=== PATIENT | male | born 1965 | race Caucasian/White ===

== ENCOUNTER 2024-05-29 19:00 | Outpatient (CLI) | payer OTHER, SELFPAY ==
--- OUTSIDE RECORDS SUMMARY | 2024-06-03 08:13 | XMS_ITS | Encounter Summary ---
Author Organization [facility] Address [address] [place] [address] Phone Care Team Providers Care Thickener Operator Name Role Phone Johnnie Red MD Primary Care Provider [phone] Reason for Referral * Diagnostic Imaging (Routine) - Closed Specialty Diagnoses / Procedures Referred By Rowdy carrillo Referred To Contact Diagnoses Orthopedic aftercare Procedures XR Hip Left 2 or 3 Views W Pelvis Claude Colbert MD [address] [place] [address] Phone: tel: fax: [address] [address] Referral ID Status Reason Start Date Expiration Date Visits Re quested Visits Authorized [id number] Closed 05/27/2022 06/26/2023 1 1 RUMENT FITTER Reason for Visit * Reason Comments Post-op Encounter Details Date Type Department Care Team (Latest Contact Info) Description 06/10/2022 8:50 AM INSTRUMENT FITTER Office Visit [facility] Building [address] [place] [id number] Claude Colbert MD [address] [place] [address] Orthopedic aftercare (Primary Dx); History of bilateral total hip arthroplasty Social History Tobacco Use Types Packs/Day Years Used Date Smoking Tobacco: Never Smokeless Tobacco: Never Alcohol Use Standard Drinks/Week Comments Yes 6 (1 standard drink = 0.6 oz pur e alcohol) AUDIT-C Answer Date Recorded Q1: How often do you have a drink containing alc ohol? 2-3 times a week 05/12/2022 Q2: How many drinks containi ng alcohol do you have on a typical day when you are drinking? 3 or 4 05/12/2022 Q3: How often do you have si x or more drinks on one occasion? Less than monthly 05/12/2022 Sex and Gender Information Value Date Recorded Sex Assigned at Not on file Legal Sex Male 10:40 AM CDT Gender Identity Not on file Sexual Orientation Not on file documented as of this encounter Progress Notes * Claude Colbert MD - 06/10/2022 8:50 AM CST Images from the original note were not included. POST- OPERATIVE PATIENT VISIT Arthroplasty Left Total Hip - Depuy - Left 05/12/2022 Arthroplasty Left Total Hip - Depuy - Right 05/23/2020 INTERIM HISTORY: Norman Lane is status post left total hip replacement. Patient seen today for routine follow up and is doing well. He overdid it in the garden one day andhad a increase in his pain but has been improving. PHYSICAL EXAM: Left Hip Pain: minimal with activity Incision: healing with no signs of infection, induration, or drainage, scab present Range of Motion: minimal pain with gentle range of motion assessment Pulses Intact: Yes Dependent Edema: No Neurological Status Intact: Yes Right Hip Pain: minimal with activity Incision: healed Range of Motion: minimal pain with gentle range of motion assessment Pulses Intact: Yes Dependent Edema: No Neurological Status Intact: Yes REVIEW OF XRAYS/STUDIES: Radiographs ordered and reviewed. Shows components are well positioned without any signs of loosening or failure. There is a small fragment of bone near the left lesser trochanter that was present onthe immediate postoperative radiographs. DX: Norman Lane is a 57 y.o. male status post left total hip replacement and is making appropriate progress. TREATMENT PLAN: 1. The patient has been full weight bearing. 2. Encourage exercises to strengthen core and hip muscles. FOLLOW UP: 1 year postop with XR This note written with assistance of Roosevelt Guevara MD Orthopaedic Surgery PGY-5 ATTENDING ATTESTATION I was present for the critical portion of the history, physical examination and participated in theradiographic review and medical decision making on this patient. I agree with the findings in the report of the above resident/fellow dictating using Dial a Dealer Direct software. Claude Colbert MD RUMENT FITTER documented in this encounter Plan of Treatment Not on file documented as of this encounter Results * XR Hip Left 2 or 3 Views W Pelvis (06/10/2022 8:57 AM INSTRUMENT FITTER) Anatomical Region Laterality Modality Lower Extremities, Hip, Pelvis Left C omputed Radiography 06/10/2022 9:00 AM INSTRUMENT FITTER Impressions 06/10/2022 9:00 AM INSTRUMENT FITTER 1. ??Unchanged left total hip arthroplasty in near-anatomic position. Electronically signed by: Rosey Gutierrez MD Narrative 06/10/2022 9:00 AM INSTRUMENT FITTER EXAMINATION: XR HIP LEFT 2 OR 3 VIEWS W PELVIS HISTORY: ??Left hip arthroplasty FINDINGS: 2 views of the left hip are compared to 05/12/2022. There is an unchanged left total hip arthroplasty in near-anatomic alignment. ??No acute periprosthetic fracture or osteolysis is identified. ??Procedure related soft tissue gas has resolved. Procedure Note Sandi Gutierrez MD - 06/10/2022 EXAMINATION: XR HIP LEFT 2 OR 3 VIEWS W PELVIS HISTORY: Left hip arthroplasty FINDINGS: 2 views of the left hip are compared to 05/12/2022. There is an unchanged left total hip arthroplasty in near-anatomic alignment. No acute periprosthetic fracture or osteolysis is identified. Procedure related soft tissue gas has resolved. IMPRESSION: 1. Unchanged left total hip arthroplasty in near-anatomic position. Electronically signed by: Rosey Gutierrez MD us Claude Colbert MD IMG XR PROCEDURES Final R esult documented in this encounter Visit Diagnoses Diagnosis Orthopedic aftercare- Primary Unspecified orthopedic aftercare History of bilateral total hip arthroplasty Orthopedic aftercare Unspecified orthopedic aftercare documented in this encounter Care Teams Thickener Operator Relationship Specialty Start Date End Date Johnnie Red MD [address] [place] [address] PCP - General Family Medicine 02/14/20 documented as of this encounter
--- OUTSIDE RECORDS SUMMARY | 2024-06-03 08:13 | XMS_ITS | Encounter Summary ---
Author Organization [facility] Address [address] [place] [address] Phone Care Team Providers Care Pharmacy Affairs Assistant Name Role Phone Johnnie Red MD Primary Care Provider Encounter Details Date Type Department Care Team (Late st Contact Info) Description 09/07/2022 7:00 AM CDT Telemedicine [facility] Orthopaedic Surgery [facility] Medical Office Building [address] [place] [id number] Claude Colbert MD [address] [facility] [address] [place] [address] Aftercare following bilateral hip joint replacement surgery (Primary Dx) Social History Tobacco Use Types Packs/Day Years [...] Progress Notes * Claude Colbert MD - 09/07/2022 7:00 AM CDT Images from the original note were not included. ESTABLISHED PATIENT VISIT This was a telemedicine visit with Norman Lane alone which took place via Telephone Other - patient preference . During the visit, I was located in the office and the patient was located at home in the state of [place]. The patient visit started at 7:07 a.m. and ended at 7:12 a.m.. This reflects the timespent in medical discussion. The patient has been informed that the visit may not be secure and acknowledged the information. I have explained the option of participating in a telephone or video visit during the COVID-19 public health emergency to the patient. After being given an opportunity to ask questions about and discuss this type of visit, the patient verbally consented to proceeding with the telephone/video visit.The patient understands that this service replaces an office visit and they may be billed and/or responsible for any applicable copayments. Claude Colbert MD INTERIM HISTORY Patient is now 4 months out from left total hip arthroplasty. After we last saw him we gave him some steroids for some continued swelling and stiffness. He states that he is definitely better on the steroids and he feels like he is made improvement with his range of motion and swelling has improved. His back pain is also not as irritated. He would like to get back into the gym. PHYSICAL EXAMINATION No acute distress, alert and oriented X 3. Per the patient he is doing better than he was before the steroids but does recognize that the steroid just in the last week and is feeling some of the stiffness and swelling returned but not as bad as it was before. REVIEW OF X-RAYS/STUDIES No new imaging IMPRESSION/DIAGNOSIS 4 months status post left total hip arthroplasty with some continued swelling and stiffness. TREATMENT/PLAN At this time we discussed continuing him on some low-dose steroid. We will drop him down to 3 mg a day for the next month to try and slowly wean him off. Patient is agreeable with this plan. He will let us know if anything changes. Assuming that he continues to do well we would have him come back for his 1 year follow-up surveillance checkup but glad to see him sooner if there is any issues or problems. Claude Colbert MD Operations Project Manager of Orthopedic Surgery Joint Preservation, Resurfacing, and Replacement Service [facility] Orthopedics [facility] Dr. Claude Colbert dictating using Fluency Direct. Replenishment Buyer variances may occur. documented in this encounter Plan of Treatment Not on file documented as of this encounter Visit Diagnoses Diagnosis Aftercare following bilateral hip joint replacement surgery- Primary documented in this encounter Care Teams Pharmacy Affairs Assistant Relationship Specialty Start Date End Date Johnnie Red MD [address] [place] [address] PCP - General Family Medicine 02/14/20 documented as of this encounter
--- OUTSIDE RECORDS SUMMARY | 2024-06-03 08:13 | XMS_ITS | Clinical Summary ---
Author Organization [facility] Address [address] [place] [address] Care Team Providers Care Early Morning Name Role Phone Johnnie Red MD Primary Care Provider [phone] Allergies No known active allergies Medications cetirizine (ZyrTEC) 10 mg tabletIndicatio ns:Seasonal Allergic Rhinitis Take 1 tablet (10 mg total) by mouth as needed for allergies Active mometasone (NASONEX) 50 mcg/actuation nasal sprayIndication s:Allergic Rhinitis Administer 2 sprays into each nostril as needed Active celecoxib (CeleBREX) 200 mg capsuleIndicati ons:Osteoarthri tis,Postoperati ve Acute Pain Take 1 tablet twice daily after surgery until prescription is finished. You should already have this prescription at home. Start on morning of 05/24/2020. 10 capsule 0 Active traMADoL (ULTRAM) 50 mg tabletIndicatio ns:Pain Take 1 tablet (50 mg total) by mouth every 8 (eight) hours as needed for pain (1st line) 42 tablet 2 Active pregabalin (LYRICA) 75 mg capsuleIndicati ons:Postoperati ve Acute Pain Take 1 capsule (75 mg total) by mouth 2 (two) times a day for 14 days 28 capsule 2 Active oxyCODONE (ROXICODONE) 5 mg immediate release tabletIndicatio ns:Pain Take 1 tablet (5 mg total) by mouth every 4 (four) hours as needed for pain for up to 30 doses 30 tablet 2 Active meloxicam (MOBIC) 15 mg tabletIndicatio ns:Osteoarthrit is Take 1 tablet (15 mg total) by mouth daily 30 tablet 2 Active aspirin 81 mg enteric coated tabletIndicatio ns:prevention of thrombosis Take 1 tablet (81 mg total) by mouth 2 (two) times a day 60 tablet 2 Active ergocalciferol (VITAMIN D) 50,000 unit capsuleIndicati ons:Vitamin D Deficiency Take 1 capsule (50,000 Units total) by mouth once a week 10 capsule 2 Active docusate sodium (COLACE) 100 mg capsuleIndicati ons:constipatio n Take 1 capsule (100 mg total) by mouth 2 (two) times a day Active predniSONE (DELTASONE) 1 mg tablet Take 3 tablets daily 90 tablet 3 Active tadalafiL (CIALIS) 20 mg tablet Take 1 tablet (20 mg total) by mouth 3 Active Active Problems Problem Noted Date Diagnosed Date Arthritis of left hip 05/12/2022 Vitamin D deficiency 04/28/2022 Primary osteoarthritis of left hip 02/04/2022 Overview (02/04/2022): Added automatically from request for surgery [id number] RUI on CPAP 05/21/2020 Class 2 obesity in adult 05/21/2020 Primary osteoarthritis of right hip 04/29/2020 Overview (04/29/2020): Added automatically from request for surgery [id number] Immunizations Name Administration Dates Next Due Flucelvax Influenza Quad 04/26/2020,04/01/2017 Surgical History Surgery Date Site/Laterality Comments COLONOSCOPY HIP ARTHROPLASTY Right Medical History Medical History Date Comments Osteoarthritis Sleep apnea cpap Allergic rhinitis Family History Medical History Relation Name Comments Coronary artery disease Father Anesthesia problems Neg Hx Relation Name Status Comments Father Social History Tobacco Use Types Packs/Day Years Used Date Smoking Tobacco: Never Smokeless Tobacco: Never Tobacco Cessation:Counseling Given: Not Answered Alcohol Use Standard Drinks/Week Comments Yes 6 [...] on file Sexual Orientation Not on file Obstetrics History Last Filed Vital Signs Vital Sign Reading Time Taken Comments Blood Pressure 132/64 05/29/2022 11:34 AM FIREWORKS INSPECTOR Pulse 68 05/29/2022 11:34 AM FIREWORKS INSPECTOR Temperature 35.9 ??C (96.7 ??F) 05/29/2022 11:[address] Respiratory Rate 18 05/29/2022 11:34 AM FIREWORKS INSPECTOR Oxygen Saturation 98% 05/29/2022 11:34 AM FIREWORKS INSPECTOR Inhaled Oxygen Concentration - - Weight 130.2 kg (287 lb) 05/12/2022 5:20 AM FIREWORKS INSPECTOR Height 193 cm (6' 4 ) 05/14/2022 11:30 AM FIREWORKS INSPECTOR Body Mass Index 34.93 05/12/2022 5:20 AM FIREWORKS INSPECTOR Plan of Treatment Health Maintenance Due Date Last Done Comments Colon Cancer Screening-Colonoscopy 1965 Depression Screening 1965 Hepatitis C Screening 1965 Prostate Cancer Screening-PSA 1965 DTaP/Tdap/Td Vaccine (1 - Tdap) 01/16/1975 Hepatitis B Screening 01/16/1982 Regular Well Visit/Exam 18-64 01/16/1982 Zoster Vaccine (1 of 2) 01/16/2014 Influenza Vaccine (#1) 2024 0, 04/01/2017 Pneumococcal vaccine <65 Aged Out No longer eligible based on patient's age to complete this topic Medical Devices Implanted Type Area Telegraph Lineman Device Identifier Shelf Expiration Date Model / Serial / Lot DepStyleTread Orthopaedics Inc [id number] Cup 55mm Acetabular Bi Mentum Femoral Proximal Press Fit - [id number] - [id number] Implanted:Qty: 1 on 05/23/2020 by Claude Colbert MD at [facility] Right: Hip Depuy [employer] [id number] 02/28/2024 [id number] / [id number] / [id number] Depuy [employer] [id number] Liner 55mm 28mm Acetabular Bi Mentum Femoral Proximal Polyethylene - [id number] - [id number] Implanted:Qty: 1 on 05/23/2020 by Claude Colbert MD at [facility] Right: Hip Depuy [employer] [id number] 11/28/2023 [id number] / [id number] / [id number] Depuy [employer] [id number] Actis Collar Hip 9 High Offset Stem Femoral - [id number] Implanted:Qty: 1 on 05/23/2020 by Claude Colbert MD at [facility] Right: Hip Depuy [employer] [id number] 02/27/2030 [id number] / / [id number] Depuy Orthopaed[employer] Inc [id number] Articul/Lake 28mm Cementless Hip +1.5mm 12/14 Taper Head Femoral Latex Free - [id number] Implanted:Qty: 1 on 05/23/2020 by Claude Colbert MD at [facility] Right: Hip Depuy [employer] [id number] 03/30/2025 [id number] / / [id number] Depuy [employer] Cup 55mm Acetabular Bi Mentum Femoral Proximal Press Fit [id number] - [id number] Implanted:Qty: 1 on 05/12/2022 by Claude Colbert MD at [facility] Left: Hip Depuy [employer] [id number] 06/30/2024 [id number] / / [id number] Description:Implant pause pe rformed Depuy [employer] Inc Liner Acet Hip Size 28 Poly Bi Mentum Altrx 55mm [id number] - [id number] Implanted:Qty: 1 on 05/12/2022 by Claude Colbert MD at [facility] Left: Hip Depuy [employer] [id number] 02/27/2027 [id number] / / [id number] Description:Implant pause pe rformed Depuy [employer] Inc Actis L111 Mm Collar Hip 8 High Offset Stem Femoral [id number] - [id number] Implanted:Qty: 1 on 05/12/2022 by Cluade Colbert MD at [facility] Left: Hip Depuy [employer] [id number] 02/28/2032 [id number] / / [id number] Description:Implant pause pe rformed Depuy [employer] Inc Articul/Lake 28mm Cementless Hip +1.5mm 05/13 Taper Head Femoral Latex Free [id number] - [id number] Implanted:Qty: 1 on 05/12/2022 by Claude Colbert MD at [facility] Left: Hip Depuy [employer] [id number] 02/27/2027 [id number] / / [id number] Description:Implant pause pe rformed Insurance [facility] CHO[facility] PL[facility] Advance Directives For more information, please contact: [phone] * Full Code (Latest Code Status on File) Date Activated Date Inactivated Comments 05/23/2020 9:13 AM 05/23/2020 5:14 PM Care Teams Early Morning Relationship Specialty Start Date End Date Johnnie Red MD [address] [place] [address] PCP - General Family Medicine 02/14/20
--- OUTSIDE RECORDS SUMMARY | 2024-06-03 08:13 | XMS_ITS | Referral Summary ---
Author Organization [facility] Address [address] [place] [address] Care Team Providers Care Optical Fabrication Technician Name Role Phone Johnnie Red MD Primary Care Provider [phone] Allergies No known active allergies Medications cetirizine [...] (02/04/2022): Added automatically from request for surgery [id number] RUI on CPAP 05/21/2020 Class 2 obesity in adult 05/21/2020 Primary osteoarthritis of right hip 04/29/2020 Overview (04/29/2020): Added automatically from request for surgery [id number] Immunizations Name Administration Dates Next Due Flucelvax Influenza Quad 04/26/2020,04/01/2017 Social History Tobacco Use Types Packs/Day Years [...] on file Sexual Orientation Not on file Last Filed Vital Signs Vital Sign Reading Time Taken Comments Blood Pressure 132/64 05/29/2022 11:34 AM DIGITAL MARKETING OFFICER Pulse 68 05/29/2022 11:34 AM DIGITAL MARKETING OFFICER Temperature 35.9 ??C (96.7 ??F) 05/29/2022 11:[address] Respiratory Rate 18 05/29/2022 11:34 AM DIGITAL MARKETING OFFICER Oxygen Saturation 98% 05/29/2022 11:34 AM DIGITAL MARKETING OFFICER Inhaled Oxygen Concentration - - Weight 130.2 kg (287 lb) 05/12/2022 5:20 AM DIGITAL MARKETING OFFICER Height 193 cm (6' 4 ) 05/14/2022 11:30 AM DIGITAL MARKETING OFFICER Body Mass Index 34.93 05/12/2022 5:20 AM DIGITAL MARKETING OFFICER Plan of Treatment Not on file Medical Devices Implanted Type Area It Corporate Recruiter Device Identifier Shelf Expiration Date Model / Serial / Lot Depuy Orthopaedics Inc [id number] Cup 55mm Acetabular Bi Mentum Femoral Proximal Press Fit - [id number] - [id number] Implanted:Qty: 1 on 05/23/2020 by Claude Colbert MD at [facility] Right: Hip Depuy [employer] Inc [id number] 02/28/2024 [id number] / [id number] / [id number] Depuy [employer] [id number] Liner 55mm 28mm Acetabular Bi Mentum Femoral Proximal Polyethylene - [id number] - [id number] Implanted:Qty: 1 on 05/23/2020 by Claude Colbert MD at [facility] Right: Hip Depuy [employer] Inc [id number] 11/28/2023 [id number] / [id number] / [id number] Depuy [employer] [id number] Actis Collar Hip 9 High Offset Stem Femoral - [id number] Implanted:Qty: 1 on 05/23/2020 by Claude Colbert MD at [facility] Right: Hip Depuy [employer] Inc [id number] 02/27/2030 [id number] / / [id number] Depuy [employer] Inc [id number] Articul/Lake 28mm Cementless Hip +1.5mm /14 Taper Head Femoral Latex Free - [id number] Implanted:Qty: 1 on 05/23/2020 by Claude Colbert MD at [facility] Right: Hip Depuy [employer] Inc [id number] 03/30/2025 [id number] / / [id number] Depuy [employer] Cup 55mm Acetabular Bi Mentum Femoral Proximal Press Fit [id number] - [id number] Implanted:Qty: 1 on 05/12/2022 by Claude Colbert MD at [facility] Left: Hip Depuy [employer] [id number] 06/30/2024 [id number] / / [id number] Description:Implant pause pe rformed Depuy [employer] Inc Liner Acet Hip Size 28 Poly Bi Mentum Altrx 55mm [id number] - [id number] Implanted:Qty: 1 on 05/12/2022 by Claude Colbert MD at [facility] Left: Hip Depuy [employer] [id number] 02/27/2027 [id number] / / [id number] Description:Implant pause pe rformed Depuy [employer] Inc Actis L111 Mm Collar Hip 8 High Offset Stem Femoral [id number] - [id number] Implanted:Qty: 1 on 05/12/2022 by Claude Colbert MD at [facility] Left: Hip Depuy [employer] [id number] 02/28/2032 [id number] / / [id number] Description:Implant pause pe rformed Depuy [employer] Inc Articul/Lake 28mm Cementless Hip +1.5mm 14 Taper Head Femoral Latex Free [id number] - [id number] Implanted:Qty: 1 on 05/12/2022 by Claude Colbert MD at [facility] Left: Hip [employer]uy [employer] [id number] 02/27/2027 [id number] / / [id number] Description:Implant pause pe rformed Insurance Advance Directives For more information, please contact: [phone] * Full Code (Latest Code Status on File) Date Activated Date Inactivated Comments 05/23/2020 9:13 AM 05/23/2020 5:14 PM Care Teams Optical Fabrication Technician Relationship Specialty Start Date End Date Johnnie Red MD [address] [place] [address] PCP - General Family Medicine 02/14/20
--- OUTSIDE RECORDS SUMMARY | 2024-06-03 08:13 | XMS_ITS | Encounter Summary ---
Author Organization [facility] Address [address] [place] [address] Phone Care Team Providers Care Bull Ladle Tender Name Role Phone Johnnie Red MD Primary Care Provider [phone] Reason for Referral * Diagnostic Imaging (Routine) - Closed Specialty Diagnoses / Procedures Referred By Rowdy carrillo Referred To Contact Diagnoses Aftercare following bilateral hip joint replacement surgery Procedures XR Hip Left 2 or 3 Views W Pelvis Claude Colbert MD [facility] [address] [address] Phone: tel: fax: [facility] Radiology [address] [place] [address] Phone: tel: Referral ID Status Reason Start Date Expiration Date Visits Re quested Visits Authorized [id number] Closed 06/04/2023 07/03/2024 1 1 SLINGER Reason for Visit * Reason Comments Pain Encounter Details Date Type Department Care Team (Late st Contact Info) Description 06/09/2023 10:10 AM DOOR SLINGER Office Visit [facility] Orthopaedic Surgery [address] [place] [address] Medical Office Building [address] [place] [id number] Claude Colbert MD [address] [facility] [address] [place] [address] Aftercare following bilateral hip joint replacement surgery [...] Progress Notes * Claude Colbert MD - 06/09/2023 10:10 AM CST RETURN PATIENT VISIT This is [facility] scribing for Dr. Claude Colbert in his presence. INTERIM HISTORY: Norman Lane is status 1 year post left total hip replacement. Patient seen today for routine follow up and is doing well. States his left incision area itches. Disucssed to use Vasaline and if not improved to call and we will send some steroid cream to help calm down the itch. Other than that feels great with both hips. Mccray Hip Score: LEFT HIP PAIN: None LIMP: None SUPPORT: None DISTANCE: Unlimited STAIRS: Normal SITTING: Any Chair 1 Hour SHOES/SOCKS: Easy PUBLIC TRANSPORTATION: Yes PHYSICAL EXAM: Height: Weight: BMI: There is no height or weight on file to calculate BMI. Left Hip Hip Pain is noted: None Skin Status: Previous incision healed Trendelenberg: Negative Range of Motion: Start of flexion: 0 End of flexion: 100 Abduction: 30 Adduction: 20 ERE: 40 SHEILA: 20 Deformity: No deformity noted Leg Length Discrepancy: None Neurovascular status: intact Abductor Strength: 5/5 Pulses Intact: Yes Dependent Edema: No Neurological Status Intact: Yes REVIEW OF XRAYS/STUDIES: Radiographs ordered and reviewed. Shows components are well positioned without any signs of loosening or failure. DX: Norman Lane is a 58 y.o. male status post left total hip replacement. TREATMENT PLAN: 1. The patient has been full weight bearing. 2. Encourage exercises to strengthen core and hip muscles. 3. Next visit for his 5 year post op- will look at both hips - April 2027 FOLLOW UP: As long as the patient continues to do well then follow up for routine surveillance visits with ourNurse Practitioner/Physician Venipuncturist to monitor radiograph images. Patient is welcome to come back and see if there are any issues or problems. [facility] Scribe for Dr Claude Colbert Joint Reconstruction Department of Orthopaedic Surgery [facility] Orthopaedics Claude Colbert MD Chiller Operator of Orthopedic Surgery Joint Preservation, Resurfacing, and Replacement Service [facility] Orthopedics [facility] SLINGER documented in this encounter Plan of Treatment Not on file documented as of this encounter Results * XR Hip Left 2 or 3 Views W Pelvis (06/09/2023 9:53 AM DOOR SLINGER) Anatomical Region Laterality Modality Lower Extremities, Hip, Pelvis Left C omputed Radiography 06/09/2023 10:2 2 AM DOOR SLINGER Impressions 06/09/2023 10:22 AM DOOR SLINGER Unchanged left total hip arthroplasty in near-anatomic position. Electronically signed by: Navi Paul M.D. Narrative 06/09/2023 10:22 AM DOOR SLINGER EXAMINATION: XR HIP LEFT 2 OR 3 VIEWS W PELVIS HISTORY: Left hip osteoarthritis FINDINGS: 2 view examination of the left hip is compared with a study from 06/10/2022. ??The left total hip arthroplasty remains in near-anatomic position. ??There is no fracture, asymmetric liner wear, or component migration. ??Right total hip arthroplasty is also unchanged. Procedure Note Navi Paul MD - 06/09/2023 EXAMINATION: XR HIP LEFT 2 OR 3 VIEWS W PELVIS HISTORY: Left hip osteoarthritis FINDINGS: 2 view examination of the left hip is compared with a study from 06/10/2022. The left total hip arthroplasty remains in near-anatomic position. There is no fracture, asymmetric liner wear, or component migration. Right total hip arthroplasty is also unchanged. IMPRESSION: Unchanged left total hip arthroplasty in near-anatomic position. Electronically signed by: Navi Paul M.D. Claude Colbert MD IMG XR PROCEDURES Final R esult documented in this encounter Visit Diagnoses Diagnosis Aftercare following bilateral hip joint replacement surgery- Primary Aftercare following bilateral hip joint replacement surgery documented in this encounter Historical Medications * This list may reflect changes made after this encounter. tadalafiL (CIALIS) 20 mg tablet Take 1 tablet (20 mg total) by mouth 04/28/2023 added in this encounter Care Teams Bull Ladle Tender Relationship Specialty Start Date End Date Johnnie Red MD [facility] [place] [address] PCP - General Family Medicine 02/14/20 documented as of this encounter
--- OUTSIDE RECORDS SUMMARY | 2024-06-03 08:13 | XMS_ITS | Encounter Summary ---
Author Organization [facility] Address [address] [place] [address] Phone Care Team Providers Care Robotics Application Engineer Name Role Phone Johnnie Red MD Primary Care Provider [phone] Encounter Details Date Type Department Care Team (Late st Contact Info) Description 09/07/2022 Orders Only [facility] Orthopaedic Surgery [address] [place] [address] Medical Office Building 4 [address] [place] [id number] Claude Colbert MD [address] [facility] [address] [place] [address] Social History Tobacco Use Types Packs/Day Years [...] on file documented as of this encounter Ordered Prescriptions Prescription Sig Dispense Quantity Refills Last Filled Start Date End Date predniSONE (DELTASONE) 1 mg tablet Take 3 tablets daily 90 tablet 09/07/2022 documented in this encounter Plan of Treatment Not on file documented as of this encounter Visit Diagnoses Not on filedocumented in this encounter Care Teams Robotics Application Engineer Relationship Specialty Start Date End Date Johnnie Red MD [address] [place] [address] PCP - General Family Medicine 02/14/20 documented as of this encounter
--- OUTSIDE RECORDS SUMMARY | 2024-06-03 08:13 | XMS_ITS | Encounter Summary ---
Author Organization [facility] Address [address] [place] [address] Care Team Providers Care Slp Teacher Name Role Phone Johnnie Red MD Primary Care Provider [phone] Reason for Referral * Diagnostic Imaging (Routine) - Closed Specialty Diagnoses / Procedures Referred By Contac t Referred To Contact Diagnoses Aftercare following bilateral hip joint replacement surgery Procedures XR Hip Left 2 or 3 Views W Pelvis Claude Colbert MD [facility] [place] [address] Phone: tel: fax: [facility] Radiology [address] [place] [phone] Phone: tel: Referral ID Status Reason Start Date Expiration Date Visits Re quested Visits Authorized [id number] Closed 06/04/2023 07/03/2024 1 1 CUP EXPANDER Reason for Visit * Diagnostic Imaging (Routine) - Closed Specialty Diagnoses / Procedures Referred By Contac t Referred To Contact Diagnoses Aftercare following bilateral hip joint replacement surgery Procedures XR Hip Left 2 or 3 Views W Pelvis Claude Colbert MD [facility] [place] [address] Phone: tel: fax: [facility] Radiology [address] [place] [phone] Phone: tel: Referral ID Status Reason Start Date Expiration Date Visits Re quested Visits Authorized [id number] Closed 06/04/2023 07/03/2024 1 1 Encounter Details Date Type Department Care Team (Latest Contact Info) Description 06/09/2023 9:43 AM FUSE CUP EXPANDER - 06/09/2023 11:59 PM FUSE CUP EXPANDER Hospital Encounter [id number] Radiology [address] [facility] [address] [place] [address] Aftercare following bilateral hip joint replacement surgery Discharge Disposition: Discharge to home or self care Social History Tobacco Use Types Packs/Day Years [...] on file documented as of this encounter Medications at Time of Discharge celecoxib (CeleBREX) 200 mg capsuleIndicatio ns:Osteoarthriti s,Postoperative Acute Pain Take 1 tablet twice daily after surgery until prescription is finished. You should already have this prescription at home. Start on morning of 05/24/2020. 10 capsule 05/23/2020 cetirizine (ZyrTEC) 10 mg tabletIndication s:Seasonal Allergic Rhinitis Take 1 tablet (10 mg total) by mouth as needed for allergies docusate sodium (COLACE) 100 mg capsuleIndicatio ns:constipation Take 1 capsule (100 mg total) by mouth 2 (two) times a day mometasone (NASONEX) 50 mcg/actuation nasal sprayIndications :Allergic Rhinitis Administer 2 sprays into each nostril as needed oxyCODONE (ROXICODONE) 5 mg immediate release tabletIndication s:Pain Take 1 tablet (5 mg total) by mouth every 4 (four) hours as needed for pain for up to 30 doses 30 tablet 05/12/2022 predniSONE (DELTASONE) 1 mg tablet Take 3 tablets daily 90 tablet 09/07/2022 tadalafiL (CIALIS) 20 mg tablet Take 1 tablet (20 mg total) by mouth 04/28/2023 traMADoL (ULTRAM) 50 mg tabletIndication s:Pain Take 1 tablet (50 mg total) by mouth every 8 (eight) hours as needed for pain (1st line) 42 tablet 05/12/2022 documented as of this encounter Discharge Disposition Disposition Code Departure Means Destination Discharge to home or self care documented in this encounter Plan of Treatment Not on file documented as of this encounter Procedures Procedure Name Priority Date/Time Associated Diagnosis Comments XR HIP LEFT W PELVIS 2 OR 3 VIEWS Schedule Routine, Read Routine (OP Routine) 06/09/2023 9:53 AM FUSE CUP EXPANDER Aftercare following bilateral hip joint replacement surgery documented in this encounter Results * XR Hip Left 2 or 3 Views W Pelvis (06/09/2023 9:53 AM FUSE CUP EXPANDER) Anatomical Region Laterality Modality Lower Extremities, Hip, Pelvis Left C omputed Radiography 06/09/2023 10:2 2 AM FUSE CUP EXPANDER Impressions 06/09/2023 10:22 AM FUSE CUP EXPANDER Unchanged left total hip arthroplasty in near-anatomic position. Electronically signed by: Navi Paul M.D. Narrative 06/09/2023 10:22 AM FUSE CUP EXPANDER EXAMINATION: XR HIP LEFT 2 OR 3 [...] Diagnosis Aftercare following bilateral hip joint replacement surgery documented in this encounter Care Teams Slp Teacher Relationship Specialty Start Date End Date Johnnie Red MD [address] [place] [address] PCP - General Family Medicine 02/14/20 documented as of this encounter
--- OUTSIDE RECORDS SUMMARY | 2024-06-03 08:13 | XMS_ITS | Encounter Summary ---
Author Organization [facility] Address [address] [place] [address] Phone Care Team Providers Care Loan Originator Name Role Phone Johnnie Red MD Primary Care Provider [phone] Encounter Details Date Type Department Care Team (Late st Contact Info) Description 06/03/2022 6:30 AM SCRAP YARD WORKER Telemedicine [facility] Orthopaedic Surgery [address] [place] [address] Medical Office Building [address] [place] [phone] Claude Colbert MD [address] [facility] [address] [place] [address] Surgical follow-up care (Primary Dx) Social History Tobacco Use Types [...] Progress Notes * Claude Colbert MD - 06/03/2022 6:30 AM CST Images from the original note were not included. ESTABLISHED PATIENT VISIT This was a telemedicine visit with Norman Lane alone which took place via Telephone Other - patient preference . During the visit, I was located in the office and the patient was located at home in the state of [place]. The patient visit started at 6:34 a.m. and ended at 6:40 a.m.. This reflects the timespent in medical [...] Colbert MD INTERIM HISTORY Patient is now approximately 3 weeks out from left total hip replacement. He was doing well but last week was outside doing some walking and then started developing some increasing pain the next day.He has been using his cane but has been able to put weight on it. The pain seems to be subsiding atthis point compared to where was initially. He just wanted to call to make sure that everything wasokay. PHYSICAL EXAMINATION No acute distress, alert and oriented X 3. Per the patient no substantial change to his incision. He is walking with a cane. His pain that wasflared up after he did some walking outside seems to be subsiding. REVIEW OF X-RAYS/STUDIES No new imaging at this time although I did tell patient that we can only really assess the hip through an x-ray at this point. IMPRESSION/DIAGNOSIS Likely just a flare of his soft tissues following his recent left hip replacement surgery 3 weeks ago. TREATMENT/PLAN He will let my office know if things change otherwise we will see him for his scheduled visit next week. We can gladly have him come in sooner if anything gets worse. Patient understands. All questions answered. Claude Colbert MD Showroom Sales Consultant of Orthopedic Surgery Joint Preservation, Resurfacing, and Replacement Service [facility] Orthopedics [facility] Dr. Claude Colbert dictating using Fluency Direct. First Breaker Feeder variances may occur. P YARD WORKER documented in this encounter Plan of Treatment Not on file documented as of this encounter Visit Diagnoses Diagnosis Surgical follow-up care- Primary documented in this encounter Care Teams Loan Originator Relationship Specialty Start Date End Date Johnnie Rde MD [address] [place] [address] PCP - General Family Medicine 02/14/20 documented as of this encounter
--- OUTSIDE RECORDS SUMMARY | 2024-06-03 08:13 | XMS_ITS | Encounter Summary ---
Author Organization [facility] Healthcare Address [address] [place] [address] Care Team Providers Care Sheet Roller Operator Name Role Phone Johnnie Red MD Primary Care Provider [phone] Reason for Referral * Diagnostic Imaging (Routine) - Closed Specialty Diagnoses / Procedures Referred By Contac t Referred To Contact Diagnoses Orthopedic aftercare Procedures XR Hip Left 2 or 3 Views W Pelvis Claude Colbert MD [address] [address] Phone: tel: fax: [place] [address] [place] [address] Referral ID Status Reason Start Date Expiration Date Visits Re quested Visits Authorized [id number] Closed 05/27/2022 06/26/2023 1 1 STANT BRANCH OPERATIONS MANAGER Reason for Visit * Diagnostic Imaging (Routine) - Closed Specialty Diagnoses / Procedures Referred By Contac t Referred To Contact Diagnoses Orthopedic aftercare Procedures XR Hip Left 2 or 3 Views W Pelvis Claude Colbert MD [address] [facility] [address] [place] [address] Phone: tel: fax: [place] [address] [place] [address] Referral ID Status Reason Start Date Expiration Date Visits Re quested Visits Authorized [id number] Closed 05/27/2022 06/26/2023 1 1 Encounter Details Date Type Department Care Team (Latest Contact Info) Description 06/10/2022 8:30 AM ASSISTANT BRANCH OPERATIONS MANAGER - 06/10/2022 11:59 PM ASSISTANT BRANCH OPERATIONS MANAGER Hospital Encounter [facility] Radiology [address] [facility] [address] [place] [address] Orthopedic aftercare Discharge Disposition: Discharge to home or self [...] this encounter Medications at Time of Discharge aspirin 81 mg enteric coated tabletIndication s:prevention of thrombosis Take 1 tablet (81 mg total) by mouth 2 (two) times a day 60 tablet 05/12/2022 celecoxib (CeleBREX) 200 mg capsuleIndicatio ns:Osteoarthriti s,Postoperative [...] by mouth 2 (two) times a day ergocalciferol (VITAMIN D) 50,000 unit capsuleIndicatio ns:Vitamin D Deficiency Take 1 capsule (50,000 Units total) by mouth once a week 10 capsule 05/12/2022 meloxicam (MOBIC) 15 mg tabletIndication s:Osteoarthritis Take 1 tablet (15 mg total) by mouth daily 30 tablet 05/12/2022 mometasone (NASONEX) 50 mcg/actuation nasal sprayIndications :Allergic Rhinitis Administer 2 sprays into each nostril as needed oxyCODONE (ROXICODONE) 5 mg immediate release tabletIndication s:Pain Take 1 tablet (5 mg total) by mouth every 4 (four) hours as needed for pain for up to 30 doses 30 tablet 05/12/2022 traMADoL (ULTRAM) 50 mg tabletIndication s:Pain Take [...] VIEWS Schedule Routine, Read Routine (OP Routine) 06/10/2022 8:57 AM ASSISTANT BRANCH OPERATIONS MANAGER Orthopedic aftercare documented in this encounter Results * XR Hip Left 2 or 3 Views W Pelvis (06/10/2022 8:57 AM ASSISTANT BRANCH OPERATIONS MANAGER) Anatomical Region Laterality Modality Lower Extremities, Hip, Pelvis Left C omputed Radiography 06/10/2022 9:00 AM ASSISTANT BRANCH OPERATIONS MANAGER Impressions 06/10/2022 9:00 AM ASSISTANT BRANCH OPERATIONS MANAGER 1. ??Unchanged left total hip arthroplasty in near-anatomic position. Electronically signed by: Rosey Gutierrez MD Narrative 06/10/2022 9:00 AM ASSISTANT BRANCH OPERATIONS MANAGER EXAMINATION: XR HIP LEFT 2 OR 3 [...] position. Electronically signed by: Rosey Gutierrez MD Claude Colbert MD IMG XR PROCEDURES Final R esult documented in this encounter Visit Diagnoses Diagnosis Orthopedic aftercare Unspecified orthopedic aftercare documented in this encounter Care Teams Sheet Roller Operator Relationship Specialty Start Date End Date Johnnie Red MD [address] [place] [address] PCP - General Family Medicine 02/14/20 documented as of this encounter
--- OUTSIDE RECORDS SUMMARY | 2024-06-03 08:13 | XMS_ITS | Encounter Summary ---
Author Organization [facility] Address [address] [place] [address] Phone Care Team Providers Care Glass Blower Helper Name Role Phone Johnnie Red MD Primary Care Provider [phone] Reason for Visit * Reason Comments Post-op Encounter Details Date Type Department Care Team (Late st Contact Info) Description 07/22/2022 7:40 AM RECRUITING COORDINATOR Office Visit [facility] Orthopaedic Surgery [address] [facility] Medical Office Building [address] [place] [phone] Claude Colbert MD [address] [place] [address] [address] [place] [address] Left hip pain (Primary Dx); Aftercare following bilateral hip joint replacement surgery Social History Tobacco Use Types Packs/Day Years [...] Filled Start Date End Date predniSONE (DELTASONE) 5 mg tabletIndications: Left hip pain Take 1 tablet (5 mg) by mouth daily Do not start until after finished with the medrol dose pack. 30 tablet 07/22/2022 3 methylPREDNISolone (MEDROL DOSEPACK) 4 mg DosepackIndication s:Left hip pain Take as directed on package 1 packet 07/22/2022 3 documented in this encounter Progress Notes * Claude Colbert MD - 07/22/2022 7:40 AM CST Images from the original note were not included. POST- OPERATIVE PATIENT VISIT Arthroplasty Left Total Hip - Depuy - Left 05/12/2022 Arthroplasty Left Total Hip - Depuy - Right 05/23/2020 INTERIM HISTORY: Norman Lane is status post left total hip replacement. Patient is here for follow up in his doing okay. He reports some difficulty lifting his leg with pain anteriorly. Reports some occasional numbness done to his toes. Overall this is getting better. [place] have a history of lumbar spine disc disease. PHYSICAL EXAM: Left Hip Pain: minimal with activity Incision: healing with no signs of infection, induration, or drainage, scab present Range of Motion: minimal pain with gentle range of motion assessment Pulses Intact: Yes Dependent Edema: No Neurological Status Intact: Yes 4/5 hip flexor strength Right Hip Pain: minimal with activity Incision: [...] to strengthen core and hip muscles. 3. Medrol Dosepak for 1 week, prednisone 5 mg, 30# FOLLOW UP: Telemedicine 6 weeks Simone Guerra MD Clinical Fellow, Adult Reconstruction and Hip Preservation ATTENDING ATTESTATION I was present for the critical portion of the history, physical examination and participated in theradiographic review and medical decision making on this patient. I agree with the findings in the report of the above resident/fellow dictating using Fluency Direct software. Claude Colbert MD UITING COORDINATOR documented in this encounter Plan of Treatment Not on file documented as of this encounter Visit Diagnoses Diagnosis Left hip pain- Primary Pain in joint, pelvic region and thigh Aftercare following bilateral hip joint replacement surgery documented in this encounter Care Teams Glass Blower Helper Relationship Specialty Start Date End Date Johnnie Red MD [address] [place] [address] PCP - General Family Medicine 02/14/20 documented as of this encounter
--- OUTSIDE RECORDS SUMMARY | 2024-06-03 08:13 | XMS_ITS | Encounter Summary ---
Author Organization [facility] Address [address] [place] [address] Phone Care Team Providers Care Bridal Consultant Name Role Phone Johnnie Red MD Primary Care Provider [phone] Reason for Referral * Consultation (Routine) - Pending Review Specialty Diagnoses / Procedures Referred By Rowdy carrillo Referred To Contact Physical Therapy Diagnoses Bilateral hip pain Claude Colbert MD [address] [facility] [address] [place] [address] Phone: tel: fax: External Order Referral ID Status Reason Start Date Expiration Date Visits Requested Visits Authorized [id number] Pending Review Specialty Services Required 08/06/2023 09/04/2024 24 24 Question Answer PTRFR PT Evaluate and Treat Therapy options discussed with patient? Yes Location provided for therapy services is: Patient requested/Patient preferred Please select the performing region: External Order [[id number]] # of visits: 24 Comments POST-OPERATIVE TOTAL HIP - PHYSICAL THERAPY REFERRAL DATE: 08/06/2023 1964 Diagnosis: Bilateral Total Hip Replacement Date of Surgery: 05/12/22 and 05/13/2020 Surgical Approach: Posterior Duration of therapy: 2-3 times per week for 4-6 weeks Evaluate and Treat Weight Bearing Status: Full weight bearing bilateral lower extremity Quad Strengthening, Active/Active Assisted ROM, Passive ROM, Strengthening, especially abductors, Stretching, and Home Exercise Program Restrictions: none Claude Colbert M.D., , Claude Colbert MD STANT PLANT MANAGER Encounter Details Date Type Department Care Team (Late st Contact Info) Description 08/06/2023 Orders Only [facility] Orthopaedic Surgery [address] [facility] Medical Office Building [address] [place] [address] Claude Colbert MD [address] [facility] [address] [place] [address] Bilateral hip pain (Primary Dx) Social History Tobacco Use Types [...] on file documented as of this encounter Plan of Treatment Scheduled Referrals Name Type Priority Associated Diagnoses Order Schedule Ambulatory referral order to Physical Therapy - Outpatient Referral Routine Bilateral hip pain Expected: 08/20/2023 (Approximate), Expires: 08/05/2024 documented as of this encounter Visit Diagnoses Diagnosis Bilateral hip pain- Primary Pain in joint, pelvic region and thigh documented in this encounter Care Teams Bridal Consultant Relationship Specialty Start Date End Date Johnnie Red MD [address] [place] [address] PCP - General Family Medicine 02/14/20 documented as of this encounter
--- OUTSIDE RECORDS SUMMARY | 2024-06-03 08:13 | XMS_ITS | Encounter Summary ---
Author Organization [facility] Address [address] [place] [address] Phone Care Team Providers Care Pet Food Deboner Name Role Phone Johnnie Red MD Primary Care Provider [phone] Reason for Visit * Auth/Cert Specialty Diagnoses / Procedures Referred By Contac t Referred To Contact Referral ID Status Reason Start Date Expiration Date Visits Re quested Visits Authorized [id number] 1 150 Encounter Details Date Type Department Care Team (Late st Contact Info) Description 05/29/2022 Home Care Visit [facility] Home Health [address] [address] [address] [place] [address] Nabila Patel, PT PT NON OASIS DISCHARGE Social History Tobacco Use Types Packs/Day Years [...] as of this encounter Plan of Treatment Not on file documented as of this encounter Visit Diagnoses Not on filedocumented in this encounter Home Health Visit - Care Plan Visit Details Visit Type -PT Non-OASIS Dis charge Discipline -Physical Therapy Problems Problem Description Start Date Status Goals Interve ntions Physical Discomfort Disciplines: Core Disciplines Alteration in comfort 05/14/2022 Active 1 goal linked to scheduled/documen cristi intervention 1 goal intervention scheduled/documen cristi in this visit Homebound Status Disciplines: Skilled Disciplines Patient's homebound status 05/14/2022 Active 1 goal linked to scheduled/documen cristi intervention 1 goal intervention scheduled/documen cristi in this visit Monitor patient's vital signs every home health visit Disciplines: SN, PT, OT, EMPLOYMENT EVALUATOR/CASE MANAGER, SUPERVISOR GATE SERVICES, Skilled Disciplines Monitor patient's vital signs every home health visit. 05/14/2022 Active 1 goal linked to scheduled/documen cristi intervention 1 goal intervention scheduled/documen cristi in this visit Infection Prevention Disciplines: Skilled Disciplines Infection Prevention 05/14/2022 Active 1 goal linked to scheduled/documen cristi intervention 1 goal intervention scheduled/documen cristi in this visit Safety concerns Disciplines: Skilled Disciplines Alteration in safety 05/14/2022 Active 1 goal linked to scheduled/documen cristi intervention 2 goal interventions scheduled/documen cristi in this visit Wound Care Disciplines: Core Disciplines #2 Wound care needed 05/14/2022 Active 1 goal linked to scheduled/documen cristi intervention 1 goal intervention scheduled/documen cristi in this visit PT Orthopedic Disciplines: Physical Therapy Orthopedic aftercare needed due to AWILDA 05/15/2022 Active 4 goals linked to scheduled/documen cristi interventions Goals Goal Associated Problem Outcome Goal Met? Visit Notes Physical Discomfort Description: Patient will report that pain has been reduced or controlled through verbal or nonverbal means and that measures to promote comfort are effective throughout the episode of care. Physical Discomfort No Patient receives care at the most appropriate care setting Description: Patient receives care at the most appropriate care setting. Homebound Status No Measure vital signs during every home health visit during episode of care Description: Home polyethylene bag machine operator to measure vital signs during every home health visit during episode of care. Monitor patient's vital signs every home health visit No Verbalize signs of infection Description: Patient/caregiver will demonstrate knowledge of infection prevention strategies by verbalizing signs and symptoms of infection. Infection Prevention No Demonstrate use of safety precautions Description: Patient/caregiver maintains safe home environment as evidenced by remaining free from injury and demonstrates use of safety precautions. Safety concerns No Progression towards healing Description: #2 Left Hip/Trochanter Wound show progression towards healing by 06/05/22 Wound Care No Improvement with performance with gait/stairs Description: Patient able to independently ambulate functional distances in home with LRAD and improved gait pattern by 05/30/22 Patient able to ascend/descend stairs in/out of home with caregiver assist by 05/30/22 Patient able to ambulate outside of home using LRAD and caregiver assist to access transportation by 05/30/22 PT Orthopedic Completed Yes Improvement in ROM and/or strength measures Description: Patient will demonstrate improvement with L hip AROM flexion to 90 degrees, abduction to 40 degrees by 05/30/22. PT Orthopedic Completed Yes Improvement in Performance with Bed Mobility/Transfers Description: Patient able to independently perform all necessary transfers in and out of the home safely by 05/30/22 PT Orthopedic Completed Yes Performance with HEP Description: Patient/caregiver to be independent with progressed HEP by therapy discharge. PT Orthopedic Completed Yes Interventions Intervention Associated Problem/Goal Status Variance Visit Notes Instruct on pain management techniques Description: Instruct in pharmacologic and nonpharmacologic pain management techniques. Problem:Physical Discomfort Goal:Physical Discomfort Scheduled Homebound Status Description: Patient is homebound due to medical condition, unsteady gait/poor balance, fall risk and pain limiting mobility as evidenced by Recent Left Hip Arthroplasty. Problem:Homebound Status Goal:Patient receives care at the most appropriate care setting Scheduled Monitor Vital Signs Description: Monitor blood pressure, pulse, oxygen saturation, respirations Problem:Monitor patient's vital signs every home health visit Goal:Measure vital signs during every home health visit during episode of care Scheduled Educate Patient on Infection Prevention Description: Instruct patient on signs and symptoms of infection IE: fever, odor, change in color, increased amount of drainage, purulent drainage, warmth. Problem:Infection Prevention Goal:Verbalize signs of infection Scheduled Instruct Fall Prevention Description: Instruct patient/caregiver in methods to prevent falls Problem:Safety concerns Goal:Demonstrate use of safety precautions Scheduled Assess safety Description: Assess patient safety Problem:Safety concerns Goal:Demonstrate use of safety precautions Scheduled Perform dressing change Description: Perform dressing change: Site Left Hip, Skilled Nurse, Caregiver, Physical Therapy or Patient to perform dressing change as of 05/14/22, Frequency Daily and PRN for excess drainage or dislodgement of dressing. Wound care as follows: * Your incision is closed with Prineo (a clear liquid sealant and mesh) that will remain on your incision for 21 days after surgery. Leave your incision/Prineo open to air. DO NOT SCRATCH, RUB, SCRUB OR PICK AT THE PRINEO-- this could cause it to loosen or come off before your incision is healed. * You may shower after you have been discharged from the hospital, allowing the water to rinse over the Prineo and PAT to dry. * Remove mesh 21 days after surgery. At the time of Prineo removal, rub a Petroleum based ointment such as Vaseline on the entire width and length of the Prineo tape to loosen glue. Then, loosen one of the edges and slowly and gently peel it back from the incision. * If you notice the Prineo beginning to loosen or coming off, contact your surgeon's nurse for further instructions. * Do NOT submerge your incision (in a tub, hot tub, pool, george, river, etc.) until it is healed and your surgeon says it's ok. Do NOT use lotion, oil, alcohol or cream on your incision. * Change clothes and undergarments daily to help keep incision clean. Problem:Wound Care Goal:Progression towards healing Scheduled documented in this encounter Care Teams Pet Food Deboner Relationship Specialty Start Date End Date Johnnie Red MD [facility] [place] [address] PCP - General Family Medicine 02/14/20 documented as of this encounter
--- OUTSIDE RECORDS SUMMARY | 2024-06-03 08:14 | XMS_ITS | Encounter Summary ---
Author Organization [facility] Address [address] [place] [address] Phone Care Team Providers Care Teenage Program Director Name Role Phone Johnnie Red MD Primary Care Provider [phone] Reason for Referral * Diagnostic Imaging (Routine) - Closed Specialty Diagnoses / Procedures Referred By Rowdy carrillo Referred To Contact Diagnoses Orthopedic aftercare Procedures XR Hip Right 2 or 3 Views W Pelvis Claude Colbert MD [address] [place] [address] Phone: tel: fax: [address] [address] Referral ID Status Reason Start Date Expiration Date Visits Re quested Visits Authorized [id number] Closed 06/24/2020 07/24/2021 1 1 MOTIVE FIRER Reason for Visit * Reason Comments Post-op Encounter Details Date Type Department Care Team (Late st Contact Info) Description 07/08/2020 7:30 AM LOCOMOTIVE FIRER Office Visit [facility] Orth[facility] Medical Office Building [address] [place] [id number] Claude Colbert MD [address] [place] [address] Orthopedic aftercare (Primary Dx) Social History Tobacco Use Types Packs/Day Years Used Date Smoking Tobacco: Never Smokeless Tobacco: Never Alcohol Use Standard Drinks/Week Comments Yes 6 (1 standard drink = 0.6 oz pur e alcohol) Sex and Gender Information Value Date Recorded Sex Assigned at Not on file Legal Sex Male 10:40 AM CDT Gender Identity Not on file Sexual Orientation Not on file documented as of this encounter Progress Notes * Claude Colbert MD - 07/08/2020 7:30 AM CST Images from the original note were not included. POST- OPERATIVE PATIENT VISIT Arthroplasty Right Total Hip - Depuy - Right 05/23/2020 INTERIM HISTORY: Norman Lane is status post right total hip replacement. Patient seen today for routine follow up and is doing well. PHYSICAL EXAM: Right Hip Pain: minimal with activity Incision: healing with no signs of infection, induration, or drainage Range of Motion: minimal pain with gentle range of motion assessment Pulses Intact: Yes Dependent Edema: No Neurological Status Intact: Yes REVIEW OF XRAYS/STUDIES: Radiographs ordered and reviewed. Shows components are well positioned without any signs of loosening or failure. DX: Norman Lane is a 55 y.o. male status post right total hip replacement and is making appropriate progress. TREATMENT PLAN: 1. The patient has been full weight bearing. 2. Encourage exercises to strengthen core and hip muscles. 3. Meloxicam 15 mg per day for 30 days with 2 refills. FOLLOW UP: As long as the patient continues to do well then follow up for routine surveillance visits with ourNurse Practitioner/Physician Director [facility] [employer] to monitor radiograph images. Patient is welcome to come back and see me if there are any issues or problems. Claude Colbert M.D. Insurance Loss Control Surveyor MOTIVE FIRER documented in this encounter Plan of Treatment Not on file documented as of this encounter Results * XR Hip Right 2 or 3 Views W Pelvis (07/08/2020 7:43 AM LOCOMOTIVE FIRER) Anatomical Region Laterality Modality Lower Extremities, Hip, Pelvis Right C omputed Radiography 07/08/2020 7:45 AM LOCOMOTIVE FIRER Impressions 07/08/2020 7:45 AM LOCOMOTIVE FIRER Unchanged total right hip arthroplasty in near-anatomic position. Electronically signed by: Darwin Parnell M.D. Narrative 07/08/2020 7:45 AM LOCOMOTIVE FIRER EXAMINATION: XR HIP RIGHT 2 OR 3 VIEWS W PELVIS HISTORY: Right hip arthroplasty FINDINGS: AP view the pelvis excluding the top of the iliac bones and crosstable lateral view of the right hip are compared to prior study dated 05/23/2020. There is an unchanged total right hip arthroplasty in near-anatomic position. No periprosthetic lucency or fracture. 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 Procedure Note Darwin Parnell MD - 07/08/2020 EXAMINATION: XR HIP RIGHT 2 OR 3 VIEWS W PELVIS HISTORY: Right hip arthroplasty FINDINGS: AP view the pelvis excluding the top of the iliac bones and crosstable lateral view of the right hip are compared to prior study dated 05/23/2020. There is an unchanged total right hip arthroplasty in near-anatomic position. No periprosthetic lucency or fracture. 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 IMPRESSION: Unchanged total right hip arthroplasty in near-anatomic position. Electronically signed by: Darwin Parnell M.D. Claude Colbert MD IMG XR PROCEDURES Final R esult documented in this encounter Visit Diagnoses Diagnosis Orthopedic aftercare- Primary Unspecified orthopedic aftercare Orthopedic aftercare Unspecified orthopedic aftercare documented in this encounter Care Teams Teenage Program Director Relationship Specialty Start Date End Date Johnnie Red MD [facility] [place] [address] PCP - General Family Medicine 02/14/20 documented as of this encounter
--- OUTSIDE RECORDS SUMMARY | 2024-06-03 08:14 | XMS_ITS | Encounter Summary ---
Author Organization [facility] Healthcare Address [address] [place] [address] Care Team Providers Care Vibration Analyst Name Role Phone Johnnie Red MD Primary Care Provider [phone] Reason for Referral * Diagnostic Imaging (Routine) - Closed Specialty Diagnoses / Procedures Referred By Contac t Referred To Contact Diagnoses Left hip pain Procedures XR Hip Left 2 or 3 Views W Pelvis Cluade Colbert MD [address] [facility] [address] [place] [address] Phone: tel: fax: [address] [address] [place] [address] Referral ID Status Reason Start Date Expiration Date Visits Re quested Visits Authorized [id number] Closed 01/28/2022 02/27/2023 1 1 Reason for Visit * Diagnostic Imaging (Routine) - Closed Specialty Diagnoses / Procedures Referred By Contac t Referred To Contact Diagnoses Left hip pain Procedures XR Hip Left 2 or 3 Views W Pelvis Claude Colbert MD [address] [place] [address] Phone: tel: fax: [address] [address] [place] [phone] Referral ID Status Reason Start Date Expiration Date Visits Re quested Visits Authorized [id number] Closed 01/28/2022 02/27/2023 1 1 Encounter Details Date Type Department Care Team (Latest Contact Info) Description 02/04/2022 8:00 AM CDT - 02/04/2022 11:59 PM CDT Hospital Encounter [id number] [address] [facility] [address] [place] [phone] Left hip pain Discharge Disposition: Discharge to home or self [...] total) by mouth as needed for allergies ergocalciferol (VITAMIN D) 50,000 unit capsuleIndicatio ns:Vitamin [...] up to 30 doses 30 tablet 05/12/2022 pregabalin (LYRICA) 75 mg capsuleIndicatio ns:Postoperative Acute Pain Take 1 capsule (75 mg total) by mouth 2 (two) times a day for 14 days 28 capsule 05/12/2022 traMADoL (ULTRAM) 50 mg tabletIndication s:Pain Take 1 tablet (50 mg total) by mouth every 8 (eight) hours as needed for pain (1st line) 42 tablet 05/12/2022 acetaminophen (TYLENOL) 500 mg tabletIndication s:Fever,Pain Take 2 tablets (1,000 mg total) by mouth every 8 (eight) hours for 14 days 90 tablet 05/12/2022 2 mupirocin (BACTROBAN) 2 % ointmentIndicati ons:Prophylactic antibiotic Apply topically 2 (two) times a day for 5 days APPLY TO NOSTRILS TWICE A DAY FOR 5 DAYS PRIOR TO SURGERY. 22 g 02/04/2022 2 aspirin 325 mg enteric coated tabletIndication s:Deep Vein Thrombosis Prevention Take 1 tablet (325 mg total) by mouth 2 (two) times a day 84 tablet 05/23/2020 2 HYDROcodone-acet aminophen (NORCO) 5-325 mg per tabletIndication s:Pain Take 1-2 tablets by mouth every 4 (four) hours as needed for pain 56 tablet 05/23/2020 2 senna-docusate (PERICOLACE) 8.6-50 mgIndications:co nstipation Take 2 tablets by mouth 2 (two) times a day May increase to 4 tablets twice daily if needed. HOLD medication for diarrhea. 80 tablet 1 05/23/2020 2 SSD 1 % cream APPLY TWICE DAILY TO AFFECTED AREA UNTIL CLEAR 10/31/2021 2 documented as of this encounter Discharge Disposition Disposition Code Departure Means Destination Discharge to home or self care documented in this encounter Plan of Treatment Not on file documented as of this encounter Procedures Procedure Name Priority Date/Time Associated Diagnosis Comments XR HIP LEFT W PELVIS 2 OR 3 VIEWS Schedule Routine, Read Routine (OP Routine) 02/04/2022 8:13 AM CDT Left hip pain documented in this encounter Results * XR Hip Left 2 or 3 Views W Pelvis (02/04/2022 8:13 AM CDT) Anatomical Region Laterality Modality Lower Extremities, Hip, Pelvis Left C omputed Radiography 02/04/2022 8:59 AM CDT Impressions 02/04/2022 9:09 AM CDT 1. ??Moderate left hip osteoarthritis Dictated by: Maynor Govea MD The radiology attending physician has personally reviewed this study, and had reviewed and/or edited this written report and agrees with it. Electronically signed by: Barrington Veras MD Narrative 02/04/2022 9:09 AM CDT EXAMINATION: X-ray of the left hip 2 or 3 views with pelvis HISTORY: ??Left hip pain FINDINGS: AP view of the pelvis including the top of the iliac bones and cross table lateral view of the left hip are compared to 07/08/2020. ??There is moderate left hip osteoarthritis with dysplasia and coxa magna and plana which is unchanged. ??Unchanged right total hip arthroplasty is noted. Procedure Note Barrington Veras MD - 02/04/2022 EXAMINATION: X-ray of the left hip 2 or 3 views with pelvis HISTORY: Left hip pain FINDINGS: AP view of the pelvis including the top of the iliac bones and cross table lateral view of the left hip are compared to 07/08/2020. There is moderate left hip osteoarthritis with dysplasia and coxa magna and plana which is unchanged. Unchanged right total hip arthroplasty is noted. IMPRESSION: 1. Moderate left hip osteoarthritis Dictated by: Maynor Govea MD The radiology attending physician has personally reviewed this study, and had reviewed and/or edited this written report and agrees with it. Electronically signed by: Barrington Veras MD Claude Colbert MD IMG XR PROCEDURES Final R esult documented in this encounter Visit Diagnoses Diagnosis Left hip pain Pain in joint, pelvic region and thigh documented in this encounter Care Teams Vibration Analyst Relationship Specialty Start Date End Date Johnnie Red MD [address] [place] [address] PCP - General Family Medicine 02/14/20 documented as of this encounter
--- OUTSIDE RECORDS SUMMARY | 2024-06-03 08:14 | XMS_ITS | Encounter Summary ---
Author Organization [facility] Home Care Servic es Address [address] [place] [address] Phone Care Team Providers Care Photoengraving Helper Name Role Phone Johnnie Red MD Primary Care Provider [phone] Reason for Visit * Auth/Cert Specialty Diagnoses / Procedures Referred By Contac t Referred To Contact Referral ID Status Reason Start Date Expiration Date Visits Re quested Visits Authorized [id number] [phone] Encounter Details Date Type Department Care Team (Latest Contact Info) Description 05/15/2022 9:00 AM TRIM STENCIL MAKER Home Care Visit [facility] [address] [address] [address] [place] [address] Nabila Patel, PT PT INITIAL EVALUATION Social History Tobacco Use Types Packs/Day Years [...] on file documented as of this encounter Last Filed Vital Signs Vital Sign Reading Time Taken Comments Blood Pressure 126/68 05/15/2022 9:25 AM TRIM STENCIL MAKER Pulse 88 05/15/2022 9:25 AM TRIM STENCIL MAKER Temperature 35.7 ??C (96.2 ??F) 05/15/2022 9:25 AM CS T Respiratory Rate 18 05/15/2022 9:25 AM TRIM STENCIL MAKER Oxygen Saturation 95% 05/15/2022 9:25 AM TRIM STENCIL MAKER Inhaled Oxygen Concentration - - Weight - - Height - - Body Mass Index - - documented in this encounter Miscellaneous Notes * Home Health Visit Narrative - Nabila Patel, PT - 05/15/2022 9:11 AM TRIM STENCIL MAKER S: Pt is a 57yo M referred to SN, PT svcs s/p L AWILDA by Dr. Colbert on 05/12/22 B: [facility] OA, RUI, R AWILDA. Pt is WBAT L LE, on modified hip precautions for 6 weeks. [address] dressing in place for 3 weeks post-op. Pt lives w his spouse who is supportive. Pt's bedroom located on ground floor of 2 story home with basement. Home equipped w walk-in shower, pt reports has been able toshower w spouse's assist. A: Pt presents with pain, impaired mobility, dec strength and AROM L LE, fall risk, post-op precautions s/p AWILDA R: Pt will benefit from PT 2x2 weeks for transfers, gait / AD training, strengthening, steps, HEP instruction. Pt and cg are agreeable to POC. No other disciplines indicated at this time. STENCIL MAKER documented in this encounter Plan of Treatment Not on file documented as of this encounter Visit Diagnoses Not on filedocumented in this encounter Home Health Visit - Care Plan Visit Details Visit Type -PT Initial Evalu ation Discipline -Physical Therapy Problems Problem Description Start Date Status Goals Interve ntions Patient/Caregive r Total Joint Education Disciplines: Core Disciplines Patient/Carregiv er Education re: Total Joint Replacement 05/14/2022 Active 1 goal linked to scheduled/documen cristi intervention 2 goal interventions scheduled/documen cristi in this visit Physical Discomfort Disciplines: Core Disciplines Alteration in comfort 05/14/2022 Active 1 goal linked to scheduled/documen cristi intervention 1 goal intervention scheduled/documen cristi in this visit Homebound Status Disciplines: Skilled Disciplines Patient's homebound status 05/14/2022 Active 1 goal linked to scheduled/documen cristi intervention 1 goal intervention scheduled/documen cristi in this visit Monitor patient's vital signs every home health visit Disciplines: SN, PT, OT, TIME RECORDER, CONTAINER MAKER, Skilled Disciplines Monitor patient's vital signs every home health visit. 05/14/2022 Active 1 goal linked to scheduled/documen cristi intervention 1 goal intervention scheduled/documen cristi in this visit Infection Prevention Disciplines: Skilled Disciplines Infection Prevention 05/14/2022 Active 1 goal linked to scheduled/documen cristi intervention 2 goal interventions scheduled/documen cristi in this visit Safety concerns Disciplines: Skilled Disciplines Alteration in safety 05/14/2022 Active 1 goal linked to scheduled/documen cristi intervention 2 goal interventions scheduled/documen cirsti in this visit Wound Education and Management Disciplines: Core Disciplines Knowledge deficit related to wound management and risk of infection. 05/14/2022 Active 1 goal linked to scheduled/documen cristi intervention 1 goal intervention scheduled/documen cristi in this visit Wound Care Disciplines: Core Disciplines #2 Wound care needed 05/14/2022 Active 1 goal linked to scheduled/documen cristi intervention 1 goal intervention scheduled/documen cristi in this visit PT Orthopedic Disciplines: Physical Therapy Orthopedic aftercare needed due to AWILDA 05/15/2022 Active - 9 problem interventions scheduled/documen cristi in this visit Goals Goal Associated Problem Outcome Goal Met? Visit Notes Verbalize Knowledge of Joint Education Description: Patient/caregiver will verbalize knowledge of edema control, positioning, pain med management, blood clot prevention, post op diet and cryotherapy by the end of the episode of care. Patient/Caregiver Total Joint Education No Physical Discomfort Description: Patient will report that [...] visit during episode of care Description: Home sail repairer to measure vital signs during every home [...] use of safety precautions. Safety concerns No Knowledgeable of Wound Management Description: Patient/caregiver will be knowledgeable on management of wound and when to seek medical attention as evidenced by progressive wound healing and patient/caregiver ability to verbalize signs and symptoms to report to physician or Home Health Agency. Patient will remain free of infection and able to recognize signs of infection as long as alteration in skin integrity exists or until patient is discharged from home health services. Wound Education and Management No Progression towards healing Description: #2 Left Hip/Trochanter Wound show progression towards healing by 06/05/22 Wound Care No Interventions Intervention Associated Problem/Goal Status Variance Visit Notes Post-op nutritional needs Description: Assess nutritional status and instruct patient/caregiver on diet to promote incisional healing and adequate hydration. 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 Problem:Physical Discomfort Goal:Physical Discomfort Completed Homebound Status Description: Patient is homebound due to medical condition, unsteady gait/poor balance, fall risk and pain limiting mobility as evidenced by Recent Left Hip Arthroplasty. Problem:Homebound Status Goal:Patient receives care at the most appropriate care setting Completed Patient is homebound due to medical condition, unsteady gait/poor balance, fall risk and pain limiting mobility as evidenced by Recent Left Hip Arthroplasty. Monitor Vital Signs Description: Monitor blood pressure, pulse, oxygen saturation, respirations Problem:Monitor patient's vital signs every home health visit Goal:Measure vital signs during every home health visit during episode of care Completed Educate Patient on Infection Prevention Description: Instruct patient on signs and symptoms of infection IE: fever, odor, change in color, increased amount of drainage, purulent drainage, warmth. Problem:Infection Prevention Goal:Verbalize signs of infection Completed Educate Family on Infection Prevention Description: Instructed family on signs and symptoms of infection IE: fever, odor, change in color, increased amount of drainage, purulent drainage, warmth. Problem:Infection Prevention Goal:Verbalize signs of infection Completed Instruct Fall Prevention Description: Instruct patient/caregiver in methods to prevent falls Problem:Safety concerns Goal:Demonstrate use of safety precautions Completed Assess safety Description: Assess patient safety Problem:Safety concerns Goal:Demonstrate use of safety precautions Completed Educate on Wound Care Management Description: Instruct patient/caregiver on wound management including: ordered wound care, utilizing clean technique, appropriate hand hygiene, and disposal of dressings. Instruct patient/caregiver on nutrition and hydration needs for altered skin integrity, signs and symptoms of infection and/or wound deterioration to report to home health agency and or physician. Problem:Wound Education and Management Goal:Knowledgeable of Wound Management Completed Perform dressing change Description: Perform dressing change: [...] incision clean. Problem:Wound Care Goal:Progression towards healing Completed Fall Prevention/Safety Description: Instruct patient/caregiver in fall prevention/safety strategies. Problem:PT Orthopedic Completed Elimination Description: Assess elimination and instruct patient/caregiver on bowel regimen related to taking pain medication. Problem:PT Orthopedic Completed Edema Control and Correct Elevation/Positioning Description: Assess edema and instruct patient/caregiver on edema control and correct elevation/positioning of L LE Problem:PT Orthopedic Completed Home Exercise Program (HEP) Description: Instruct patient/caregiver and perform HEP. Problem:PT Orthopedic Completed Instructed pt on HEP and performed supine: Ankle pumps, Glute set and quad set with 3s hold ea, Heel slide, Hip abd/add w tactile cueing to tighten L quads, SAQ with 3s hold x 10 reps ea; SLR R LE only w tactile cueing to tighten quads x 8 reps. Pt tolerates all therex well, he reports slight inc pain 1-2/10 in L lateral hip with performing hip abd only. Pt reports pain dec to baseline 1/10 at end of session with L LE elevated. Pt has written HEP instructions from DC. Instructed pt to perform HEP 2-3x/day,. inc to 15 reps ea as able; pt verb agreement Gait/Stair Training Description: Instruct patient/caregiver and perform gait/stair training. Problem:PT Orthopedic Completed Gait train x 30 ft x 2 in home Pt has a standard walker which is not tall enough for him and not able to be adjusted. Pt and spouse state a friend has a 2WW and they will see about borrowing. Pt req constant cueing not to place walker too far in front of him and to improve upright posture; cueing to dec L step length, pt tends to exaggerate. Pt reports 1-2/10 pain in L hip w gait. Instructed pt to use walker for all gait at this time for safety and good gait pattern; instructed pt to amnbulate every 1-2 hrs in home; pt and spouse verb understanding Bed Mobility/Transfer Training Description: Instruct patient/caregiver and perform bed mobility/transfer training. Problem:PT Orthopedic Completed Sit <> stand from recliner chair with moderate assist B UE pushing up from arm rests, pt leans to his R with dec WB L LE however able to perform w SBA PT instructed pt to use walker for support in standing for safety Sit > supine pt uses B UE to assist w lifting L LE onto bed. Supine > Sitting w BUE assist to adduct L LE, with moderate difficulty Assistive Devices/DME Description: Recommend and assist with obtaining assistive devices/DME. Problem:PT Orthopedic Completed Pt has a standard walker which is not tall enough for him, PT recommended a 2WW, which pt declined at [facility]. Pt states has a friend who has one and he will seek to borrow. Cryotherapy Description: Use of cold to L hip for pain relief. Instruct patient/caregiver in use of cold to L hip x 20 minutes, with 1 hour off between applications. Problem:PT Orthopedic Completed Therapeutic Exercise Description: Perform therapeutic exercise, progressing as tolerated. Problem:PT Orthopedic Completed See HEP comments documented in this encounter Care Teams Photoengraving Helper Relationship Specialty Start Date End Date Johnnie Red MD [address] [place] [address] PCP - General Family Medicine 02/14/20 documented as of this encounter
--- OUTSIDE RECORDS SUMMARY | 2024-06-03 08:14 | XMS_ITS | Encounter Summary ---
Author Organization [facility] Healthcare Address [address] [place] [address] Care Team Providers Care [facility] Manager Name Role Phone Johnnie Red MD Primary Care Provider [phone] Encounter Details Date Type Department Care Team (Late st Contact Info) Description 04/27/2022 9:55 AM MEDICAL SUPPORT ASSISTANT Lab [facility] [id number] [place] [id number] Preoperative testing; Primary osteoarthritis of left hip Social History Tobacco Use Types Packs/Day Years Used Date Smoking Tobacco: Never Smokeless Tobacco: Never Alcohol Use Standard Drinks/Week Comments Yes 6 (1 standard drink = 0.6 oz pur e alcohol) AUDIT-C Answer Date Recorded Q1: How often do you have a drink containing alc ohol? 2-4 times a month 04/27/2022 Q2: How many drinks containi ng alcohol do you have on a typical day when you are drinking? 3 or 4 04/27/2022 Q3: How often do you have si x or more drinks on one occasion? Less than monthly 04/27/2022 Sex and Gender Information Value Date Recorded Sex Assigned at Not on file Legal Sex Male 10:40 AM CDT Gender Identity Not on file Sexual Orientation Not on file documented as of this encounter Plan of Treatment Not on file documented as of this encounter Procedures Procedure Name Priority Date/Time Associated Diagnosis Comments HC ANTIBODY SCREEN RBC Routine 04/27/2022 8:33 AM MEDICAL SUPPORT ASSISTANT Preoperative testing EGFR Routine 04/27/2022 8:33 AM MEDICAL SUPPORT ASSISTANT Primary osteoarthritis of left hip DIFFERENTIAL AUTO Routine 04/27/2022 8:3 3 AM MEDICAL SUPPORT ASSISTANT Preoperative testing CBC WITH AUTO DIFFERENTIAL Routine 04/27/2022 8:33 AM MEDICAL SUPPORT ASSISTANT Preoperative testing ABO/RH Routine 04/27/2022 8:33 AM MEDICAL SUPPORT ASSISTANT Preoperative testing VITAMIN D 25 HYDROXY Routine 04/27/2022 8:33 AM MEDICAL SUPPORT ASSISTANT Primary osteoarthritis of left hip ANTIBODY SCREEN Routine 04/27/2022 8:33 AM MEDICAL SUPPORT ASSISTANT Preoperative testing COMPREHENSIVE METABOLIC PANEL Routine 04/27/2022 8:33 AM MEDICAL SUPPORT ASSISTANT Primary osteoarthritis of left hip documented in this encounter Results * eGFR (04/27/2022 8:33 AM MEDICAL SUPPORT ASSISTANT) eGFR 104 mL/min/1. 73 m2 [facility] Comment: Interpretive Data Reference Interval Normal ?>/= 90 mL/min/1.73m2 Mildly decreased* ? 60 - 89 mL/min/1.73m2 Mildly to moderately decreased ?45 - 59 mL/min/1.73m2 Moderately to severely decreased ??30 - 44 mL/min/1.73m2 Severely decreased ?15 - 29 mL/min/1.73m2 Kidney Failure ?< 15 ??mL/min/1.73m2 *Relative to young adult level Estimated glomerular filtration rate is determined by the 2020 CKD-EPI equation recommended by the National Kidney Foundation (A Unifying Approach to GFR Estimation: Recommendations of the NKF-ASK Task Force on Reassessing the Inclusion of Race in Diagnosing Kidney Disease, JASN 2020). The CKD-EPI equation should not be used for patients with unstable renal function and has not been validated in children and those over 70. Current interpretive data was last reviewed 2021. Blood 04/27/2022 8:33 AM MEDICAL SUPPORT ASSISTANT 04/27/2022 12:02 PM MEDICAL SUPPORT ASSISTANT us Claude Colbert MD LAB BLOOD ORDERABLES Brandi menchaca Result [facility] [address] [facility]. [place] [address] * Differential, auto (04/27/2022 8:33 AM MEDICAL SUPPORT ASSISTANT) Neutrophil abs 2.3 1.7 - 6.5 K/cumm [facility] Imm gran abs 0.0 0.0 - 0.1 K/cumm [facility] Lymphocyte abs 1.4 0.8 - 3.3 K/cumm [facility] Monocyte abs 0.4 0.2 - 0.8 K/cumm [facility] Eosinophil abs 0.1 0.0 - 0.5 K/cumm [facility] Basophil abs 0.1 0.0 - 0.1 K/cumm [facility] Neutrophil pct 53.9 % [facility] Comment: Interpretive Data Percent cell count reference ranges are not reported, since discordance with absolute values may lead to misinterpretation of CBC data. Current Interpretive Data was last revised on 2017. Imm gran pct 0.5 % [facility] Comment: Interpretive Data Percent cell count reference ranges are not reported, since discordance with absolute values may lead to misinterpretation of CBC data. Current Interpretive Data was last revised on 2017. Lymphocyte pct 33.3 % [facility] Comment: Interpretive Data Percent cell count reference ranges are not reported, since discordance with absolute values may lead to misinterpretation of CBC data. Current Interpretive Data was last revised on 2017. Monocyte pct 9.0 % [facility] Comment: Interpretive Data Percent cell count reference ranges are not reported, since discordance with absolute values may lead to misinterpretation of CBC data. Current Interpretive Data was last revised on 2017. Eosinophil pct 2.1 % [facility] Comment: Interpretive Data Percent cell count reference ranges are not reported, since discordance with absolute values may lead to misinterpretation of CBC data. Current Interpretive Data was last revised on 2017. Basophil pct 1.2 % [facility] Comment: Interpretive Data Percent cell count reference ranges are not reported, since discordance with absolute values may lead to misinterpretation of CBC data. Current Interpretive Data was last revised on 2017. Blood 04/27/2022 8:33 AM MEDICAL SUPPORT ASSISTANT 04/27/2022 12:02 PM MEDICAL SUPPORT ASSISTANT Mala Wagner NP LAB BLOOD ORDERABLES Final R esult Performing Organization Address [facility] Co de Phone Number [facility] [phone] [facility] [place] [address] * Antibody screen (04/27/2022 8:33 AM MEDICAL SUPPORT ASSISTANT) Faby, indirect, Gel Interpretation Negative ABSC [facility] Blood 04/27/2022 8:33 AM MEDICAL SUPPORT ASSISTANT 04/27/2022 10:21 AM MEDICAL SUPPORT ASSISTANT Narrative MAYDAGABE NANCY - 04/27/2022 11:46 AM MEDICAL SUPPORT ASSISTANT Has the patient had Daratumumab or Isatuximab in the past 6 months?->Unknown Is this test being ordered in advance for a procedure?->Yes Expected date of procedure:->05/12/22 Has the patient been transfused in the past 3 months?->No Mala Wagner NP LAB BLOOD BANK TEST ORDERABL ES Final Result Performing Organization Address [facility] Co de Phone Number [facility] BLACK[facility] [address] [facility] [place] [address] * ABO/Rh (04/27/2022 8:33 AM MEDICAL SUPPORT ASSISTANT) ABO/Rh A Positive [facility] MAR[facility] SOFIAAnuragSOPHIE Blood 04/27/2022 8:33 AM MEDICAL SUPPORT ASSISTANT 04/27/2022 10:21 AM MEDICAL SUPPORT ASSISTANT Narrative [facility] - 04/27/2022 11:46 AM MEDICAL SUPPORT ASSISTANT Has the patient had Daratumumab or Isatuximab in the past 6 months?->Unknown Is this test being ordered in advance for a procedure?->Yes Expected date of procedure:->05/12/22 Has the patient been transfused in the past 3 months?->No Mala Wagner NP LAB BLOOD BANK TEST ORDERABL ES Final Result Performing Organization Address [facility] Co de Phone Number [facility] [phone] [address] [place] [employer] [facility] [employer] [place], [place] [id number] * (ABNORMAL) Vitamin D 25 hydroxy (04/27/2022 8:33 AM MEDICAL SUPPORT ASSISTANT) Pathologist [facility] Vitamin D 25-OH 26(L) 30 - 80 ng/mL [facility] Blood 04/27/2022 8:33 AM MEDICAL SUPPORT ASSISTANT 04/27/2022 12:02 PM MEDICAL SUPPORT ASSISTANT Claude Colbert MD LAB BLOOD ORDERABLES Brandi l Result Performing Organization Address [facility] Co de Phone Number [facility] [address] [facility] [employer] [place], [place] [id number] * (ABNORMAL) Comprehensive metabolic panel (04/27/2022 8:33 AM MEDICAL SUPPORT ASSISTANT) Pathologist [facility] Sodium 141 135 - 145 mmol/L [facility] Potassium, pl 4.5 3.3 - 4.9 mmol/L [facility] Chloride 103 97 - 110 mmol/L [facility] CO2 25 22 - 32 mmol/L [facility] Anion gap 13 2 - 15 mmol/L [facility] BUN 19 8 - 25 mg/dL [facility] Creatinine 0.76(L) 0.80 - 1.30 mg/dL [facility] Glucose 90 70 - 199 mg/dL [facility] Comment: Interpretive Data Fasting glucose >/= 126 mg/dl is diagnostic for diabetes. ?? Fasting is defined as no caloric intake for at least 8 hours. Fasting glucose between 100 mg/dl to 125 mg/dl is diagnostic of prediabetes. In a patient with classic symptoms of hyperglycemia or hyperglycemic crisis, a random glucose >/= 200 mg/dl is diagnostic for diabetes. In the absence of unequivocal hyperglycemia, results should be confirmed by repeat testing. The classification and Diagnosis of Diabetes Diabetes Care 2017;40 (Suppl. 1):S11. Current interpretive data was last revised 2017. Calcium 9.4 8.5 - 10.3 mg/dL [facility] Bilirubin, total 0.4 0.1 - 1.2 mg/dL [facility] Protein, pl 7.4 6.5 - 8.5 g/dL [facility] Albumin 4.5 3.5 - 5.0 g/dL [facility] Alk phos 75 40 - 130 Units/L [facility] ALT 44 7 - 55 Units/L [facility] AST 28 10 - 50 Units/L [facility] Comment:Hemolyzed; result ma y be falsely elevated. Blood 04/27/2022 8:33 AM MEDICAL SUPPORT ASSISTANT 04/27/2022 12:02 PM MEDICAL SUPPORT ASSISTANT us Claude Colbert MD LAB BLOOD ORDERABLES Brandi menchaca Result [facility] [address] [facility]. [place] [address] * (ABNORMAL) CBC with auto differential (04/27/2022 8:33 AM MEDICAL SUPPORT ASSISTANT) Pathologist [facility] WBC 4.2 3.8 - 9.9 K/cumm [facility] Hgb 15.1 13.0 - 17.5 g/dL [facility] Hct 47.0 38.9 - 50.3 % [facility] Plt 197 150 - 400 K/cumm [facility] MPV 11.2 9.1 - 12.3 fL [facility] RBC 4.90 4.30 - 5.80 M/cumm [facility] MCV 95.9 81.3 - 96.4 fL [facility] MCH 30.8 27.1 - 33.3 pg [facility] MCHC 32.1(L) 32.3 - 35.7 g/dL [facility] RDW CV 11.9 11.1 - 14.9 % [facility] RDW SD 41.9 35.7 - 48.1 fL [facility] NRBC abs 0.00 0.00 - 0.01 K/cumm [facility] Blood 04/27/2022 8:33 AM MEDICAL SUPPORT ASSISTANT 04/27/2022 12:02 PM MEDICAL SUPPORT ASSISTANT Mala Wagner MAINTENANCE SERVICE SUPERVISOR LAB BLOOD ORDERABLES Final R esult [facility] [address] [facility]. [place] [address] documented in this encounter Visit Diagnoses Diagnosis Preoperative testing Unspecified pre-operative examination Primary osteoarthritis of left hip documented in this encounter Care Teams Medical Center Manager Relationship Specialty Start Date End Date Johnnie Red MD [address] [place] [address] PCP - General Family Medicine 02/14/20 documented as of this encounter
--- OUTSIDE RECORDS SUMMARY | 2024-06-03 08:14 | XMS_ITS | Encounter Summary ---
Author Organization [facility] Address [address] [place] [address] Phone Care Team Providers Care Manager Transition Name Role Phone Johnnie Red MD Primary Care Provider [phone] Reason for Visit * Auth/Cert Specialty Diagnoses / Procedures Referred By Contac t Referred To Contact Referral ID Status Reason Start Date Expiration Date Visits Re quested Visits Authorized [id number] 1 022 Encounter Details Date Type Department Care Team (Late st Contact Info) Description 05/18/2022 1:45 PM FEDERAL AGENT Home Care Visit [facility] [address] [place] [address] Nabila Patel, PT PT HOME VISIT Social History Tobacco Use Types Packs/Day Years [...] Sign Reading Time Taken Comments Blood Pressure 142/62 05/18/2022 12:56 PM FEDERAL AGENT Pulse 82 05/18/2022 12:56 PM FEDERAL AGENT Temperature 35.7 ??C (96.2 ??F) 05/18/2022 12:[address] Respiratory Rate 18 05/18/2022 12:56 PM FEDERAL AGENT Oxygen Saturation 98% 05/18/2022 12:56 PM FEDERAL AGENT Inhaled Oxygen Concentration - - Weight - - Height - - Body Mass Index - - documented in this encounter Miscellaneous Notes * Home Health Visit Narrative - Nabila Patel, PT - 05/18/2022 12:50 PM FEDERAL AGENT Pt reports over the weekend he noticed hives on the back of his leg, he spoke w welcome wagon hostess MD on Sat and was advised to discontinue oxycodone and Tramadol. Hives have since resolved. Pt reports has beenalternating Tylenol and ibuprofen, and pain well controlled. Pt reports he did talk to IGLESIA Piper via inAFAR who advised pt OK to take the ibuprofen and to alternate w Tylenol. Pt instructed on supine HEP, added seated LAQ and standing therex today, and tolerates well. Plan for next visit to progress gait training, instruct on steps if weather permitting. 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 Active 1 goal linked to scheduled/documen cristi intervention 1 goal intervention scheduled/documen cristi in this visit Physical Discomfort [...] home health visit Disciplines: SN, PT, OT, PRINTER 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 Problem:Patient/home care giver Total Joint Education Goal:Verbalize Knowledge of Joint [...] clean. Problem:Wound Care Goal:Progression towards healing Completed Elimination Description: Assess elimination and instruct patient/caregiver on bowel regimen related to taking pain medication. Problem:PT Orthopedic Completed Edema Control and Correct Elevation/Positioning Description: Assess edema and instruct patient/caregiver on edema control and correct elevation/positioning of L LE Problem:PT Orthopedic Completed DVT Prevention Description: Instruct patient/caregiver in blood clot prevention, including frequent ankle pumps, frequent change of position. Problem:PT Orthopedic Completed Home Exercise Program (HEP) Description: Instruct patient/caregiver and perform HEP. Problem:PT Orthopedic Completed Instructed pt on HEP and performed supine: Ankle pumps, Glute set and quad set with 3s hold ea, Heel slide w mild tactile cueing to avoid ER of L hip, Hip abd/add w tactile cueing to tighten L quads, SAQ with 3s hold, inc to 12 reps ea; SLR R LE only w tactile cueing to tighten quads x 10 reps Instructed pt on seated L LAQ with 5s hold x 10 reps then standing w B UE support instructed on Heel raises, Toe raises, L hip abd, L hamstring curls and performed x 8-10 reps ea. Pt tolerates all therex well, he reports mild stiffness w performing L hip abd supine and standing but reports no greater than 2/10. Pt written HEP instructions updated this visit, instructed pt to perforn HEP 2-3x/day; pt verb agreement Gait/Stair Training Description: Instruct patient/caregiver and perform gait/stair training. Problem:PT Orthopedic Completed Gait train in home x 80 ft using 4WW, rollator is borrowed and slightly short for pt, pt declines PT to adjust height, states 'I'm not really pushing on it' PT instructed pt on keeping w/walker closer to improve upright posture Pt demonstrates equal step length bilat, good swing through and heel strike L LE. Pt reports pain in L hip 1-2/10 w gait. Cryotherapy Description: Use of cold to L hip for pain relief. Instruct patient/caregiver in use of cold to L hip x 20 minutes, with 1 hour off between applications. Problem:PT Orthopedic Completed Therapeutic Exercise Description: Perform therapeutic exercise, progressing as tolerated. Problem:PT Orthopedic Completed See HEP comments documented in this encounter Care Teams Manager Transition Relationship Specialty Start Date End Date Johnnie Red MD [address] [place] [address] PCP - General Family Medicine 02/14/20 documented as of this encounter
--- OUTSIDE RECORDS SUMMARY | 2024-06-03 08:14 | XMS_ITS | Encounter Summary ---
Author Organization [facility] Healthcare Address [address] [place] [address] Care Team Providers Care University Demonstrator Name Role Phone Johnnie Red MD Primary Care Provider [phone] Reason for Visit * Auth/Cert Specialty Diagnoses / Procedures Referred By Contac t Referred To Contact Diagnoses Primary osteoarthritis of left hip Primary osteoarthritis of left hip [M16.12] Procedures HI ARTHRP ACETBLR/PROX FEM PROSTC AGRFT/ALGRFT ARTHROPLASTY LEFT TOTAL HIP - DEPUY Referral ID Status Reason Start Date Expiration Date Visits Re quested Visits Authorized [id number] 1 1 Encounter Details Date Type Department Care Team (Late st Contact Info) Description 05/12/2022 7:45 AM GRIP - 05/12/2022 9:35 AM GRIP Surgery [facility] Operating Room [address] [place] [address] Claude Colbert MD [address] [facility] [address] [place], [place] [id number] ARTHROPLASTY LEFT TOTAL HIP - DEPUY Surgery Details Date/Time Status Location OR Service Patient Class Case Class Case Type Trauma Case? 05/12/2022 7:45 AM Posted [facility] OR Orthopaedics Outpatient in Bed Elective Panel 1 Procedure LRB Anes Op Region Wound Class Comments ARTHROPLASTY LEFT TOTAL HIP - DEPUY Left Spinal Hip Class I - Clean Surgeon Surgeon Role Service Panel Dwayne Vogt MD Fellow Orthopa[facility]ics 1 Claude Colbert MD Primary Orthopaedics 1 documented in this encounter Social History Tobacco Use Types Packs/Day Years [...] Sign Reading Time Taken Comments Blood Pressure 123/79 05/12/2022 9:35 AM GRIP Pulse 83 05/12/2022 9:35 AM GRIP Temperature 36.2 ??C (97.2 ??F) 05/12/2022 9:35 AM CS T Respiratory Rate 82 05/12/2022 7:30 AM GRIP Oxygen Saturation 96% 05/12/2022 9:35 AM GRIP Inhaled Oxygen Concentration - - Weight 130.2 kg (287 lb) 05/12/2022 5:20 AM GRIP Height 193 cm (6' 4 ) 05/12/2022 5:20 AM GRIP Body Mass Index 34.93 05/12/2022 5:20 AM GRIP documented in this encounter Discharge Summaries * Ruby Her, FELIX - 05/12/2022 9:11 AM CST Inpatient Discharge Summary Admitting Provider: Claude Colbert MD Discharge Provider: No att. providers found Primary Care Physician at Discharge: Johnnie Red MD [phone] Admission Date: 05/12/2022 Discharge Date: 05/13/2022 Primary Discharge Diagnosis: Primary osteoarthritis of left hip Secondary Discharge Diagnosis: Principal Problem: Primary osteoarthritis of left hip Active Problems: RUI on CPAP Class 2 obesity in adult Vitamin D deficiency Arthritis of left hip Resolved Problems: No resolved hospital problems. DETAILS OF HOSPITAL STAY Date of Admission: 05/12/2022 Date of Discharge: 05/13/2022 Procedure Performed: Left Primary Total Hip Arthroplasty Chief Complaint: Left hip pain History of Present Illness: The patient is a 57 y.o. year old male cared for by Dr. Claude Colbert. The risks, benefits, alternatives and complications of a left primary total hip arthroplasty was discussed with the patient at length prior to surgery. The patient elected to proceed with a surgical intervention given the significant influence on their quality of life. Informed consent was obtained prior to surgery. Physical Exam: On the day of discharge, the patient was afebrile with stable vital signs. Examination of the left lower extremity revealed the patient was neurovascularly intact. Incision was clean, dry and intact.Pain was adequately maintained on oral opiates. Hospital Course: The patient was admitted on 05/12/2022 and underwent a left primary total hip arthroplasty. The patient tolerated the procedure well and was taken in stable condition to the postoperative recovery room.. The patient progressed well and was able to be weaned off IV opiates. The patient participated with physical and occupational therapy and was deemed stable for discharge. He was maintained on Aspirin for deep venous thrombosis prophylaxis. Pain was adequately maintained on oral opiates. The patient was discharged in stable condition to home with home health care on 05/13/2022. Discharge Medications: Your medication list START taking these medications Instructions Last Dose Given Next Dose Due acetaminophen 500 mg tablet Commonly known as: TYLENOL Take 2 tablets (1,000 mg total) by mouth every 8 (eight) hours for 14 days aspirin 81 mg enteric coated tablet Take 1 tablet (81 mg total) by mouth 2 (two) times a day ergocalciferol 50,000 unit capsule Commonly known as: VITAMIN D Take 1 capsule (50,000 Units total) by mouth once a week meloxicam 15 mg tablet Commonly known as: MOBIC Take 1 tablet (15 mg total) by mouth daily oxyCODONE 5 mg immediate release tablet Commonly known as: ROXICODONE Take 1 tablet (5 mg total) by mouth every 4 (four) hours as needed for pain for up to 30 doses pregabalin 75 mg capsule Commonly known as: LYRICA Take 1 capsule (75 mg total) by mouth 2 (two) times a day for 14 days traMADoL 50 mg tablet Commonly known as: ULTRAM Take 1 tablet (50 mg total) by mouth every 8 (eight) hours as needed for pain (1st line) CONTINUE taking these medications Instructions Last Dose Given Next Dose Due celecoxib 200 mg capsule Commonly known as: CeleBREX cetirizine 10 mg tablet Commonly known as: ZyrTEC mometasone 50 mcg/actuation nasal spray Commonly known as: NASONEX STOP taking these medications naproxen 375 mg tablet Commonly known as: NAPROSYN Where to Get Your Medications These medications were sent to [facility] - [place], [place] - [address] [facility] [address] [facility] [address] acetaminophen 500 mg tablet aspirin 81 mg enteric coated tablet ergocalciferol 50,000 unit capsule meloxicam 15 mg tablet oxyCODONE 5 mg immediate release tablet pregabalin 75 mg capsule traMADoL 50 mg tablet Discharge Activity: Weight bearing: Weight bearing as tolerated left lower extremity Assistive Devices: Walker or crutches for all walking Hip Precautions: Modified Hip Precautions for 6 weeks DVT prophylaxis: Aspirin 81mg twice daily for 30 days Discharge Diet: Resume previous diet Follow-up: Jun 10, 2022 8:50 AM Return with Claude Colbert MD [facility] Orthopaedic Surgery ( ORTHOPEDIC SURGERY) [address] [place] [address] Medical Office Building [address] [address] Condition on Discharge: Stable Cosigned by Claude Colbert MD at 05/13/2022 4:44 PM GRIP documented in this encounter Discharge Instructions * Discharge Instructions* Marie Mack RN - 05/12/2022 9:08 AM GRIP Images from the original note were not included. You have received anesthesia, therefore, for the next 24 hours and/or while taking narcotic pain medication; -Do NOT drive a vehicle -Do NOT drink alcohol -Do NOT make important personal or business decisions or sign legal documents. Examples of narcotic pain medication include Percocet, Oxycontin, Laverne, Hydrocodone, and Oxycodone. FAQs (frequently asked questions) about Surgical Site Infections What is a Surgical Site Infection (SSI)? A surgical site infection is and infection that occurs after surgery in the part of the body where the surgery took place. Most patients who have surgery do not develop an infection. However, infections develop in about 1 to 3 out of every 100 patients who have surgery. Some of the common symptoms fo a surgical site infection are: Redness and pain around the area where you had surgery Drainage of cloudy fluid from your surgical wound Fever Can SSIs be treated? Yes. Most surgical site infections can be treated with antibiotics. The antibiotic given to you depends on the bacteria (germs) causing the infection. Sometimes patients with SSIs causing the infection. Sometimes patients with SSIs also need another surgery to treat the infection. What are some of the things that hospitals are doing to prevent SSIs? To prevent SSIs, doctors, nurses, and other healthcare providers: Clean their hands and arms up to their elbows with an antiseptic agent just before the surgery. Clean their hands with soap and water or an alcohol-based hand rub before and after caring for eachpatient. May remove some of your hair immediately before your surgery using electric clippers if the hair isin the same area where the procedure will occur. They should not shave you with a razor. Wear special hair covers, masks, gowns, and gloves during surgery to keep the surgery area clean. Give you antibiotics before your surgery starts. In most cases, you should get antibiotics within 60 minutes before the surgery starts and the antibiotics should be stopped within 24 hours after surgery. Clean the skin at the site of your surgery with a special soap that kills germs. What can I do to help prevent SSIs? Before your surgery: Tell your doctor about other medical problems you may have. Health problems such as allergies, diabetes, and obesity could affect your surgery and your treatment. Quit smoking. Patients who smoke get more infections. Talk to your doctor about how you can quit before your surgery. Do not shave near where you will have surgery. Shaving with a razor can irritate your skin and makeit easier to develop an infection. At the time of your surgery: Speak up if someone tries to shave you with a razor before surgery. Ask why you need to be shaved and talk with your surgeon if you have any concerns. Ask if you will get antibiotics before surgery. After your surgery: Make sure that your healthcare providers clean their hands before examining you, either with soap and water or an alcohol-based hand rub. If you do not see you providers clean their hands, please ask them to do so. Family and friends who visit you should not touch the surgical wound or dressings. Family and friends should clean their hands with soap and water or an alcohol- based hand rub beforeand after visiting You. If you do not see them clean their hands, ask them to clean their hands. What do I need to do when I go home from the hospital? Before you go home, your doctor or nurse should explain everything you need to know about taking care of your wound. Make sure you understand how to care for your wound before you leave the hospital. Always clean your hands before and after caring for your wound. Before you go home, make sure you know who to contact if you have questions or problems after you get home. If you have any symptoms of an infection, such as a redness and pain at the surgery site, drainage,or fever, call your doctor immediately. If you have additional questions, please ask your doctor or nurse. Safety Tips for Preventing Falls at Home Falls happen at home for many reasons. Here are several things that are known to add to your risk of falling: Poor vision or hearing History of falls Use of an assistive device, such as a cane or walker Poor nutrition Certain medications Multiple medications Being older than 65 years of age Conditions in the home, such as slippery floors, loose rugs, cords on the floor If you answer ???yes?? to any of the following questions, please consider discussing your risk of falling with your primary care practitioner: Have you fallen in the last year? Do you feel unsteady when standing or walking? Do you have a fear of falling? If your primary care practitioner recommends physical therapy, we are available to assist: [facility] [phone] [phone] [facility] [phone] How are some things that you can do that will lower your risk for falls at home: Arrange furniture to prevent tripping or bumping into it. Keep a light on in the bedroom & bathroom to help you see at night. Have your doctor or pharmacist review your medications. Remove things that you can trip over like phone cords, rugs & footstools. Wear sturdy non-skid slippers or shoes with flat or low heels Use handrails when going up & down stairs. Take one step at a time. Begin a regular exercise program When getting up, sit on the edge of the bed/chair for a few minutes before standing. Sit & stand up slowly. Avoid tilting your head back. Watch out for sidewalks & curbs that are not even. Replace worn walker, cane & crutch tips. Disclaimer: This material provides general information only. It should not be used in place of the advice, instructions, or treatment given by your doctor or other health medical care manager. * Discharge Instr - Other Orders* Joseline Kessler RN - 05/12/2022 6:41 AM GRIP HOME CARE PROVIDER: [facility] WILL PROVIDE RN & PT SERVICES UPON DISCHARGE. PT CAN CALL [phone] FOR ANY HOME CARE QUESTIONS OR CONCERNS. THE HOME CARE PROVIDER WILL CALL YOU WITHIN 48 HOURS OF HOSPITAL DISCHARGE. documented in this encounter Medications at Time of Discharge [...] for 14 days 90 tablet 05/12/2022 2 documented as of this encounter Ordered Prescriptions Prescription Sig Dispense Quantity Refills Last Filled Start Date End Date ergocalciferol (VITAMIN D) 50,000 unit capsuleIndications :Vitamin D Deficiency Take 1 capsule (50,000 Units total) by mouth once a week 10 capsule 05/12/2022 aspirin 81 mg enteric coated tabletIndications: prevention of thrombosis Take 1 tablet (81 mg total) by mouth 2 (two) times a day 60 tablet 05/12/2022 meloxicam (MOBIC) 15 mg tabletIndications: Osteoarthritis Take 1 tablet (15 mg total) by mouth daily 30 tablet 05/12/2022 oxyCODONE (ROXICODONE) 5 mg immediate release tabletIndications: Pain Take 1 tablet (5 mg total) by mouth every 4 (four) hours as needed for pain for up to 30 doses 30 tablet 05/12/2022 pregabalin (LYRICA) 75 mg capsuleIndications :Postoperative Acute Pain Take 1 capsule (75 mg total) by mouth 2 (two) times a day for 14 days 28 capsule 05/12/2022 traMADoL (ULTRAM) 50 mg tabletIndications: Pain Take 1 tablet (50 mg total) by mouth every 8 (eight) hours as needed for pain (1st line) 42 tablet 05/12/2022 acetaminophen (TYLENOL) 500 mg tabletIndications: Fever,Pain Take 2 tablets (1,000 mg total) by mouth every 8 (eight) hours for 14 days 90 tablet 05/12/2022 2 documented in this encounter Discharge Disposition Disposition Code Departure Means Destination Discharge to home or self care documented in this encounter Progress Notes * Lori Cutler RN - 05/12/2022 12:50 PM CST 05/12/22 1512 Discharge Summary Chart reviewed For Medical Necessity Does patient have a planned readmission to hospital planned? No Discharge Disposition Private residence Equipment/Provider Needs Home Provider Services Needs Identified Home Care Agency Information Home Care Agency Type #1: Physical Therapy Home Care Agency Name [facility] Home Care Agency Home Care Agency Contact Spoken to JOHNATHAN Discharge Additional Assistance Does the patient need discharge transport arranged? No Post Discharge Care Provider Post Discharge Care Plan Next level of care provider has access to complete EMR * Joseline Kessler RN - 05/12/2022 6:43 AM CST 05/12/22 0642 Information Information Obtained From Patient Referral Data Referral Source Physician Referral Reason Discharge Planning Prior to Admission Primary Caregiver Self Support System Spouse/Significant Other Support system contact info (name, phone, availablity) Hannah Lane [phone] Home Care Services Yes Type of Home Care Services Home therapies;Nurse visit Home care service name and phone number HOME HEALTH: [facility] [phone] Durable Medical Equipment Walker (wheeled) Living Arrangements Spouse/significant other Type of Residence Private residence * Joseline Kessler RN - 05/12/2022 6:42 AM CST 05/12/22 0642 Communications Patient choice (Home Health/Hospice) list given to patient/business process representative? Yes No HH preference. * Julia Stevens RPh - 05/12/2022 6:21 AM CST Patient weight = 130.2 kg Change cefazolin dose to 3000 mg per pharmacy dosing protocol. Pre-Operative Cefazolin Dosing Cefazolin Indication Patient Weight Dose Surgical Prophylaxis, Preoperative <120 kg 2000 mg >/= 120 kg 3000 mg References: 2016 ASHP/IDSA/SIS/MORENO Guidelines for Antimicrobial Prophylaxis in Surgery [facility] Toolbook/Dorsata, last reviewed 05/10/18 Approved by ASP 06/09/18, Approved by [employer] 07/07/18, Approved by [facility] 07/20/18 documented in this encounter H&P Notes * Claude Colbert MD - 05/12/2022 7:13 AM CST I have reviewed the H&P, examined the patient, and endorse the findings as written. Plan of Care : Based on the above findings, I consider Norman Lane to be an acceptable risk for : Procedure(s): ARTHROPLASTY LEFT TOTAL HIP - DEPUY Source Note - Jeb Frye MD - 04/27/2022 7:38 AM GRIP Images from the original note were not included. Center for Preoperative Assessment and Planning Preoperative Evaluation Record Evaluation type/location: [facility] Planned procedure site: [facility] OR Date: 04/27/[address] is a 57 y.o. male Procedure(s): ARTHROPLASTY LEFT TOTAL HIP - DEPUY Pre-Op Diagnosis Codes: * Primary osteoarthritis of left hip [M16.12] HISTORY HPI Norman Lane is a 57 year old male who is being evaluated prior to undergoing arthroplasty left totalhip for primary OA. ?? Past Medical History Information obtained from: patient and chart. Neurological Pertinent negatives: seizures; neuromuscular disease; CVA/stroke; TIA; CEA; ICA stenosis; dementia/mild cognitive impairment and carotid artery stent Cardiovascular Pertinent negatives: hypertension ; CAD ; [place] ; CABG ; valvular heart disease; valve replacement; atrial fibrillation; arrhythmia; pacemaker/ICD; PVD; DVT/PE; negative for CHF; drug-eluting stent(s); bare metal stent(s); coronary angioplasty and hyperlipidemia Respiratory + Sleep apnea (RUI) Prescribed device: CPAP and PAP compliant. Pertinent negatives: COPD; asthma; pulmonary hypertension; no O2 use outside the hospital and non-smoker Hepatic / Heme Pertinent negatives: liver disease; history of anemia; history of thrombocytopenia and history of Faby positive Gastrointestinal Pertinent negatives: GERD and hiatal hernia Renal / Pertinent negatives: renal disease; dialysis and nephrolithiasis Musculoskeletal/Pain + Chronic pain (left hip) + Osteoarthritis Pertinent negatives: chronic opioid use and previous treatment for opioid use disorder Endocrine / Other + Obesity (BMI >30) (BMI 35.54) Pertinent negatives: diabetes mellitus; thyroid disease; cancer history; rheumatological disease; transplanted organ and infectious disease Functional Capacity Functional capacity: 4-6 METs Comments: Able to climb 2 flights of stairs and walk 4 level blocks without chest pain or shortnessof breath Able to lie flat and breathe easily Review of Systems + chronic pain (left hip) + vision loss (wears glasses) Pertinent negatives: productive cough; wheezing; SOB; recent cold/flu; fever; chest pain; palpitations; orthopnea; pedal edema; PND; Sickle Cell disease/trait; previous transfusion; melena/hematochezia; easy bruising; bleeding problems; syncope; dizziness; muscle weakness; numbness/tingling; hard of hearing; heartburn; nausea; dysphagia; diarrhea; dentures/partials; chipped/loose teeth; abdominalpain; diaphoresis and no unexpected weight change Comments: Allergic rhinitis stable on meds PAT Summary and Plans Cardiac risk classification of planned procedure: intermediate cardiac risk. Preoperative assessment status: complete pending laboratory results. Additional comments: Norman Lane is a 57 y.o. male who is being evaluated prior to undergoing an intermediate cardiac risk surgery. Revised Cardiac Risk Index factors are (none) for a total RCRI of 0 out of 6. Functional capacity is 4-6 METs. Obstructive sleep apnea (RUI) screening status is HIGH RISK due to known RUI RUI orders placed. Blood bank needs for day of procedure: Type and Screen only Pending labs/tests include: CBC CMP T&S Vitamin D DOS T&S ordered. Preoperative evaluation performed by Mala Wagner NP on 04/27/22 at 7:46 AM. . Follow up note Labs reviewed and are significant for: Vitamin D 26 - ordered by and to be managed by surgeon's office. Surgeon's office reviews laboratory results independently, including final results of surgeon ordered labs. CPAP process complete. Follow-up completed by: Shruthi Hernández NP on 04/28/22 at 9:13 AM Patient Active Problem List Diagnosis ??? Primary osteoarthritis of right hip ??? RUI on CPAP ??? Class 2 obesity in adult ??? Primary osteoarthritis of left hip Past Medical History: Diagnosis Date ??? Allergic rhinitis ??? Osteoarthritis ??? Sleep apnea cpap Past Surgical History: Procedure Laterality Date ??? COLONOSCOPY No Known Allergies Med List Status: Nurse Complete Set By: Tamiko Alcala RN at 04/27/2022 7:56 AM Taking? Last Dose Start Date End Date Provider celecoxib (CeleBREX) 200 mg capsule -- 05/23/20 -- Bruna Robledo NP cetirizine (ZyrTEC) 10 mg tablet Past Week -- -- Ruth Ann Griffiths MD mometasone (NASONEX) 50 mcg/actuation nasal spray Past Week -- -- Ruth Ann Griffiths MD naproxen (NAPROSYN) 375 mg tablet 04/27/2022 -- -- Ruth Ann Griffiths MD -- -- Patient not taking: -- Patient not taking: -- Current Outpatient Medications: ??? celecoxib (CeleBREX) 200 mg capsule ??? cetirizine (ZyrTEC) 10 mg tablet ??? mometasone (NASONEX) 50 mcg/actuation nasal spray ??? naproxen (NAPROSYN) 375 mg tablet Social History Tobacco Use Smoking Status Never Smokeless Tobacco Never Alcohol Use: Heavy Drinker ??? Frequency of Alcohol Consumption: 2-4 times a month ??? Average Number of Drinks: 3 or 4 ??? Frequency of Binge Drinking: Less than monthly Substance and Sexual Activity Drug Use Yes ??? Types: Alcohol Family History Problem Relation Age of Onset ??? Coronary artery disease Father ??? Anesthesia problems Neg Hx PAT Physical Exam Airway Exam: Mallampati: II Cervical ROM: FROM TM distance: 3.5 Upper lip bite test class: 1 Cardiovascular Exam: Rate: regular Rhythm: regular Negative for Murmur Negative for peripheral edema Pulmonary Exam: LCTA, bilat EENT Exam: trachea midline Dental Exam: Appears intact Skin Exam: Skin is warm. Abdominal exam: Abdomen is soft. Bowel sounds are present. Current state: Patient's current state is cooperative and interactive. Vitals: 04/27/22 0800 04/27/22 0804 BP: 149/88 155/77 Pulse: 72 Resp: 20 SpO2: 96% PT: No results found for requested labs within last 720 hours. INR: No results found for requested labs within last 720 hours. APTT: No results found for requested labs within last 720 hours. Hgb A1C: No results found for requested labs within last 720 hours. CBC RBC: No results found for requested labs within last 720 hours. RDW: No results found for requested labs within last 720 hours. MCHC: No results found for requested labs within last 720 hours. MCH: No results found for requested labs within last 720 hours. MCV: No results found for requested labs within last 720 hours. Hct: No results found for requested labs within last 720 hours. Hgb: No results found for requested labs within last 720 hours. WBC: No results found for requested labs within last 720 hours. MPV: No results found for requested labs within last 720 hours. Platelets: No results found for requested labs within last 720 hours. RDW CV: No results found for requested labs within last 720 hours. RDW Sd: No results found for requested labs within last 720 hours. BMP Glucose: No results found for requested labs within last 720 hours. Calcium: No results found for requested labs within last 720 hours. Sodium: No results found for requested labs within last 720 hours. Potassium: No results found for requested labs within last 720 hours. CO2: No results found for requested labs within last 720 hours. Chloride: No results found for requested labs within last 720 hours. BUN: No results found for requested labs within last 720 hours. Creatinine: No results found for requested labs within last 720 hours. Lillian index score: 100 DOS Physical Exam Medical history, medications, and allergies reviewed. Attestation: This PAT evaluation 05/12/2022. Airway Exam: Mallampati: II Cervical ROM: FROM TM distance: 3 Cardiovascular Exam: Rate: regular Rhythm: regular Pulmonary Exam: LCTA, bilat Dental Exam: Appears intact Anesthesia Plan ASA 2 My patient is approved for the Anesthesia Controlled Medication protocol when under care of a SCHOOL TREASURER Planned anesthesia: Regional as primary anesthetic and spinal Informed Consent: Anesthesia plan and risks discussed with patient. Plan and Consent Comments: Risks of spinal anesthesia discussed including infection, bleeding, nerve injury/paralysis, backache, PDPH as well as ineffective/patchy spinal effect (with potential conversion to general anesthesia) Consent and Attending signature: I and/or my designee have discussed the anesthesia plan, benefits, possible alternatives, parental presence at time of induction (if indicated), and clinically relevant risks that may include dental injury, unintentional awareness, and/or other complications. The patient and/or parent/legal guardian understand, and agree to proceed. All questions answered. documented in this encounter Consult Notes * Michelle Charles OT - 05/12/2022 11:43 AM CST [facility] Occupational Therapy Evaluation Patient Name: Norman Lane Date of Service: 05/12/2022 Date of : 1965 Age: 57 y.o.male Room: [facility] OR/- Admit Date: 05/12/2022 Attending Provider: No att. providers found Primary Diagnosis: Primary osteoarthritis of left hip Subjective HPI: Norman Lane is a 57 y.o. male s/p left total hip replacement on 05/12/2022. Past Medical History: Diagnosis Date Allergic rhinitis Osteoarthritis Sleep apnea cpap Past Surgical History: Procedure Laterality Date COLONOSCOPY HIP ARTHROPLASTY Right Precautions: modified posterior hip precautions Weightbearing Status: Weightbearing as tolerated (WBAT) on left LE Occupational Therapy Goal: Return to daily life, grand kids sitting on lap, return to work Patient Comment: This is way better than the last time referring to the posterior hip precautionshe followed with his last hip replacement. 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 Fall within the last 6 months: No Objective Vitals: Blood pressure: 145/75 mmHg, Heart rate: 75 bpm, SPO2: 94% on room air Comments: Long-sitting in bed Pain Assessment: Pre-therapy pain: Post-therapy pain: Location: General discomfort Pain Intervention: cold applied, rest , and RN notified Cognition: Overall Cognitive Status: WFL to complete therapy related tasks Arousal: Alert Orientation: Oriented x4 (person, place, time, and situation) Following Commands: Follows all commands and directions without difficulty Safety Judgement: Good awareness of safety precautions Problem Solving: Able to problem solve independently Behavior: Easy to engage Formal Cognitive Assessment Indicated: None indicated at this time RUE Assessment: Within functional limits LUE Assessment: Within functional limits Coordination Fine Motor: WFL Mid-Line Orientation: WFL Balance Dynamic Sitting Balance Grade: Good+ (maintains balance against maximal challenges, no external support) Dynamic Standing Balance Grade: Good (maintains balance against moderate challenges, no external support) Activity Tolerance tolerates 30+ minutes of activity without fatigue Activities of Daily Living Grooming: Patient completed grooming standing at sink with supervision/touching assistance for safety, increased time, and appropriate use of wheeled walker , patient participated in wash/dry hands. Upper Body Dressing: Patient completed upper body dressing sitting edge of bed with set up/clean up assistance, patient participated in threading RUE, threading LUE, pulling overhead, and pulling down in back . Lower Body Dressing: Patient completed lower body dressing sitting edge of bed with supervision/touching assistance for safety, use of adaptive equipment, and increased time to complete, patient participated in donning/doffing right shoe, donning/doffing left shoe, donning/doffing right sock, donning/doffing left sock,threading RLE into underwear, threading LLE into underwear, threading RLE into pants, threading LLEinto pants, pulling underwear up over hips , and pulling pants up over hips . Toileting: Patient completed toileting seated on toilet in bathroom with supervision/touching assistance for safety and increased time to complete, patient participated in bed tran/urinal set up . Functional Mobility Functional Transfers: Patient performed sit to and from stand with supervision/touching assistance. Patient required cuesfor hand placement and general safety . Toilet Transfers: Patient performed comfort height toilet transfer using grab bar to simulate vanity with supervision/touching assistance for safety. Shower Transfers: Patient performed shower transfer using wheeled walker to standing with supervision/touching assistance for safety. Functional Ambulation: Patient ambulates 20 feet with wheeled walker and supervision/touching assistance for safety to simulate home ambulation. *Gait belt used for all OOB mobility* Patient is able to recall 3 out of 3 modified posterior hip precautions with minimal verbal cueing. Assessment Patient was willing to participate in OT and completed toileting, dressing, and shower transfer. Patient's was present for the entirety of the session. Patient needed minimal cueing for proper walker use, but otherwise demonstrated an ability to safely complete functional activity while maintaining precautions. Given patient's performance on this date, he is safe to return home with intermittent assistance from family. Brief review of medical and therapy records pertaining to current functional performance was obtained for this patient. Low complexity decision making was necessary for analysis of occupational profile, analysis of data, and consideration of treatment options. Minimal to no modification and assistance was needed for patient to complete all evaluation components. Prognosis:Excellent Response to today's treatment: Excellent Completed patient handoff and notified RN of patient's location and functional status upon completion of session. Education: Patient and spouse has been educated on the role of OT, safety, and precautions. Education completed via explanation and handout . Patient and spouse verbalized understanding and demonstrated understanding. Handouts Issued: Modified posterior hip precautions Care Plan Goals established: 05/12/22 Goals to be completed by: 05/14/2022 The patient will perform lower body dressing with supervision/touching assistance in order to safely return home , increase safety/increase independence, and decrease burden of care for caregivers bythe above completion date. Comments: Met, 05/12/2022 The patient will perform toileting with supervision/touching assistance in order to safely return home , increase safety/increase independence, and decrease burden of care for caregivers by the abovecompletion date. Comments: Met, 05/12/2022 The patient will perform toilet transfer with supervision/touching assistance in order to safely return home , increase safety/increase independence, and decrease burden of care for caregivers by theabove completion date. Comments: Met, 05/12/2022 The patient will perform walk-in shower transfer with supervision/touching assistance in order to safely return home , increase safety/increase independence, and decrease burden of care for caregivers by the above completion date. Comments: Met, 05/12/2022 The patient will recall modified posterior hip precautions with minimal cueing in order to safely return home , increase safety/increase independence, decrease burden of care for caregivers, and ensure patient maintains precautions by the above completion date. Comments: Met, 05/12/2022 Plan Treatment frequency: Discharge from this Service Recommended equipment to safely discharge: Wheeled walker, Shower chair Comments: patient has recommended items. Referrals Recommended: None. Patient okay to discharge home: Yes Discharge Recommendation: Home with family, Home with intermittent assist Discharge destination and transportation depends not only upon the therapists??? recommendations, but also on insurance authorization, bed availability, acceptance to the facility, medical diagnosis,and any other specialized needs. Case Management and/or Social Work will work with the patient and their interdisciplinary team to determine the most appropriate discharge disposition. Michelle Charles OT * Alma Delia Alvarez, PT - 05/12/2022 10:35 AM CST [facility] Physical Therapy Initial Evaluation Patient Name: Norman Lane Date of Service: 05/12/2022 Date of : 1965 Age: 57 y.o. male Room: [facility] OR/- Admit Date: 05/12/2022 Attending Provider: Claude Colbert MD Primary Diagnosis: Primary osteoarthritis of left hip Subjective HPI: Norman Lane is a 57 y.o. male s/p left total hip arthroplasty on 05/[address] Colbert. Patientis agreeable to physical therapy evaluation. Past Medical History: Diagnosis Date Allergic rhinitis Osteoarthritis Sleep apnea cpap Past Surgical History: Procedure Laterality Date COLONOSCOPY HIP ARTHROPLASTY Right Precautions: fall risk and modified posterior hip Weightbearing Status: Weightbearing as tolerated (WBAT) on left Lower Extremity Physical Therapy Goal: Patient would like to return home. Patient Comment: Patient is supine in bed upon arrival of physical therapist. Patient's is present bedside. 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 Pain Assessment: Pre-evaluation pain: 10 Post-evaluation pain: 10 Location: Left hip Pain intervention: Patient received pain medication prior to physical therapy treatment, Cold applied, Repositioned, Ambulation, Exercise, Physical therapy, and RN notified Cognition: Overall Cognitive Status: WFL to complete therapy related tasks Lower Extremity Assessment: Right lower extremity strength and range of motion grossly assessed to be within functional limits based on observation of patient's ability to perform functional mobility with supervision/touching assist. Did not formally test due to recent surgery. Bed Mobility: Patient performs supine to and from edge of bed with supervision/touching assistance. Cues given for sequencing. Transfers: Patient performs sit to and from stand with wheeled walker and supervision/touching assistance. Cues given for upper extremity placement. Patient relies on upper extremities for force production. Gait: Patient ambulates x 75 feet with wheeled walker and supervision/touching assistance. Supervision given for safety. Patient ambulates with decreased cole and decreased step length. Stairs: Patient negotiates 2 stairs with 1 hand railing and supervision/touching assistance. Cues given forlower extremity sequencing. Gait belt was used for all out of bed mobility. Therapeutic Exercise: Ankle Pumps 1x10 Glute Set 1x10 Short-Arc Quads 1x10 Heel Slides 1x10 Hip Abduction (supine with slide board) 1x10 Comments: Performed per [facility] AWILDA protocol. Balance Dynamic Standing Balance Support: bilateral upper extremities with wheeled walker Grade: Fair+ (maintains balance against minimal challenges, with support) Assessment Physical Therapy Diagnosis: Impaired joint mobility, motor function, muscle performance, and range of motion associated with joint arthroplasty Prognosis: Good Response to today???s treatment: Good Completed patient handoff and notified RN of patient???s location and functional status upon completion of session. Patient tolerates physical therapy evaluation well. Patient performs all mobility training necessary to discharge home. Patient is supine in bed upon end of session, with call light in reach. Patient's clinical presentation is stable and the patient's clinical course is expected to progress in a typical manner. Education: Patient and family has been educated on the role of physical therapy, safety, precautions, mobility training, stairs, and home exercise program. Education completed via explanation, teach back, demonstration, and handout . Patient and family verbalized understanding and demonstrated understanding. [facility]outs [facility] HE[facility] and Modified posterior hip precautions Patient at high risk for: Injury at home as patient has not returned to prior level of function Care Plan Goals established: 05/12/22 Goals to be completed by: 05/14/2022 The patient will perform bed mobility including supine to/from sit with supervision/touching assistance in order to safely return home by the above completion date. Comments: Completed The patient will perform sit to/from stand transfers using wheeled walker and supervision/touching assistance in order to safely return home by the above completion date. Comments: Completed The patient will ambulate 75 feet using wheeled walker and supervision/touching assistance in orderto safely return home by the above completion date. Comments: Completed The patient will ascend/descend 2 stairs with 1 handrail and partial/moderate assistance in order to safely return home by the above completion date. Comments: Completed The patient will perform HEP appropriately per protocol with assistance from joint motorcoach driver as needed in order to increase strength/increase endurance by the above completion date. Comments: Completed The patient will recall modified posterior hip precautions with cueing from joint motorcoach driver in order toensure patient maintains precautions by the above completion date. Comments: Completed Plan Physical therapy frequency: One time visit (Discharge from this service) If this is the last note, consider this the discharge summary Recommended equipment to safely discharge: Wheeled walker (already owns) Recommended method of transportation at discharge: Personal vehicle with family Referrals Recommended: None Patient okay to discharge: Yes Discharge Recommendation: Home with family, Home with intermittent assist, Home Health PT Discharge destination and transportation depends not only upon the therapists??? recommendations, but also on insurance authorization, bed availability, acceptance to the facility, medical diagnosis,and any other specialized needs. Case Management and/or Social Work will work with the patient and their interdisciplinary team to determine the most appropriate discharge disposition. Alma Delia Alvarez, PT documented in this encounter Miscellaneous Notes * Perioperative Nursing Note - Marie Mack RN - 05/12/2022 12:40 PM CST Pt has progressed well, VSS, denies nausea, taking po well, and then pain pills earlier. Now after therapy rating pain 1-2/10, tolerable. at bedside, all discharge/ AVS information reviewed and both verbalize an understanding. CASTING FINISHER, Case mgmt, PT and OT and Anesthesia, all to see pt and give clearance for discharge. * Plan of Care - Johnathan Magaña RN - 05/12/2022 8:24 AM CST [facility] Home Health consult received. [facility] Home Care agency accepted patient with projected start of care within 48 hours of completed referral and discharge. Jimena DUNN, notified. * Op Note - Claude Colbert MD - 05/12/2022 7:56 AM CST Operative Report SURGEON: Claude Colbert MD SURGICAL TEAM: Surgeon(s) and Role: * Claude Colbert MD - Primary * Dwayne Vogt MD - Fellow DATE OF SURGERY : 05/12/2022 PREOPERATIVE DIAGNOSIS: Pre-op Diagnosis * Primary osteoarthritis of left hip [M16.12] POSTOPERATIVE DIAGNOSIS: Post-op Diagnosis * Primary osteoarthritis of left hip [M16.12] PROCEDURE: Procedure(s): ARTHROPLASTY LEFT TOTAL HIP - DEPUY (Left) ANESTHESIA: Spinal IMPLANTS: Implant Name Type Inv. Item Serial No. Landfill Attendant Lot No. LRB No. Used Action [employer] CUP 55MM ACETABULAR BI MENTUM FEMORAL PROXIMAL PRESS FIT [id number] - [id number] [employer] CUP 55MM ACETABULAR BI MENTUM FEMORAL PROXIMAL PRESS FIT [id number] [employer] [id number] Left 1 Implanted [employer] LINER ACET HIP SIZE 28 POLY BI MENTUM ALTRX 55MM [id number] - [id number] [employer] LINER ACET HIP SIZE 28 POLY BI MENTUM ALTRX 55MM [id number] [employer] [id number] Left 1 Implanted [employer] ACTIS L111 MM COLLAR HIP 8 HIGH OFFSET STEM FEMORAL [id number] - [id number] [employer] Actis L111 Mm Collar Hip 8 High Offset Stem Femoral [id number] [employer] [id number] Left 1 Implanted [employer] ARTICUL/NNAMDI 28MM CEMENTLESS HIP +1.5MM 12/14 TAPER HEAD FEMORAL LATEX FREE [id number] - [id number] [employer] Articul/nnadmi 28mm Cementless Hip +1.5mm 12/14 Taper HeadFemoral Latex Free [id number] [employer] [id number] Left 1 Implanted OPERATIVE DETAILS Estimated Blood Loss: 250 mL Urine output : No [place]o catheter Intraoperative Fluids: 1900 mls Blood/Blood Products Transfused: none Incision type: Super mini-incision 6 cm Specimens: none PROCEDURE: INDICATIONS FOR PROCEDURE: This patient presents for total hip arthroplasty secondary to end-stage disease of the hip. The patient was seen in my outpatient clinic. The patient has failed non-operative treatment. After discussion with the patient we have decided to proceed with total hip arthroplasty surgery. I have discussed with the patient the risks, complications, and benefits of the procedure. All questions have been answered preoperatively. PROCEDURE: The patient was brought to the operating room and placed on the operating room table in the supine position. After anesthesia was established, the patient was positioned in the lateral decubitus position with the operative side up. All bony prominences and peripheral nerves were padded. A surgical time out was taken to confirm the operative side. The patient was given prophylactic antibiotics. The hip was prepped and draped in usual sterile fashion. I made a super mini incision approach to the hip. The incision was carried through the subcutaneous tissue to the underlying fascia octavio and G-max fascia which were incised in line with the skin incision. The Charnley retractor was placed. The piriformis and external rotators were released. The hip was dislocated. Femoral neck cut was made according to the preoperative plan. The acetabulum was exposed. The acetabulum was reamed to give an adequate press fit. The acetabular component was impacted into position targeting 45 degrees of abduction and 20 degrees of anteversion. After careful inspection of the acetabular component position to ensure proper orientation I then turned to the femoral side. Femoral preparation was started by cleaning out the soft tissue in the saddle region of the neck/trochanteric intersection. The canal was established and then sequentially broached took place using our pre-operative plan as a guide and broaching was completed when the final broach had excellent stability to manual testing and rotation. The trial neck and head was positioned on broach and the hip reduced. Leg length measurements on the table demonstrated good reconstruction of the leg lengths according to our preoperative plan. The hip stability was assessed and the hip was stable in extensionand external rotation. The hip was stable at 90 degrees of flexion, adduction of 20 degrees and inte rnal rotation to over 75 degrees. The hip was stable with aggressive manipulation to the extreme ofhip flexion (the maximum flexion I could assess with patients soft tissue tension and abdominal soft tissue). The hip was dislocated, the trial broach was removed. The final stem was inserted in routine fashion and had a solid endpoint. I examined the bone of the calcar region and this was completely intact, with no signs of calcar fracture. After placement of the stem, the final femoral head wasplaced and the hip reduced. Again, leg length assessment and stability assessment of the hip were excellent. I was pleased with the reconstruction. The wound was irrigated, and the capsule was repaired with #5 Ethibond through bone tunnels in the greater trochanter. The piriformis was repaired with#5 Ethibond through the gluteus medius insertion into the greater trochanter. Fascia octavio was repaired with #1 Vicryl interrupted stiches and then oversewn with Stratfix symmetric barbed suture. Subcutaneous tissue closed with 3-0 Monocryl. The wound was cleansed and sterile dressing placed. The patient tolerated the procedure well. There were no complications. The patient was delivered to the recovery room in good condition. The sponge and needle counts were correct. I, Dr. Colbert, was present for all critical portions of the case including surgical exposure, assessment of bone cuts, trialing of the implants, final implantation of prothesis, final trialing after the prosthesis was in place, and initiation of deep wound closure. Dr. Dwayne Vogt was immediately available for all noncritical portions of the procedure. Fellow assistant inventory manager There was no qualified orthopedic resident available to assist in the procedure. Therefore, the skilled assistance of Dwayne Vogt, who is a fellow in joint preservation and reconstruction surgery, was medically necessary for the performance of this case as there was no qualified orthopedic resident available. His activities included helping me with the surgical exposure, placement and maintenance of retractors, manipulation of the leg so that I could perform the critical portions of the procedure, and helped with wound closure. No Resident involved on case Complications: none Condition on Discharge from the operating room was: Stable Claude Colbert MD Date: 05/23/2022 Time: 8:19 AM * Brief Op Note - Dwayne Vogt MD - 05/12/2022 7:45 AM CST Operative Progress Note Surgical Team: Surgeon(s) and Role: * Claude Colbert MD - Primary * Dwayne Vogt MD - Fellow Anesthesiologist: Jeb Frye MD SCHOOL TREASURER: Shobha Garcia CRNA Record Changer: Yuliana Mathew RNFA; Vicki Leone RN Scrub Relief: Dulce, Khushboo, Scrub: Meredith Marcos ST MULTI NEEDLE MACHINE OPERATOR: Colette Monte RN DATE OF SURGERY : 05/12/2022 Preoperative Diagnosis: Pre-op Diagnosis * Primary osteoarthritis of left hip [M16.12] Postoperative Diagnosis: Post-op Diagnosis * Primary osteoarthritis of left hip [M16.12] Procedure(s): Procedure(s) (LRB): ARTHROPLASTY LEFT TOTAL HIP - DEPUY (Left) Operative Findings: Left hip osteoarthritis Estimated Blood Loss: 250 mL Intraoperative Fluids: 1800 mls Specimens: No specimen collected in procedure Implants: Implant Name Type Inv. Item Serial No. Landfill Attendant Lot No. LRB No. Used Action [employer] CUP 55MM ACETABULAR BI MENTUM FEMORAL PROXIMAL PRESS FIT [id number] - [id number] [employer] CUP 55MM ACETABULAR BI MENTUM FEMORAL PROXIMAL PRESS FIT [id number] [employer] [id number] Left 1 Implanted [employer] LINER ACET HIP SIZE 28 POLY BI MENTUM ALTRX 55MM [id number] - [id number] [employer] LINER ACET HIP SIZE 28 POLY BI MENTUM ALTRX 55MM [id number] [employer] [id number] Left 1 Implanted [employer] ACTIS L111 MM COLLAR HIP 8 HIGH OFFSET STEM FEMORAL [id number] - [id number] [employer] Actis L111 Mm Collar Hip 8 High Offset Stem Femoral [id number] [employer] [id number] Left 1 Implanted [employer] ARTICUL/NNAMDI 28MM CEMENTLESS HIP +1.5MM 12/14 TAPER HEAD FEMORAL LATEX FREE [id number] - [id number] [employer] Articul/nnamdi 28mm Cementless Hip +1.5mm 12/14 Taper HeadFemoral Latex Free [id number] [employer] [id number] Left 1 Implanted Blood/Blood Products Transfused: 0 mls Complications: None Condition on Discharge from the operating room was stable Dwayne oVgt MD Date: 05/12/2022 Time: 9:25 AM No Resident involved on case Cosigned by Claude Colbert MD at 05/12/2022 12:33 PM GRIP documented in this encounter Plan of Treatment Not on file documented as of this encounter Procedures Procedure Name Priority Date/Time Associated Diagnosis Comments XR PELVIS ORTHO VIEW ED Urgent/IP Urgent 05/12/2022 10:19 AM GRIP ARTHROPLASTY TOTAL HIP - DEPUY 05/12/2022 7:35 AM GRIP Primary osteoarthritis of left hip ABO/RH STAT 05/12/2022 6:41 AM GRIP ANTIBODY SCREEN STAT 05/12/2022 6:41 AM GRIP HC ANTIBODY SCREEN RBC STAT 05/12/2022 6:41 AM GRIP documented in this encounter Results * XR Pelvis Ortho View (05/12/2022 10:19 AM GRIP) Anatomical Region Laterality Modality Body, Pelvis N/A Computed Radiogr aphy 05/12/2022 10:3 4 AM GRIP Impressions 05/12/2022 10:34 AM GRIP Interval placement of total left hip arthroplasty in expected position. Electronically signed by: Blake Lagunas MD Narrative 05/12/2022 10:34 AM GRIP EXAMINATION: XR PELVIS ORTHO VIEW HISTORY: ??Arthroplasty follow-up. COMPARISONS: Radiographs 02/04/2022. FINDINGS: 2 radiographs of the pelvis were submitted for interpretation. Interval placement of total left hip arthroplasty in expected position. ??No acute hardware or periprosthetic fracture. ??Ossific fragment medial to the lesser trochanter. ??Postsurgical gas and swelling about the left hip. Unchanged total right hip arthroplasty in expected position. Procedure Note Blake Lagunas MD - 05/12/2022 EXAMINATION: XR PELVIS ORTHO VIEW HISTORY: Arthroplasty follow-up. COMPARISONS: Radiographs 02/04/2022. FINDINGS: 2 radiographs of the pelvis were submitted for interpretation. Interval placement of total left hip arthroplasty in expected position. No acute hardware or periprosthetic fracture. Ossific fragment medial to the lesser trochanter. Postsurgical gas and swelling about the left hip. Unchanged total right hip arthroplasty in expected position. IMPRESSION: Interval placement of total left hip arthroplasty in expected position. Electronically signed by: Blake Lagunas MD Dwayne Vogt MD IMG XR PROCEDURES Final Res ult * Antibody screen (05/12/2022 6:41 AM GRIP) Faby, indirect, Gel Interpretation Negative ABSC [facility] Blood 05/12/2022 6:41 AM GRIP 05/12/2022 6:46 AM GRIP Narrative [facility] - 05/12/2022 7:49 AM GRIP Has the patient had Daratumumab or Isatuximab in the past 6 months?->Unknown Mala Wagner NP LAB BLOOD BANK TEST ORDERABL ES Final Result Performing Organization Address [facility] de Phone Number [facility] [address] [address] [place] [address] * ABO/Rh (05/12/2022 6:41 AM GRIP) ABO/Rh A Positive [facility] Blood 05/12/2022 6:41 AM GRIP 05/12/2022 6:46 AM GRIP Narrative [facility] - 05/12/2022 7:49 AM GRIP Has the patient had Daratumumab or Isatuximab in the past 6 months?->Unknown Mala Wganer NP LAB BLOOD BANK TEST ORDERABL ES Final Result Performing Organization Address [facility] de Phone Number [facility] [address] [address] [place] [address] documented in this encounter Visit Diagnoses Diagnosis Primary osteoarthritis of left hip- Primary Primary osteoarthritis of left hip RUI on CPAP Class 2 obesity in adult Vitamin D deficiency Primary osteoarthritis of left hip documented in this encounter Admitting Diagnoses Diagnosis Primary osteoarthritis of left hip Arthritis of left hip documented in this encounter Administered Medications Inactive Administered Medications - up to 3 most recent administrations Medication Order MAR Action Action Date Dose Rate Site acetaminophen (TYLENOL) tablet 1,000 mg 1,000 mg, oral, Once, On Wed05/12/22 at 0645, For 1 dose, Pre-Op, Indications: PainIndications:Pain Given 05/12/2022 6:38 AM GRIP 1,000 mg bupivacaine 0.5%-EPINEPHrine 1:200,000 PF 60 mL and ketorolac 30 mg solution As needed, Starting on Wed05/12/22 at 0800, Intra-Op Given 05/12/2022 8:50 AM GRIP 61 mL Surgical Site ceFAZolin (ANCEF) 3,000 mg in sodium chloride 0.9% 3,000 mL irrigation solution As needed, Starting on Wed05/12/22 at 0801, Intra-Op Given 05/12/2022 8:50 AM GRIP Surgical Site gabapentin (NEURONTIN) capsule 300 mg 300 mg, oral, Once, On Wed05/12/22 at 0645, For 1 dose, Pre-Op, Indications: PainIndications:Pain Given 05/12/2022 6:38 AM GRIP 300 mg HYDROcodone-acetamino phen (NORCO) 5-325 mg per tablet 2 tablet 2 tablet, oral, Once as needed, 1st line for pain, Starting on Wed05/12/22 at 0934, For 1 dose, Phase I, Give 2 upon arrival to PACU as soon as able to take PO., Indications: PainIndications:Pain Given 05/12/2022 10:15 AM GRIP 2 tablets Lactated Ringer's (LR) bolus 1,000 mL 1,000 mL, intravenous, Once, On Wed05/12/22 at 0645, For 1 dose, Pre-Op New Bag 05/12/2022 6:37 AM GRIP 1,000 mL Lactated Ringer's (LR) bolus 500 mL 500 mL, intravenous, As needed, for hypotension. May give additional 500 ml bolus for continued hypotension. Document all fluids in Epic and on POUR protocol hand-off., Starting on Wed05/12/22 at 0934, Phase I Lactated Ringer's (LR) infusion 30 mL/hr, intravenous, Continuous, Starting on Wed05/12/22 at 0645, For 4 hours, Use a 500 ml bag for End Stage Renal Disease Patients. Discontinue if fluid still running once patient arrives to floor. Rate/Dose Change 05/12/2022 9:27 AM GRIP 800 mL/hr Rate/Dose Verify 05/12/2022 7:35 AM GRIP 30 mL/h r New Bag 05/12/2022 6:43 AM GRIP 30 mL/hr 30 mL/hr meloxicam (MOBIC) tablet 15 mg 15 mg, oral, Once, On Wed05/12/22 at 0645, For 1 dose, Pre-Op, Indications: PainIndications:Pain Given 05/12/2022 6:40 AM GRIP 15 mg documented in this encounter Discontinued Medications Medication Sig Discontinue Reason Start Date End Da te naproxen (NAPROSYN) 375 mg tabletIndications:Anti- inflammatory Take 375 mg by mouth Stop Taking at Discharge 05/12/2022 documented as of this encounter Active and Recently Administered Medications Times are shown in GRIP. Scheduled Medication Order 05/10/2022 05/11/2022 05/12/2022 acetaminophen (TYLENOL) tablet 1,000 mg (COMPLETED) 1,000 mg, oral, Once, On Wed05/12/22 at 0645, For 1 dose, Pre-Op, Indications: Pain 0638 (Given - Provid er: Johnathan Dunlap RN) ceFAZolin (ANCEF) 1 gram/10 mL in sterile water (premix) 3,000 mg (COMPLETED) 3,000 mg, intravenous, at 600 mL/hr, Administer over 3 Minutes, Once, On Wed05/12/22 at 0700, For 1 dose, Pre-Op, Administer within 60 minutes of incision., Indications: Prophylaxis, Surgical 0740 (Given - Provid er: Shobha Garcia CRNA) ceFAZolin (ANCEF) 1,000 mg in sodium chloride 0.9% 1,000 mL irrigation solution 1,000 mg, irrigation, Once, On Wed05/12/22 at 0645, For 1 dose, Intra-Op, Have ready for intra-op administration. 0645 (Due) dexAMETHasone (DECADRON) 4 mg/mL injection 8 mg (COMPLETED) 8 mg, intravenous, Administer over 2 Minutes, Once, On Wed05/12/22 at 0645, For 1 dose, Intra-Op, Intra-op administration. - Use 1/2 dose (4mg) for non-insulin dependent diabetics - DO NOT order for insulin dependent diabetics, Indications: Pain Treatment Adjunct 0915 (Given - Provid er: Shobha Garcia CRNA) gabapentin (NEURONTIN) capsule 300 mg (COMPLETED) 300 mg, oral, Once, On Wed05/12/22 at 0645, For 1 dose, Pre-Op, Indications: Pain 0638 (Given - Provid er: Jonhathan Dunlap RN) ketorolac (TORADOL) 30 mg/mL (1 mL) injection 30 mg (COMPLETED) 30 mg, intravenous, Once, On Wed05/12/22 at 0645, For 1 dose, Intra-Op, INTRA-OP Give at time of skin closure, Indications: Postoperatvie Pain Management 0915 (Given - Provid er: Shobha Garcia CRNA) Lactated Ringer's (LR) bolus 1,000 mL (COMPLETED) 1,000 mL, intravenous, Once, On Wed05/12/22 at 0645, For 1 dose, Pre-Op 0637 (New Bag - Prov ider: Johnathan Dunlap RN - Comment: warm) meloxicam (MOBIC) tablet 15 mg (COMPLETED) 15 mg, oral, Once, On Wed05/12/22 at 0645, For 1 dose, Pre-Op, Indications: Pain 0640 (Given - Provid er: Johnathan Dunlap RN) tranexamic acid (CYKLOKAPRON) 1,000 mg/100 mL (10 mg/mL) in sodium chloride (premix) 1,000 mg (COMPLETED)(Linked Group 1) 1,000 mg, intravenous, at 400 mL/hr, Administer over 15 Minutes, Once, On Wed05/12/22 at 0645, For 1 dose, Intra-Op, INTRA-OP Infuse over 10 minutes prior to skin incision, Indications: Reduction of Perioperative Blood Loss 0745 (Given - Provid er: Shobha Garcia CRNA) tranexamic acid (CYKLOKAPRON) 1,000 mg/100 mL (10 mg/mL) in sodium chloride (premix) 1,000 mg (COMPLETED)(Linked Group 1) 1,000 mg, intravenous, at 400 mL/hr, Administer over 15 Minutes, Once, On Wed05/12/22 at 0645, For 1 dose, Intra-Op, INTRA-OP Infuse over 10 minutes at the start of wound closure., Indications: Reduction of Perioperative Blood Loss 0915 (Given - Provid er: Shobha Garcia CRNA) Continuous Medication Order 05/10/2022 05/11/2022 05/12/2022 Lactated Ringer's (LR) infusion 30 mL/hr, intravenous, Continuous, Starting on Wed05/12/22 at 0645, For 4 hours, Use a 500 ml bag for End Stage Renal Disease Patients. Discontinue if fluid still running once patient arrives to floor. 0643 (New Bag - Prov ider: Johnathan Dunlap RN - Comment: warm)0735 (Rate/Dose Verify - Provider: Shobha Garcia CRNA)0927 (Rate/Dose Change - Provider: Shobha Garcia CRNA) Lactated Ringer's (LR) infusion 125 mL/hr, intravenous, Continuous, Starting on Wed05/12/22 at 1015, For 4 hours, Phase I, Discontinue upon discharge from PACU to the floor. 1015 (Due) PRN Medication Order 05/10/2022 05/11/2022 05/12/2022 acetaminophen (TYLENOL) tablet 500 mg 500 mg, oral, Every 6 hours PRN, headaches, other, Breakthrough Pain and Supplement to other pain meds, Starting on Wed05/12/22 at 0934, For 2 doses, Phase I, When able to tolerate PO after consulting with Anesthesiologist. Do not administer if patient has already received Acetaminophen-containing medications in PACU., Indications: Pain bupivacaine 0.5%-EPINEPHrine 1:200,000 PF 60 mL and ketorolac 30 mg solution (CANCELED) As needed, Starting on Wed05/12/22 at 0800, Intra-Op 0850 (Given - Provid er: Claude Colbert MD) ceFAZolin (ANCEF) 3,000 mg in sodium chloride 0.9% 3,000 mL irrigation solution (CANCELED) As needed, Starting on Wed05/12/22 at 0801, Intra-Op 0850 (Given - Provid er: Claude Colbert MD) diphenhydrAMINE (BENADRYL) injection 12.5 mg 12.5 mg, intravenous, Administer over 1 Minutes, Every 5 min PRN, itching, other, For Nausea, administer 25 mg IV., Starting on Wed05/12/22 at 0934, For 4 doses, Phase I, Max cumulative dose 50 mg., Indications: Itching hydrALAZINE (APRESOLINE) injection 5 mg 5 mg, intravenous, Administer over 2 Minutes, Every 5 min PRN, high blood pressure, Starting on Wed05/12/22 at 0934, Phase I, Max cumulative dose 20 mg. Dose if systolic BP greater than 180 AND heart rate less than 70., Indications: hypertension HYDROcodone-acetaminophen (NORCO) 5-325 mg per tablet 2 tablet (COMPLETED) 2 tablet, oral, Once as needed, 1st line for pain, Starting on Wed05/12/22 at 0934, For 1 dose, Phase I, Give 2 upon arrival to PACU as soon as able to take PO., Indications: Pain 1014 (Due)1015 (Give n - Provider: Marie Mack RN) HYDROmorphone (DILAUDID) injection 0.2 mg 0.2 mg, intravenous, Administer over 2 Minutes, Every 5 min PRN, 2nd line for pain, Use as 1st line pain med for inpatients or for patients with extremely severe pain., Starting on Wed05/12/22 at 0934, Phase I, Use as first line pain medication for inpatients. May use as first line medication for outpatients with extremely severe pain, history of opioid tolerance, or history of Chronic Pain with opioid tolerance, after consulting with Anesthesiologist. Inform anesthesiologist when dose reaches 2 mg for inpatients or 1 mg for outpatients., Indications: Chronic Pain with Opioid Tolerance, Pain, Severe Pain with Opioid Tolerance labetaloL (NORMODYNE,TRANDATE) injection 5 mg 5 mg, intravenous, Every 5 min PRN, high blood pressure, Starting on Wed05/12/22 at 0934, For 4 doses, Phase I, Max cumulative dose 20 mg. Dose if systolic blood pressure greater than 180 AND HR greater than 70. Lactated Ringer's (LR) bolus 500 mL 500 mL, intravenous, As needed, for hypotension. May give additional 500 ml bolus for continued hypotension. Document all fluids in Epic and on POUR protocol hand-off., Starting on Wed05/12/22 at 0934, Phase I meperidine (DEMEROL) preservative free injection 12.5 mg 12.5 mg, intravenous, Administer over 5 Minutes, Every 10 min PRN, shivering, Starting on Wed05/12/22 at 0934, For 2 doses, Phase I, Max cumulative dose 25 mg., Indications: Shivering naloxone (NARCAN) 0.4 mg/mL injection 0.04-0.4 mg 0.04-0.4 mg, intravenous, Once as needed, other, excessive sedation/respiratory depression, Starting on Wed05/12/22 at 0934, For 1 dose, Phase I, Dilute 0.4 mg with 9 mL NS (final concentration 0.04 mg/mL). For respiratory depression (respiratory rate less than 6), administer 0.4 mg IVP over 30 seconds. For excessive sedation administer 0.04 mg (1 mL) every 1 minute until desired level of alertness. Consult with Anesthesiologist before administration. Administer 40 mics at a time. For IV, administer over 30 seconds., Indications: Opioid Toxicity ondansetron (ZOFRAN) injection 4 mg 4 mg, intravenous, Administer over 2 Minutes, Once as needed, nausea, vomiting, Starting on Wed05/12/22 at 0934, For 1 dose, Phase I, Proceed to prochlorperazine if ondansetron has been given within the last 6 hours. prochlorperazine (COMPAZINE) injection 5 mg 5 mg, intravenous, Administer over 2 Minutes, Once as needed, nausea, vomiting, Starting on Wed05/12/22 at 0934, For 1 dose, Phase I, If nausea/vomiting not relieved by ondansetron within 30 minutes or if ondansetron has been given within the last 6 hours. May give second 5 mg dose if nausea not relieved 20 minutes after first dose. Linked Groups Order Group 1: tranexamic acid (CYKLOKAPRON) 1,000 mg/100 mL (10 mg/mL) in sodium chloride (premix) 1,000 mg (COMPLETED)Jump to med 1,000 mg, intravenous, at 400 mL/hr, Administer over 15 Minutes, Once, On Wed05/12/22 at 0645, For 1 dose, Intra-Op, INTRA-OP Infuse over 10 minutes prior to skin incision, Indications: Reduction of Perioperative Blood Loss And tranexamic acid (CYKLOKAPRON) 1,000 mg/100 mL (10 mg/mL) in sodium chloride (premix) 1,000 mg (COMPLETED)Jump to med 1,000 mg, intravenous, at 400 mL/hr, Administer over 15 Minutes, Once, On Wed05/12/22 at 0645, For 1 dose, Intra-Op, INTRA-OP Infuse over 10 minutes at the start of wound closure., Indications: Reduction of Perioperative Blood Loss documented in this encounter Orders Medications Ordered That Carroll ht Not Have Been Administered Count Last Ordered Date First Ordered Date acetaminophen (TYLENOL) tablet 500 mg 1 ceFAZolin (ANCEF) 1 gram/10 mL in sterile water (premix) 2,000 mg 1 05/12/2022 ceFAZolin (ANCEF) 1 gram/10 mL in sterile water (premix) 3,000 mg 1 05/12/2022 ceFAZolin (ANCEF) 1,000 mg i n sodium chloride 0.9% 1,000 mL irrigation solution 1 05/12/2022 dexAMETHasone (DECADRON) 4 m g/mL injection 8 mg 1 05/12/2022 diphenhydrAMINE (BENADRYL) i njection 12.5 mg 1 05/12/2022 famotidine (PEPCID) injection 20 mg 1 05/12 hydrALAZINE (APRESOLINE) injection 5 mg 1 1 07/13/2021 HYDROmorphone (DILAUDID) injection 0.2 mg 1 05/12/2022 ketorolac (TORADOL) 30 mg/mL (1 mL) injection 30 mg 1 05/12/2022 labetaloL (NORMODYNE,TRANDAT E) injection 5 mg 1 05/12/2022 Lactated Ringer's (LR) bolus 500 mL 1 05/12 Lactated Ringer's (LR) infusion 1 meperidine (DEMEROL) preserv ative free injection 12.5 mg 1 05/12/2022 naloxone (NARCAN) 0.4 mg/mL injection 0.04-0.4 mg 1 05/12/2022 ondansetron (ZOFRAN) injection 4 mg 1 05/12 prochlorperazine (COMPAZINE) injection 5 mg 1 05/12/2022 scopolamine patch 72 hour 1 patch 1 022 sodium chloride 0.9% flush 0.5-20 mL 1 04/30 07/2021 tranexamic acid (CYKLOKAPRON ) 1,000 mg/100 mL (10 mg/mL) in sodium chloride (premix) 1,000 mg 2 05/12/2022 Diet Count Last Ordered Date First Orde red Date ADULT DISCHARGE DIET 1 05/12/2022 Nursing Count Last Ordered Date First Orde red Date DISCHARGE ACTIVITY 1 05/12/2022 DISCHARGE CALL PROVIDER 11 05/12/2022 DISCHARGE DRESSING 1 05/12/2022 DISCHARGE INSTRUCTIONS 3 05/12/2022 WEIGHT BEARING STATUS 1 05/12/2022 Admission Count Last Ordered Date First Orde red Date INITIATE OUTPATIENT IN A BED 1 05/12/2022 documented in this encounter Care Teams University Demonstrator Relationship Specialty Start Date End Date Johnnie Red MD [address] [place] [address] PCP - General Family Medicine 02/14/20 documented as of this encounter
--- OUTSIDE RECORDS SUMMARY | 2024-06-03 08:14 | XMS_ITS | Encounter Summary ---
Author Organization [facility] Address [address] [place] [address] Phone Care Team Providers Care Silk Screen Operator Name Role Phone Johnnie Red MD Primary Care Provider [phone] Encounter Details Date Type Department Care Team (Late st Contact Info) Description 04/16/2022 Orders Only [facility] Orthopaedic Surgery [address] [place] [address] Medical Office Building [address] [place] [id number] Claude Colbert MD [facility] [address] [place] [address] Social History Tobacco Use Types Packs/Day Years [...] Refills Last Filled Start Date End Date mupirocin (BACTROBAN) 2 % ointment Apply topically 2 (two) times a day for 5 days APPLY TO NOSTRILS TWICE A DAY FOR 5 DAYS PRIOR TO SURGERY. 22 g 04/16/2022 2 documented in this encounter Plan of Treatment Not on file documented as of this encounter Visit Diagnoses Not on filedocumented in this encounter Care Teams Silk Screen Operator Relationship Specialty Start Date End Date Johnnie Red MD [address] [place] [address] PCP - General Family Medicine 02/14/20 documented as of this encounter
--- OUTSIDE RECORDS SUMMARY | 2024-06-03 08:14 | XMS_ITS | Encounter Summary ---
Author Organization [facility] Address [address] [place] [address] Phone Care Team Providers Care Olericulture Teacher Name Role Phone Johnnie Red MD Primary Care Provider [phone] Reason for Visit * Reason Comments Hip Problem * Auth/Cert Specialty Diagnoses / Procedures Referred By Rowdy t Referred To Contact Referral ID Status Reason Start Date Expiration Date Visits Re quested Visits Authorized [id number] 1 481 Encounter Details Date Type Department Care Team (Late st Contact Info) Description 05/25/2022 12:00 PM CORPORATE COMMUNICATIONS MANAGER Home Care Visit [facility] [address] [address] [address] [place] [address] Karmen Conde PTA PT HOME VISIT Social History Tobacco Use [...] Sign Reading Time Taken Comments Blood Pressure 138/76 05/25/2022 12:29 PM CORPORATE COMMUNICATIONS MANAGER Pulse 18 05/25/2022 12:29 PM CORPORATE COMMUNICATIONS MANAGER Temperature 36.3 ??C (97.4 ??F) 05/25/2022 12:[address] Respiratory Rate - - Oxygen Saturation 95% 05/25/2022 12:29 PM CORPORATE COMMUNICATIONS MANAGER Inhaled Oxygen Concentration - - Weight - - Height - - Body Mass Index - - documented in this encounter Miscellaneous Notes * Home Health Plan for Next Visit - Karmen Conde PTA - 05/25/2022 12:40 PM CST Reason for today's visit to progress with standing strengthening, gait with cane Discuss plan of care with pt and update to Nabila Patel Discharge planning next visit Plan for next visit reassessment with Nabila and meir pt does maintain hip precautions and cont to use cane however when up and down steps he is performing foot over foot and do recommend that he cont one foot at a time until sees Jw and discussed withJw pt denies pain most of time and is take acetaminophen and Ibuprofen pt is agreeable with plans to dc next visit ORATE COMMUNICATIONS MANAGER documented in this encounter Plan of Treatment [...] home health visit Disciplines: SN, PT, OT, CANCER CENTER DIRECTOR, SURGICAL PATHOLOGIST, Skilled Disciplines Monitor patient's vital signs every [...] needed due to AWILDA 05/15/2022 Active - 5 problem interventions scheduled/documen cristi in this visit [...] visit during episode of care Description: Home electricity trading analyst to measure vital signs during every home [...] Intervention Associated Problem/Goal Status Variance Visit Notes Cryotherapy Description: Instruct patient/caregiver on ice treatment to Left Hip x 15-20 minutes after HEP and as needed for pain and edema control. May use polar pack up to 60 minutes at a time. Patient to use adequate barrier between ice pack/polar pack pad and monitor skin frequently. 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 Problem:Physical Discomfort Goal:Physical Discomfort Completed pt takes acetaminophen as needed for pain Homebound Status Description: Patient is homebound due [...] concerns Goal:Demonstrate use of safety precautions Completed pt instructed to use straight cane at all times Assess safety Description: Assess patient safety Problem:Safety concerns Goal:Demonstrate use of safety precautions Completed Perform dressing change Description: Perform dressing [...] clean. Problem:Wound Care Goal:Progression towards healing Scheduled Home Exercise Program (HEP) Description: Instruct patient/caregiver and perform HEP. Problem:PT Orthopedic Completed while standing instructed pt on performing 10-15 reps each of heel toe raises, hip abd/add, hip flexion with knee flexion and hamstring curls performing samara to improve stance while seated laqs holding 3 seconds x 15 reps and while supine 15 reps each of anklepumping, quad sets and glut sets holding 3-5 seconds, hip abd/add with cues to engage quad before copmleting, heelslides and then 10 reps of slr on the left with cues to engage quad before completing pt has updated HEP Gait/Stair Training Description: Instruct patient/caregiver and perform gait/stair training. Problem:PT Orthopedic Completed gait with straight cane in the home over level surfaces for 150 ft WBAT on the left pt does exhibit very slight limp with gait up and down basement steps foot over foot which instructed pt to cont with one step at a time until talks with M.D pt using cane and handrail Bed Mobility/Transfer Training Description: Instruct patient/caregiver and perform bed mobility/transfer training. Problem:PT Orthopedic Completed sit to from stand and supine to from sit transfers on his own occasional cues not to void hip precautions Cryotherapy Description: Use of cold to L hip for pain relief. Instruct patient/caregiver in use of cold to L hip x 20 minutes, with 1 hour off between applications. Problem:PT Orthopedic Completed Therapeutic Exercise Description: Perform therapeutic exercise, progressing as tolerated. Problem:PT Orthopedic Completed see HEP comments documented in this encounter Care Teams Olericulture Teacher Relationship Specialty Start Date End Date Johnnie Red MD [address] [place] [address] PCP - General Family Medicine 02/14/20 documented as of this encounter
--- OUTSIDE RECORDS SUMMARY | 2024-06-03 08:14 | XMS_ITS | Encounter Summary ---
Author Organization [facility] Healthcare Address [address] [place] [address] Care Team Providers Care Fruit Farmworker Name Role Phone Johnnie Red MD Primary Care Provider [phone] Reason for Visit * Auth/Cert Specialty Diagnoses / Procedures Referred By Contac t Referred To Contact Diagnoses Primary osteoarthritis of left hip Primary osteoarthritis of left hip [M16.12] Procedures [facility] ARTHRP ACETBLR/PROX FEM PROSTC AGRFT/ALGRFT ARTHROPLASTY LEFT TOTAL HIP - DEPUY Referral ID Status Reason Start Date Expiration Date Visits Re quested Visits Authorized [id number] 1 1 Encounter Details Date Type Department Care Team (Late st Contact Info) Description 05/12/2022 7:35 AM KENNEL WORKER Anesthesia Event [facility] [address] [facility] [place] [address] Jeb Frye MD [address] [place] [address] Janneth Zaldivar MD [address] [place] [address] Anesthesia Record Procedure Summary Procedure Name Responsible Anesthesiologist Anesthesia Start Time Anesthesia Stop Time ARTHROPLASTY LEFT TOTAL HIP - DEPUY (Left: Hip) Jeb Frye MD 05/12/22 0735 05/12/22 0935 Events Date Time Event Comment 05/12/2022 0519 In Preop 0600 0726 Time out - Regional 0726 Start Supplemental O2 0726 Face Time 0727 An Block Induction The patie nt was reevaluated immediately before moderate or deep sedation and before anesthesia induction. 0730 Spinal Placed 0735 AN Equip Check 0735 An Start 0735 An Start Data 0735 In Room 0739 Start Supplemental O2 0739 An Induction The patient was reevaluated immediately before moderate or deep sedation use and before anesthesia induction. 0739 Anesthesia Ready 0756 Proc Start 0756 Incision Start 0930 Proc Fin 0930 an stop data 0930 Handoff to RN I completed my handoff to the receiving nurse during which we: 1. Patient identified 2. Responsible provider identified 3. Pertinent medical history reviewed 4. Procedure type and surgical course discussed 5. Intraoperative anesthetic management and any significant issues discussed 6. Expectations and concerns for postop period discussed 7. Questions solicited from receiving nurse 8. Patient disposition at the time of handoff: PACU 0931 Out of Room 0935 An Stop Meds Name Total fentaNYL PF 100 mcg midazolam 2 mg/2 mL 4 mg Propofol Bolus 50 mg Propofol Infusion 940.7 mg mepivacaine 2% PF 4 mL HYDROmorphone 2 mg/mL 1 mg ceFAZolin (ANCEF) 1 gram/10 mL in steril e water (premix) 3,000 mg 3,000 mg dexAMETHasone (DECADRON) 4 mg/mL injecti on 8 mg 8 mg ketorolac (TORADOL) 30 mg/mL (1 mL) inje ction 30 mg 30 mg tranexamic acid (CYKLOKAPRON ) 1,000 mg/100 mL (10 mg/mL) in sodium chloride (premix) 1,000 mg 1,000 mg tranexamic acid (CYKLOKAPRON ) 1,000 mg/100 mL (10 mg/mL) in sodium chloride (premix) 1,000 mg 1,000 mg ondansetron PF 4 mg Lactated Ringer's (LR) infusion 0 mL * Agents Name O2 N2O Air * Blood No blood administrations on file. Lines, Drains, and Airways Type Details Placement Removal Peripheral IV Placement Date: 05/12/22; Placement Time: 0633; Catheter Size: 20 G; Orientation: Anterior, Left, Proximal; Location: Forearm; Site Prep: Chlorhexidine; Inserted by: Fabi; Insertion Attempts: 1; Patient Tolerance: Tolerated well; Removal Date: 05/12/22; Removal Time: 1240; Removal Reason: Discharge 05/12/22 0633 by Johnathan Dunlap RN 05/12/22 1240 by Marie Mack RN RETIRED Surgical Site 05/12/22; 0801; Le ft; Hip/trochanter; 05/02/24 (Retired LDA, Removed/Completed by [facility] with LDA Utility); 1213 (Retired LDA, Removed/Completed by [facility] with LDA Utility) 05/12/22 0801 by Vicki Leone RN 05/02/24 1213 by Discharge Provider, Automatic documented in this encounter Social History Tobacco [...] on file documented as of this encounter OR Notes * Anesthesia Postprocedure Evaluation - Jeb Frye MD - 05/12/2022 11:21 AM CST Patient: Norman Lane Procedure Summary Date: 05/12/22 Room / Location: [facility] OPERATING ROOM / [facility] OPERATING [facility] Anesthesia Start: 734 Anesthesia Stop: 934 Procedure: ARTHROPLASTY LEFT TOTAL HIP - DEPUY (Left: Hip) Diagnosis: Primary osteoarthritis of left hip (Primary osteoarthritis of left hip [M16.12]) Surgeons: Claude Colbert MD Responsible Provider: Jeb Frye MD Anesthesia Type: regional as primary anesthetic, spinal ASA Status: 2 Anesthesia Type: regional as primary anesthetic, spinal Last vitals BP 156/90 Pulse 70 Temp 36.5 ??C (97.7 ??F) Resp 17 SpO2 97% Anesthesia Post Evaluation Patient location during evaluation: PACU Patient participation: complete - patient participated Level of consciousness: fully awake Pain score: 1 Pain management: adequate Airway patency: adequate Evidence of recall: no Cardiovascular status: hemodynamically stable and acceptable Respiratory status: acceptable and room air Hydration status: acceptable Pt is: normothermic Nausea/Vomiting status: none No notable events documented. EL WORKER * Anesthesia Procedure Notes - Jeb Frye MD - 05/12/2022 7:31 AM KENNEL WORKER Associated Order(s): Spinal Block Spinal Block Patient location: pre-op holding Reason for block: primary anesthetic Procedure prep: Preprocedure checklist: patient identified, procedure contraindications assessed, site marked, procedure consent, surgical consent, IV checked, risks, benefits and alternatives discussed, monitors and equipment checked and timeout performed Patient position: sitting Procedure performed while patient: sedate with meaningful contact Monitoring: oximetry and blood pressure Supplemental O2: nasal cannula Prep solution: chlorhexadine/alcohol PPE: sterile gloves, provider hat/mask and sterile drape Skin infiltrated with lidocaine 1%: yes Spinal: Approach: midline Introducer used: yes Location: L3-4 Spinal injection: CSF demonstrated, no aspiration of heme and no paresthesias noted Number of attempts: 1 Spinal Needle: Needle type: Delmis Leno (Delmis Leno) Needle gauge: 24 G Needle length: 9 cm Assessment: Events: patient tolerated procedure well with no complications EL WORKER * Anesthesia Preprocedure Evaluation - Jeb Frye MD - 04/27/2022 7:38 AM CST Images from the original note were not included. [facility] Planning Preoperative Evaluation Record Evaluation type/location: [facility] Planned procedure site: [facility] OR Date: 04/27/22 Anesthesia Evaluation Norman [...] Cardiovascular Pertinent negatives: hypertension ; CAD ; ND ; CABG ; valvular heart disease; valve [...] Medication protocol when under care of a FIELD SERVICE REPRESENTATIVE Planned anesthesia: Regional as primary anesthetic and [...] and agree to proceed. All questions answered. EL WORKER EL WORKER EL WORKER documented in this encounter Miscellaneous Notes * Addendum Note - Shobha Garcia CRNA - 05/12/2022 5:50 PM CST Addendum created 05/12/22 175 by Shobha Garcia CRNA Intraprocedure Meds edited EL WORKER documented in this encounter Plan of Treatment Not on file documented as of this encounter Procedures Procedure Name Priority Date/Time Associated Diagnosis Comments VA AN PROCEDURE PLACEHOLDER Routine 05/12/2022 7:31 AM KENNEL WORKER documented in this encounter Results * VA AN PROCEDURE PLACEHOLDER (05/12/2022 7:31 AM KENNEL WORKER) Narrative Jeb Frye MD - 05/12/2022 7:31 AM KENNEL WORKER Jeb Frye MD ? 05/12/2022 ??7:32 AM Spinal Block Patient location: pre-op holding Reason for block: primary anesthetic Procedure prep: Preprocedure checklist: patient identified, procedure contraindications assessed, site marked, procedure consent, surgical consent, IV checked, risks, benefits and alternatives discussed, monitors and equipment checked and timeout performed Patient position: sitting Procedure performed while patient: sedate with meaningful contact Monitoring: oximetry and blood pressure Supplemental O2: nasal cannula Prep solution: chlorhexadine/alcohol PPE: sterile gloves, provider hat/mask and sterile drape Skin infiltrated with lidocaine 1%: yes Spinal: Approach: midline Introducer used: yes Location: L3-4 Spinal injection: CSF demonstrated, no aspiration of heme and no paresthesias noted Number of attempts: 1 Spinal Needle: Needle type: Delmis Leno (Delmis Leno) Needle gauge: 24 G Needle length: 9 cm Assessment: Events: patient tolerated procedure well with no complications Jeb Frye MD ANESTHESIA ORDERABLES Brandi l Result documented in this encounter Visit Diagnoses Not on filedocumented in this encounter Administered Medications Inactive Administered Medications - up to 3 most recent administrations Medication Order MAR Action Action Date Dose Rate Site ceFAZolin (ANCEF) 1 gram/10 mL in sterile water (premix) 3,000 mg 3,000 mg, intravenous, at 600 mL/hr, Administer over 3 Minutes, Once, On Wed05/12/22 at 0700, For 1 dose, Pre-Op, Administer within 60 minutes of incision., Indications: Prophylaxis, SurgicalIndications:Prophylaxis, Surgical Given 05/12/2022 7:40 AM KENNEL WORKER 3,000 mg dexAMETHasone (DECADRON) 4 mg/mL injection 8 mg 8 mg, intravenous, Administer over 2 Minutes, Once, On Wed05/12/22 at 0645, For 1 dose, Intra-Op, Intra-op administration. - Use 1/2 dose (4mg) for non-insulin dependent diabetics - DO NOT order for insulin dependent diabetics, Indications: Pain Treatment AdjunctIndications:Pain Treatment Adjunct Given 05/12/2022 9:15 AM KENNEL WORKER 8 mg fentaNYL (SUBLIMAZE) preservative free injection intravenous, As needed, Starting on Wed05/12/22 at 0727, Anesthesia Intra-op Given 05/12/2022 7:27 AM KENNEL WORKER 100 mcg HYDROmorphone (DILAUDID) injection intravenous, Administer over 2 Minutes, As needed, Starting on Wed05/12/22 at 0750, Anesthesia Intra-op Given 05/12/2022 9:15 AM KENNEL WORKER 0.5 mg Given 05/12/2022 7:50 AM KENNEL WORKER 0.5 mg ketorolac (TORADOL) 30 mg/mL (1 mL) injection 30 mg 30 mg, intravenous, Once, On Wed05/12/22 at 0645, For 1 dose, Intra-Op, INTRA-OP Give at time of skin closure, Indications: Postoperatvie Pain ManagementIndications:Postoper atvie Pain Management Given 05/12/2022 9:15 AM KENNEL WORKER 30 mg Lactated Ringer's (LR) infusion 30 mL/hr, intravenous, Continuous, Starting on Wed05/12/22 at 0645, For 4 hours, Use a 500 ml bag for End Stage Renal Disease Patients. Discontinue if fluid still running once patient arrives to floor. Rate/Dose Change 05/12/2022 9:27 AM KENNEL WORKER 800 mL/hr Rate/Dose Verify 05/12/2022 7:35 AM KENNEL WORKER 30 mL/h r New Bag 05/12/2022 6:43 AM KENNEL WORKER 30 mL/hr 30 mL/hr mepivacaine (CARBOCAINE) 20 mg/mL (2 %) preservative free injection caudal block, As needed, Starting on Wed05/12/22 at 0730, Anesthesia Intra-op Given 05/12/2022 7:30 AM KENNEL WORKER 4 mL midazolam (VERSED) 1 mg/mL injection intravenous, As needed, Starting on Wed05/12/22 at 0727, Anesthesia Intra-op Given 05/12/2022 7:27 AM KENNEL WORKER 4 mg ondansetron (ZOFRAN) injection intravenous, Administer over 2 Minutes, As needed, Starting on Wed05/12/22 at 0740, Anesthesia Intra-op Given 05/12/2022 7:40 AM KENNEL WORKER 4 mg propofoL (DIPRIVAN) 10 mg/mL IV intravenous, As needed, Starting on Wed05/12/22 at 0739, Anesthesia Intra-op Given 05/12/2022 7:39 AM KENNEL WORKER 50 mg propofoL (DIPRIVAN) 10 mg/mL IV intravenous, Continuous PRN, Starting on Wed05/12/22 at 0739, Anesthesia Intra-op Rate/Dose Change 05/12/2022 8:40 AM KENNEL WORKER 75 mcg/kg/min 58.59 mL/hr Rate/Dose Change 05/12/2022 8:05 AM KENNEL WORKER 50 mcg/kg/min 39.0 6 mL/hr New Bag 05/12/2022 7:39 AM KENNEL WORKER 75 mcg/kg/min 58.59 mL/h r tranexamic acid (CYKLOKAPRON) 1,000 mg/100 mL (10 mg/mL) in sodium chloride (premix) 1,000 mg 1,000 mg, intravenous, at 400 mL/hr, Administer over 15 Minutes, Once, On Wed05/12/22 at 0645, For 1 dose, Intra-Op, INTRA-OP Infuse over 10 minutes prior to skin incision, Indications: Reduction of Perioperative Blood LossIndications:Reduction of Perioperative Blood Loss Given 05/12/2022 7:45 AM KENNEL WORKER 1,000 mg tranexamic acid (CYKLOKAPRON) 1,000 mg/100 mL (10 mg/mL) in sodium chloride (premix) 1,000 mg 1,000 mg, intravenous, at 400 mL/hr, Administer over 15 Minutes, Once, On Wed05/12/22 at 0645, For 1 dose, Intra-Op, INTRA-OP Infuse over 10 minutes at the start of wound closure., Indications: Reduction of Perioperative Blood LossIndications:Reduction of Perioperative Blood Loss Given 05/12/2022 9:15 AM KENNEL WORKER 1,000 mg documented in this encounter Care Teams Fruit Farmworker Relationship Specialty Start Date End Date Johnnie Red MD [address] [place] [address] PCP - General Family Medicine 02/14/20 documented as of this encounter
--- OUTSIDE RECORDS SUMMARY | 2024-06-03 08:14 | XMS_ITS | Encounter Summary ---
Author Organization [facility] Home Care Servic es Address [address] [place] [address] Phone Care Team Providers Care Sap Bods Developer Name Role Phone Johnnie Red MD Primary Care Provider [phone] Reason for Visit * Auth/Cert Specialty Diagnoses / Procedures Referred By Contac t Referred To Contact Referral ID Status Reason Start Date Expiration Date Visits Re quested Visits Authorized [id number] 2 440 Encounter Details Date Type Department Care Team (Latest Contact Info) Description 05/14/2022 10:30 AM TELETYPESETTER Home Care Visit [facility] [address] [address] [address] [place] [address] Sofia Williamson, RN SN NON OASIS START OF CARE Social History Tobacco Use Types Packs/Day Years [...] Sign Reading Time Taken Comments Blood Pressure 148/76 05/14/2022 11:30 AM TELETYPESETTER Pulse 96 05/14/2022 11:30 AM TELETYPESETTER Temperature 36.4 ??C (97.6 ??F) 05/14/2022 11:[address] Respiratory Rate 18 05/14/2022 11:30 AM TELETYPESETTER Oxygen Saturation 96% 05/14/2022 11:30 AM TELETYPESETTER Inhaled Oxygen Concentration - - Weight - - Height 193 cm (6' 4 ) 05/14/2022 11:30 AM TELETYPESETTER Body Mass Index - - documented in this encounter Plan of Treatment Not on file documented as of this encounter Visit Diagnoses Not on filedocumented in this encounter Home Health Visit - Care Plan Visit Details Visit Type -SN Non-OASIS Sta rt of Care Discipline -Half-Way Problems Problem Description Start Date Status Goals Interve ntions Patient/Caregive r Total Joint Education Disciplines: Core Disciplines Patient/Carregiv er Education re: Total Joint Replacement 05/14/2022 Active 1 goal linked to scheduled/documen cristi intervention 3 goal interventions scheduled/documen cristi in this visit Physical Discomfort Disciplines: Core Disciplines Alteration in comfort 05/14/2022 Active 1 goal linked to scheduled/documen cristi intervention 1 goal intervention scheduled/documen cristi in this visit Homebound Status Disciplines: Skilled Disciplines Patient's homebound status 05/14/2022 Active 1 goal linked to scheduled/documen cristi intervention 1 goal intervention scheduled/documen cristi in this visit Medications Disciplines: Half-Way Management of home medications 05/14/2022 Active 1 goal linked to scheduled/documen cristi intervention 1 goal intervention scheduled/documen cristi in this visit Monitor patient's vital signs every home health visit Disciplines: SN, PT, OT, ENVIRONMENTAL REMEDIATION CONSULTANT, EMBROIDERY PATTERNMAKER, Skilled Disciplines Monitor patient's vital signs every [...] goal intervention scheduled/documen cristi in this visit Goals Goal [...] most appropriate care setting. Homebound Status No Understand and follow medication therapy Description: Patient/caregiver will understand and follow prescribed medication therapy as evidence by having up to date medication list in home & ability to verbalize purpose, schedule, and side effects by the end of the episode of care Medications No Measure vital signs during every home health visit during episode of care Description: Home dicer operator to measure vital signs during every [...] pack/polar pack pad and monitor skin frequently. Problem:Patient/returns clerk Total Joint Education Goal:Verbalize Knowledge of Joint Education Completed Post-op nutritional needs Description: Assess nutritional status and instruct patient/caregiver on diet to promote incisional healing and adequate hydration. Problem:Patient/returns clerk Total Joint Education Goal:Verbalize Knowledge of Joint Education Completed Elimination Description: Assess elimination and instruct patient/caregiver on bowel regimen related to taking pain medication. Problem:Patient/returns clerk Total Joint Education Goal:Verbalize Knowledge of Joint Education Completed Instruct on pain management techniques Description: Instruct in pharmacologic and nonpharmacologic pain management techniques. Problem:Physical Discomfort Goal:Physical Discomfort Completed see pain assessment Homebound Status Description: Patient is homebound due to medical condition, unsteady gait/poor balance, fall risk and pain limiting mobility as evidenced by Recent Left Hip Arthroplasty. Problem:Homebound Status Goal:Patient receives care at the most appropriate care setting Completed Patient is homebound due to medical condition, unsteady gait/poor balance, fall risk and pain limiting mobility as evidenced by Recent Left Hip Arthroplasty. Instruct medications Description: Instruct patient/caregiver in medication administration, purpose, dosages, preparation, scheduling, side effects, food/drug interactions, storage, drug allergies, and potential complications. Problem:Medications Goal:Understand and follow medication therapy Completed Patient instructed on medication administration, purpose, dosages, preparation, scheduling, side effects, food/drug interactions, and potential complications. Current regimen and compliance reviewed with Patient. verbalize decrease in pain . Medications taught Oxycodone. Monitor Vital Signs Description: Monitor blood pressure, [...] clean. Problem:Wound Care Goal:Progression towards healing Completed Clinician performed wound care per Physician's order dated 05/14/22. Patient tolerated well documented in this encounter Care Teams Sap Bods Developer Relationship Specialty Start Date End Date Johnnie Red MD [address] [place] [address] PCP - General Family Medicine 02/14/20 documented as of this encounter
--- OUTSIDE RECORDS SUMMARY | 2024-06-03 08:14 | XMS_ITS | Encounter Summary ---
Author Organization [facility] Healthcare Address [address] [place] [address] Care Team Providers Care Packager Or Packer And Weigher Name Role Phone Johnnie Red MD Primary Care Provider Reason for Visit * Auth/Cert Specialty Diagnoses / Procedures Referred By Contac t Referred To Contact Diagnoses Primary osteoarthritis of left hip Primary osteoarthritis of left hip [M16.12] Procedures IN ARTHRP ACETBLR/PROX FEM PROSTC AGRFT/ALGRFT ARTHROPLASTY LEFT TOTAL HIP - DEPUY Referral ID Status Reason Start Date Expiration Date Visits Re quested Visits Authorized [id number] 1 1 Encounter Details Date Type Department Care Team (Latest Contact Info) Description 05/12/2022 5:12 AM SEWING TECHNIQUES DEMONSTRATOR - 05/12/2022 12:50 PM SEWING TECHNIQUES DEMONSTRATOR Hospital Encounter [facility] Operating Room [id number] [place] [id number] Claude Colbert MD [address] [facility] [address] [place] [address] Primary osteoarthritis of left hip (Primary Dx) Discharge Disposition: Discharge to home or self [...] Sign Reading Time Taken Comments Blood Pressure 160/90 05/12/2022 11:20 AM SEWING TECHNIQUES DEMONSTRATOR Pulse 71 05/12/2022 11:20 AM SEWING TECHNIQUES DEMONSTRATOR Temperature 36.7 ??C (98.1 ??F) 05/12/2022 11:[address] Respiratory Rate 18 05/12/2022 11:20 AM SEWING TECHNIQUES DEMONSTRATOR Oxygen Saturation 97% 05/12/2022 11:20 AM SEWING TECHNIQUES DEMONSTRATOR Inhaled Oxygen Concentration - - Weight 130.2 kg (287 lb) 05/12/2022 5:20 AM SEWING TECHNIQUES DEMONSTRATOR Height 193 cm (6' 4 ) 05/12/2022 5:20 AM SEWING TECHNIQUES DEMONSTRATOR Body Mass Index 34.93 05/12/2022 5:20 AM SEWING TECHNIQUES DEMONSTRATOR documented in this encounter Discharge Summaries * Ruby Her, FELIX - 05/12/2022 9:11 AM CST Inpatient Discharge Summary Admitting Provider: Claude Colbert MD Discharge Provider: No att. providers found Primary Care Physician at Discharge: Johnnie Red MD [phone] Admission Date: 05/12/2022 Discharge Date: 05/13/2022 Primary [...] Your Medications These medications were sent to [facility] [place], [place] - [address] [facility] [address] [facility] [address] acetaminophen 500 mg tablet aspirin 81 mg [...] 8:50 AM Return with Claude Colbert MD [facility] Orthopaedic Surgery ( ORTHOPEDIC SURGERY) [address] [facility] Medical Office Building [address] [place] [phone] Condition on Discharge: Stable Cosigned by Claude Colbert MD at 05/13/2022 4:44 PM SEWING TECHNIQUES DEMONSTRATOR NG TECHNIQUES DEMONSTRATOR NG TECHNIQUES DEMONSTRATOR documented in this encounter Discharge Instructions * Discharge Instructions* Marie Mack RN - 05/12/2022 9:08 AM SEWING TECHNIQUES DEMONSTRATOR Images from the original note were not included. You have received anesthesia, therefore, for the next 24 hours and/or while taking narcotic pain medication; -Do NOT drive a vehicle -Do NOT drink alcohol -Do NOT make important personal or business decisions or sign legal documents. Examples of narcotic pain medication include Percocet, Oxycontin, [place], Hydrocodone, and Oxycodone. FAQs (frequently asked questions) [...] physical therapy, we are available to assist: [facility] STAR: [facility] [phone] [phone] [facility] [phone] How are some things that you can [...] given by your doctor or other health care manager cna. NG TECHNIQUES DEMONSTRATOR NG TECHNIQUES DEMONSTRATOR * Discharge Instr - Other Orders* Joseline Kessler RN - 05/12/2022 6:41 AM SEWING TECHNIQUES DEMONSTRATOR HOME CARE PROVIDER: [facility] WILL PROVIDE RN & PT SERVICES UPON DISCHARGE. PT CAN CALL [phone] FOR ANY HOME CARE QUESTIONS OR CONCERNS. THE HOME CARE PROVIDER WILL CALL YOU WITHIN 48 HOURS OF HOSPITAL DISCHARGE. NG TECHNIQUES DEMONSTRATOR documented in this encounter Medications at Time [...] #1: Physical Therapy Home Care Agency Name [facility] Home Care Agency Home Care Agency Contact Spoken to JOHNATHAN Discharge Additional Assistance Does the patient need discharge transport arranged? No Post Discharge Care Provider Post Discharge Care Plan Next level of care provider has access to complete EMR NG TECHNIQUES DEMONSTRATOR * Joseline Kessler RN - 05/12/2022 6:43 AM CST 05/12/22 0642 Information Information Obtained From Patient Referral Data Referral Source Physician Referral Reason Discharge Planning Prior to Admission Primary Caregiver Self Support System Spouse/Significant Other Support system contact info (name, phone, availablity) [address] [phone] Home Care Services Yes Type of Home Care Services Home therapies;Nurse visit Home care service name and phone number HOME HEALTH: [facility] [phone] Durable Medical Equipment Walker (wheeled) Living Arrangements Spouse/significant other Type of Residence Private residence NG TECHNIQUES DEMONSTRATOR * Joseline Kessler RN - 05/12/2022 6:42 AM CST 05/12/22 0642 Communications Patient choice (Home Health/Hospice) list given to patient/labor union business representative? Yes No HH preference. NG TECHNIQUES DEMONSTRATOR * Julia Stevens RPh - 05/12/2022 6:21 AM CST Patient weight = 130.2 kg Change cefazolin dose to 3000 mg per pharmacy dosing protocol. Pre-Operative Cefazolin Dosing Cefazolin Indication Patient Weight Dose Surgical Prophylaxis, Preoperative <120 kg 2000 mg >/= 120 kg 3000 mg References: 2016 ASHP/IDSA/SIS/MORENO Guidelines for Antimicrobial Prophylaxis in Surgery [facility] Toolbook/[place], last reviewed 05/10/18 Approved by [employer] 06/09/18, Approved by [employer] 07/07/18, Approved by [facility] 07/20/18 NG TECHNIQUES DEMONSTRATOR documented in this encounter H&P Notes * Claude Colbert MD - 05/12/2022 7:13 AM CST I have reviewed the H&P, examined the patient, and endorse the findings as written. Plan of Care : Based on the above findings, I consider Norman Lane to be an acceptable risk for : Procedure(s): ARTHROPLASTY LEFT TOTAL HIP - DEPUY NG TECHNIQUES DEMONSTRATOR Source Note - Jeb Frye MD - 04/27/2022 7:38 AM SEWING TECHNIQUES DEMONSTRATOR Images from the original note were not included. Center for Preoperative Assessment and Planning Preoperative Evaluation Record Evaluation type/location: [facility] Planned procedure site: [facility] OR Date: 04/27/22 Anesthesia Evaluation Norman [...] Cardiovascular Pertinent negatives: hypertension ; CAD ; [place] ; CABG ; valvular heart disease; valve [...] 10 mg tablet Past Week -- -- ProviderRuth Ann MD mometasone (NASONEX) 50 mcg/actuation nasal spray [...] Medication protocol when under care of a PRINTER HELPER Planned anesthesia: Regional as primary anesthetic and [...] and agree to proceed. All questions answered. 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 Michelle Charles OT NG TECHNIQUES DEMONSTRATOR * Alma Delia Alvarez, PT - 05/12/2022 10:35 AM CST [facility] Physical Therapy Initial Evaluation Patient Name: Norman Lane Date of Service: 05/12/2022 Date of : 1965 Age: 57 y.o. 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 Pain Assessment: Pre-evaluation pain: Post-evaluation pain: Location: Left hip Pain intervention: Patient received [...] with slide board) 1x10 Comments: Performed per [facility] AWILDA protocol. Balance Dynamic Standing Balance [...] verbalized understanding and demonstrated understanding. Handouts Issued: [facility] AWILDA HEP and Modified posterior hip precautions [...] appropriately per protocol with assistance from joint middle school volleyball coach as needed in order to increase strength/increase endurance by the above completion date. Comments: Completed The patient will recall modified posterior hip precautions with cueing from joint middle school volleyball coach in order toensure patient maintains precautions by [...] appropriate discharge disposition. Alma Delia Alvarez, PT NG TECHNIQUES DEMONSTRATOR documented in this encounter Miscellaneous Notes * Perioperative Nursing Note - Marie Mack RN - 05/12/2022 12:40 PM CST Pt has progressed well, VSS, denies nausea, taking po well, and then pain pills earlier. Now after therapy rating pain 1-2/10, tolerable. at bedside, all discharge/ AVS information reviewed and both verbalize an understanding. CAREER SERVICES COORDINATOR, Case mgmt, PT and OT and Anesthesia, all to see pt and give clearance for discharge. NG TECHNIQUES DEMONSTRATOR * Plan of Care - Johnathan Magaña RN - 05/12/2022 8:24 AM CST [facility] Home Health consult received. [facility] Home Care agency accepted patient with projected start of care within 48 hours of completed referral and discharge. Jimena DUNN, notified. NG TECHNIQUES DEMONSTRATOR * Op Note - Claude Colbert MD [...] Implant Name Type Inv. Item Serial No. Marshmallow Machine Worker Lot No. LRB No. Used Action [employer] CUP 55MM ACETABULAR BI MENTUM FEMORAL PROXIMAL PRESS FIT [id number] - [id number] [employer] CUP 55MM ACETABULAR BI MENTUM FEMORAL PROXIMAL PRESS FIT [id number] [employer] [id number] Left 1 Implanted [employer] LINER ACET HIP SIZE 28 POLY BI MENTUM ALTRX 55MM [id number] - [id number] [employer] LINER ACET HIP SIZE 28 POLY BI MENTUM ALTRX 55MM [id number] [employer] [id number] Left 1 Implanted [employer] ACTIS L111 MM COLLAR HIP 8 HIGH OFFSET STEM FEMORAL [id number] - [id number] [employer] Actis L111 Mm Collar Hip 8 High Offset Stem Femoral [id number] [employer] [id number] Left 1 Implanted [employer] ARTICUL/NNAMDI 28MM CEMENTLESS HIP +1.5MM 12/14 TAPER HEAD FEMORAL LATEX FREE [id number] - [id number] [employer] Articul/nnamdi 28mm Cementless Hip +1.5mm 12/14 Taper HeadFemoral Latex Free [id number] [employer] [id number] Left 1 Implanted OPERATIVE DETAILS Estimated Blood [...] and needle counts were correct. I, Dr. Colebrt, was present for all critical portions of the case including surgical exposure, assessment of bone cuts, trialing of the implants, final implantation of prothesis, final trialing after the prosthesis was in place, and initiation of deep wound closure. Dr. Dwayne Vogt was immediately available for all noncritical portions of the procedure. Fellow employee relations assistant There was no qualified orthopedic resident available [...] Colbert MD Date: 05/23/2022 Time: 8:19 AM NG TECHNIQUES DEMONSTRATOR * Brief Op Note - Dwayne Vogt MD - 05/12/2022 7:45 AM CST Operative Progress Note Surgical Team: Surgeon(s) and Role: * Claude Colbert MD - Primary * Dwayne Vogt MD - Fellow Anesthesiologist: Jeb Frye MD PRINTER HELPER: Shobha Garcia CRNA [employer] Director: Yuliana Mathew RNFA; Vicki Leone RN Scrub Relief: Khushboo Cardona ST Scrub: Meredith Marcos ST SENIOR AIR DIRECTOR: Colette Monte RN DATE OF SURGERY : [...] Implant Name Type Inv. Item Serial No. Marshmallow Machine Worker Lot No. LRB No. Used Action [employer] CUP 55MM ACETABULAR BI MENTUM FEMORAL PROXIMAL PRESS FIT [id number] - [id number] [employer] CUP 55MM ACETABULAR BI MENTUM FEMORAL PROXIMAL PRESS FIT [id number] [employer] [id number] Left 1 Implanted [employer] LINER ACET HIP SIZE 28 POLY BI MENTUM ALTRX 55MM [id number] - [id number] [employer] LINER ACET HIP SIZE 28 POLY BI MENTUM ALTRX 55MM [id number] [employer] [id number] Left 1 Implanted [employer] ACTIS L111 MM COLLAR HIP 8 HIGH OFFSET STEM FEMORAL [id number] - [id number] [employer] Actis L111 Mm Collar Hip 8 High Offset Stem Femoral [id number] [employer] [id number] Left 1 Implanted [employer] ARTICUL/NNAMDI 28MM CEMENTLESS HIP +1.5MM 12/14 TAPER HEAD FEMORAL LATEX FREE [id number] - [id number] [employer] Articul/nnamdi 28mm Cementless Hip +1.5mm 12/14 Taper HeadFemoral Latex Free [id number] [employer] [id number] Left 1 Implanted Blood/Blood Products Transfused: 0 mls Complications: None Condition on Discharge from the operating room was stable Dwayne Vogt MD Date: 05/12/2022 Time: 9:25 AM No Resident involved on case Cosigned by Claude Colbert MD at 05/12/2022 12:33 PM SEWING TECHNIQUES DEMONSTRATOR NG TECHNIQUES DEMONSTRATOR NG TECHNIQUES DEMONSTRATOR documented in this encounter Plan of Treatment Not on file documented as of this encounter Procedures Procedure Name Priority Date/Time Associated Diagnosis Comments XR PELVIS ORTHO VIEW ED Urgent/IP Urgent 05/12/2022 10:19 AM SEWING TECHNIQUES DEMONSTRATOR ARTHROPLASTY TOTAL HIP - DEPUY 05/12/2022 7:35 AM SEWING TECHNIQUES DEMONSTRATOR Primary osteoarthritis of left hip ABO/RH STAT 05/12/2022 6:41 AM SEWING TECHNIQUES DEMONSTRATOR ANTIBODY SCREEN STAT 05/12/2022 6:41 AM SEWING TECHNIQUES DEMONSTRATOR HC ANTIBODY SCREEN RBC STAT 05/12/2022 6:41 AM SEWING TECHNIQUES DEMONSTRATOR documented in this encounter Results * XR Pelvis Ortho View (05/12/2022 10:19 AM SEWING TECHNIQUES DEMONSTRATOR) Anatomical Region Laterality Modality Body, Pelvis N/A Computed Radiogr aphy 05/12/2022 10:3 4 AM SEWING TECHNIQUES DEMONSTRATOR Impressions 05/12/2022 10:34 AM SEWING TECHNIQUES DEMONSTRATOR Interval placement of total left hip arthroplasty in expected position. Electronically signed by: Blake Lagunas MD [facility] 05/12/2022 10:34 AM SEWING TECHNIQUES DEMONSTRATOR EXAMINATION: XR PELVIS ORTHO VIEW HISTORY: ??Arthroplasty [...] position. Electronically signed by: Blake Lagunas MD us Dwayne Vogt MD IMG XR PROCEDURES Final Res ult * Antibody screen (05/12/2022 6:41 AM SEWING TECHNIQUES DEMONSTRATOR) Faby, indirect, Gel Interpretation Negative ABSC CERNER [facility] Blood 05/12/2022 6:41 AM SEWING TECHNIQUES DEMONSTRATOR 05/12/2022 6:46 AM SEWING TECHNIQUES DEMONSTRATOR Narrative LUZ MARIA CRUZ - 05/12/2022 7:49 AM SEWING TECHNIQUES DEMONSTRATOR Has the patient had Daratumumab or Isatuximab in the past 6 months?->Unknown Mala Wagner NP LAB BLOOD BANK TEST ORDERABL ES Final Result Performing Organization Address [facility] Co de Phone Number [facility] [address] [facility] [place] [address] * ABO/Rh (05/12/2022 6:41 AM SEWING TECHNIQUES DEMONSTRATOR) ABO/Rh A Positive LUZ MARIA CRUZ Blood 05/12/2022 6:41 AM SEWING TECHNIQUES DEMONSTRATOR 05/12/2022 6:46 AM SEWING TECHNIQUES DEMONSTRATOR Narrative LUZ MARIA CRUZ - 05/12/2022 7:49 AM SEWING TECHNIQUES DEMONSTRATOR Has the patient had Daratumumab or Isatuximab in the past 6 months?->Unknown Mala Wagner NP LAB BLOOD BANK TEST ORDERABL ES Final Result Performing Organization Address [facility] de Phone Number [facility] [address] [facility] [employer] [place] [address] documented in this encounter Visit Diagnoses Diagnosis Primary osteoarthritis of left hip- Primary Primary osteoarthritis of left hip RUI on CPAP Class 2 obesity in adult Vitamin D deficiency Arthritis of left hip documented in this [...] Pre-Op, Indications: PainIndications:Pain Given 05/12/2022 6:38 AM SEWING TECHNIQUES DEMONSTRATOR 1,000 mg gabapentin (NEURONTIN) capsule 300 mg 300 mg, oral, Once, On Wed05/12/22 at 0645, For 1 dose, Pre-Op, Indications: PainIndications:Pain Given 05/12/2022 6:38 AM SEWING TECHNIQUES DEMONSTRATOR 300 mg HYDROcodone-acetaminophe n (NORCO) 5-325 mg per tablet 2 tablet 2 tablet, oral, Once as needed, 1st line for pain, Starting on Wed05/12/22 at 0934, For 1 dose, Phase I, Give 2 upon arrival to PACU as soon as able to take PO., Indications: PainIndications:Pain Given 05/12/2022 10:15 AM SEWING TECHNIQUES DEMONSTRATOR 2 tablets Lactated Ringer's (LR) bolus 1,000 mL 1,000 mL, intravenous, Once, On Wed05/12/22 at 0645, For 1 dose, Pre-Op New Bag 05/12/2022 6:37 AM SEWING TECHNIQUES DEMONSTRATOR 1,000 mL Lactated Ringer's (LR) bolus 500 [...] to floor. Rate/Dose Change 05/12/2022 9:27 AM SEWING TECHNIQUES DEMONSTRATOR 800 mL/hr Rate/Dose Verify 05/12/2022 7:35 AM SEWING TECHNIQUES DEMONSTRATOR 30 mL/h r New Bag 05/12/2022 6:43 AM SEWING TECHNIQUES DEMONSTRATOR 30 mL/hr 30 mL/hr meloxicam (MOBIC) tablet 15 mg 15 mg, oral, Once, On Wed05/12/22 at 0645, For 1 dose, Pre-Op, Indications: PainIndications:Pain Given 05/12/2022 6:40 AM SEWING TECHNIQUES DEMONSTRATOR 15 mg documented in this encounter Discontinued Medications Medication Sig Discontinue Reason Start Date End Da te naproxen (NAPROSYN) 375 mg tabletIndications:Anti- inflammatory Take 375 mg by mouth Stop Taking at Discharge 05/12/2022 documented as of this encounter Active and Recently Administered Medications Times are shown in SEWING TECHNIQUES DEMONSTRATOR. Scheduled Medication Order 05/10/2022 05/11/2022 05/12/2022 acetaminophen [...] (Given - Provid er: Johnathan Dunlap RN) ketorolac (TORADOL) 30 mg/mL (1 [...] Date acetaminophen (TYLENOL) tablet 500 mg 1 bupivacaine 0.5%-EPINEPHrine 1:200,000 PF 60 mL and ketorolac 30 mg solution 1 05/12/2022 ceFAZolin (ANCEF) 1 gram/10 mL in sterile water (premix) 2,000 mg 1 05/12/2022 ceFAZolin (ANCEF) 1 gram/10 mL in sterile water (premix) 3,000 mg 1 05/12/2022 ceFAZolin (ANCEF) 1,000 mg i n sodium chloride 0.9% 1,000 mL irrigation solution 1 05/12/2022 ceFAZolin (ANCEF) 3,000 mg i n sodium chloride 0.9% 3,000 mL irrigation solution 1 05/12/2022 dexAMETHasone (DECADRON) [...] chloride 0.9% flush 0.5-20 mL 1 04/30 tranexamic acid (CYKLOKAPRON ) 1,000 mg/100 mL [...] 05/12/2022 documented in this encounter Care Teams Packager Or Packer And Weigher Relationship Specialty Start Date End Date Johnnie Red MD [address] [id number] PCP - General Family Medicine 02/14/20 documented as of this encounter
--- OUTSIDE RECORDS SUMMARY | 2024-06-03 08:14 | XMS_ITS | Encounter Summary ---
Author Organization [facility] Home Care [facility] es Address [address] [place] [address] Phone Care Team Providers Care Fountain Manager Name Role Phone Johnnie Red MD Primary Care Provider [phone] Reason for Visit * Auth/Cert Specialty Diagnoses / Procedures Referred By Contac t Referred To Contact Referral ID Status Reason Start Date Expiration Date Visits Re quested Visits Authorized [id number] Encounter Details Date Type Department Care Team (Late st Contact Info) Description 05/29/2022 12:00 PM AUGER MACHINE OFFBEARER Home Care Visit [facility] [address] [place] [address] Nabila Patel, PT PT REASSESSMENT Social History Tobacco Use Types Packs/Day Years [...] Comments Blood Pressure 132/64 05/29/2022 11:34 AM AUGER MACHINE OFFBEARER Pulse 68 05/29/2022 11:34 AM AUGER MACHINE OFFBEARER Temperature 35.9 ??C (96.7 ??F) 05/29/2022 11:[address] Respiratory Rate 18 05/29/2022 11:34 AM AUGER MACHINE OFFBEARER Oxygen Saturation 98% 05/29/2022 11:34 AM AUGER MACHINE OFFBEARER Inhaled Oxygen Concentration - - Weight - - Height - - Body Mass Index - - documented in this encounter Miscellaneous Notes * Home Health Visit Narrative - Nabila Patel, PT - 05/29/2022 11:24 AM AUGER MACHINE OFFBEARER Pt is amb in the home using SPC at all times. Pt reports he walked outside yesterday morning and afterward had more soreness in the L groin, so cancelled PT visit. Pt reports he cont to elevate L LE and apply ice and reports pain dec to baseline this date -07/10 in the groin only. Pt reports has been able to go down the basement steps, he reports has been taking the steps one at a time as instructed, vs foot over foot. Prineo dressing to be removed by pt on 06/02. PT verbally instructed pt on removal of Prineo dressing and pt verb understanding. Pt to f/up w Dr. Colbret on 06/10. At this time pthas met all PT goals and is agreeable to DC. R MACHINE OFFBEARER documented in this encounter Plan of Treatment Not on file documented as of this encounter Visit Diagnoses Not on filedocumented in this encounter Home Health Visit - Care Plan Visit Details Visit Type -PT Reassessment Discipline -Physical Therapy Problems Problem Description Start [...] home health visit Disciplines: SN, PT, OT, HOUSECALLS NURSE, LARGE ANIMAL VETERINARIAN, Skilled Disciplines Monitor patient's vital signs every [...] visit during episode of care Description: Home welding pantograph operator to measure vital signs during every [...] pack/polar pack pad and monitor skin frequently. 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 Problem:PT Orthopedic Completed Edema Control and Correct Elevation/Positioning Description: Assess edema and instruct patient/caregiver on edema control and correct elevation/positioning of L LE Problem:PT Orthopedic Completed Home Exercise Program (HEP) Description: Instruct patient/caregiver and perform HEP. Problem:PT Orthopedic Completed PT instructed pt on HEP and performed supine: Ankle pumps, Heel slide, Hip abd/add x 15 reps ea L [employer] to 5s hold x 15 reps then Standing w B UE support performed Heel / toe raises, Hip abd, Hip flexion w knee flexion, Hamstring curls x 15 reps ea L LE Added R hip abd x 10 reps Pt reports mild pain in L ant. groin w standing activity / weightbearing, 07/10 however denies any inc pain w all therex PT instructed pt to cont HEP 2x/day; pt verb agreement Gait/Stair Training Description: Instruct patient/caregiver and perform gait/stair training. Problem:PT Orthopedic Completed Gait in home using SPC Pt demonstrates good pattern / sequencing Pt demo slight dec stance L Pt reports cont to have mild discomfort in L groin with gait / weightbearing, 07/10 this date He reports pain resolves as soon as he sits He denies any pain in the posterolat hip Instructed pt on basement steps using SPC and one UE support on handrail, w cueing to take steps nonreciprocal pattern vs foot over foot, pt demonstrates correct return Pt reports L groin pain 'the same as just walking', no increase PT recommended pt to cont to use SPC for all gait at this time to improve gait pattern and minimize pain in L groin w gait; pt verb agreement Bed Mobility/Transfer Training Description: Instruct patient/caregiver and perform bed mobility/transfer training. Problem:PT Orthopedic Completed Cryotherapy Description: Use of cold to L hip for pain relief. Instruct patient/caregiver in use of cold to L hip x 20 minutes, with 1 hour off between applications. Problem:PT Orthopedic Completed Therapeutic Exercise Description: Perform therapeutic exercise, progressing as tolerated. Problem:PT Orthopedic Completed See HEP comments documented in this encounter Care Teams Fountain Manager Relationship Specialty Start Date End Date Johnnie Red MD [address] [place] [address] PCP - General Family Medicine 02/14/20 documented as of this encounter
--- OUTSIDE RECORDS SUMMARY | 2024-06-03 08:14 | XMS_ITS | Encounter Summary ---
Author Organization [facility] Address [address] [place] [address] Phone Care Team Providers Care A/C Technician Name Role Phone Johnnie Red MD Primary Care Provider [phone] Reason for Visit * Auth/Cert Specialty Diagnoses / Procedures Referred By Contac t Referred To Contact Referral ID Status Reason Start Date Expiration Date Visits Re quested Visits Authorized [id number] Encounter Details Date Type Department Care Team (Late st Contact Info) Description 05/14/2022 Home Care Visit [facility] - [place] [address] [address] [place] [id number] Sofia Williamson, RN SBAR-START OF CARE/RESUMPTION Social History Tobacco Use Types Packs/Day Years [...] on filedocumented in this encounter Care Teams A/C Technician Relationship Specialty Start Date End Date Johnnie Red MD [address] [place] [address] PCP - General Family Medicine 02/14/20 documented as of this encounter
--- OUTSIDE RECORDS SUMMARY | 2024-06-03 08:14 | XMS_ITS | Encounter Summary ---
Author Organization [facility] Healthcare Address [address] [place] [address] Care Team Providers Care Rand Cementer Name Role Phone Johnnie Red MD Primary Care Provider [phone] Reason for Referral * Diagnostic Imaging (Routine) - Closed Specialty Diagnoses / Procedures Referred By Contac t Referred To Contact Diagnoses Orthopedic aftercare Procedures XR Hip Right 2 or 3 Views W Pelvis Claude Colbert MD [address] [address] Phone: tel: fax: [place] [address] [place] [address] Referral ID Status Reason Start Date Expiration Date Visits Re quested Visits Authorized [id number] Closed 06/24/2020 07/24/2021 1 1 CHANGER Reason for Visit * Diagnostic Imaging (Routine) - Closed Specialty Diagnoses / Procedures Referred By Contac t Referred To Contact Diagnoses Orthopedic aftercare Procedures XR Hip Right 2 or 3 Views W Pelvis Claude Colbert MD [address] [facility] [address] [place] [address] Phone: tel: fax: [place] [address] [place] [address] Referral ID Status Reason Start Date Expiration Date Visits Re quested Visits Authorized [id number] Closed 06/24/2020 07/24/2021 1 1 Encounter Details Date Type Department Care Team (Latest Contact Info) Description 07/08/2020 7:15 AM ACID CHANGER - 07/08/2020 11:59 PM ACID CHANGER Hospital Encounter [id number] [address] [facility] [address] [place] [address] Claude Colbert MD [address] [place] [address] Orthopedic aftercare Discharge Disposition: Discharge to home [...] total) by mouth as needed for allergies mometasone (NASONEX) 50 mcg/actuation nasal sprayIndications :Allergic Rhinitis Administer 2 sprays into each nostril as needed aspirin 325 mg enteric coated tabletIndication s:Deep [...] for diarrhea. 80 tablet 1 05/23/2020 2 documented as of this encounter Discharge Disposition Disposition Code Departure Means Destination Discharge to home or self care documented in this encounter Plan of Treatment Not on file documented as of this encounter Procedures Procedure Name Priority Date/Time Associated Diagnosis Comments XR HIP RIGHT W PELVIS 2 OR 3 VIEWS Schedule Routine, Read Routine (OP Routine) 07/08/2020 7:43 AM ACID CHANGER Orthopedic aftercare documented in this encounter Results * XR Hip Right 2 or 3 Views W Pelvis (07/08/2020 7:43 AM ACID CHANGER) Anatomical Region Laterality Modality Lower Extremities, Hip, Pelvis Right C omputed Radiography 07/08/2020 7:45 AM ACID CHANGER Impressions 07/08/2020 7:45 AM ACID CHANGER Unchanged total right hip arthroplasty in near-anatomic position. Electronically signed by: Darwin Parnell M.D. Narrative 07/08/2020 7:45 AM ACID CHANGER EXAMINATION: XR HIP RIGHT 2 OR 3 [...] aftercare documented in this encounter Care Teams Rand Cementer Relationship Specialty Start Date End Date Neda, Johnnie L., MD [address] [place] [address] PCP - General Family Medicine 02/14/20 documented as of this encounter
--- OUTSIDE RECORDS SUMMARY | 2024-06-03 08:14 | XMS_ITS | Encounter Summary ---
Author Organization [facility] Address [address] [place] [address] Phone Care Team Providers Care Gang Supervisor Name Role Phone Johnnie Red MD Primary Care Provider [phone] Reason for Referral * Diagnostic Imaging (Routine) - Closed Specialty Diagnoses / Procedures Referred By Rowdy carrillo Referred To Contact Diagnoses Left hip pain Procedures XR Hip Left 2 or 3 Views W Pelvis Claude Colbert MD [address] [place] [address] Phone: tel: fax: [address] [address] Referral ID Status Reason Start Date Expiration Date Visits Re quested Visits Authorized [id number] Closed 01/28/2022 02/27/2023 1 1 Reason for Visit * Reason Comments Pain Encounter Details Date Type Department Care Team (Late st Contact Info) Description 02/04/2022 1:20 PM CDT Office Visit [facility] Orthopaedic Surgery [facility] [address] [place] [id number] Claude Colbert MD [address] [place] [address] Left hip pain (Primary Dx); Prophylactic antibiotic; Unilateral primary osteoarthritis, left hip Social History Tobacco Use Types [...] Date End Date mupirocin (BACTROBAN) 2 % ointmentIndication s:Prophylactic antibiotic Apply topically 2 (two) times a day for 5 days APPLY TO NOSTRILS TWICE A DAY FOR 5 DAYS PRIOR TO SURGERY. 22 g 02/04/2022 documented in this encounter Progress Notes * Karishma Flores RN - 02/04/2022 1:20 PM CDT Patient Information Patient Name: Norman Lane Gender: male Date of : 1965 Age: 57 y.o. (home) Procedure: L AWILDA OR Date: 05-12-22 OR Location: [facility] Joint Lead Press Operator Name: Telephone: PCP: Johnnie Red MD When was you last visit: Pre-Op Scheduling Anesthesia: Spinal Preferred Blood Requirements: 0 units Consents: Surgery procedure consent obtained. Blood transfusion consent obtained. Preadmission Testing/Anesthesia H&P: Date: 04-21-22 Time: 729 Pre-Op Joint Class Scheduled for: Date: 02-04-22 Time: PreHab Rx given to Patient: n/a Faxed to: Doppler: n/a Date: Time: Pre-Op Meds/Anticoag: Instructed to stop primary prevention ASA/hormones/supplements 7 Days prior to surgery Instructed to stop NSAIDS 5 days prior to surgery Anticoagulation protocol discussed: yes ASA/Active Care Pumps 10 days Decolonization Instructions: yes Skin preparations guide Mupirocin Rx Prescription for Celebrex No N/A The patient was given a AWILDA teaching packet including surgery guidelines with instructions, DECOL protocol instructions, instructions to stop all NSAID's, Blood thinners and aspirin products one weekbefore surgery, as well as office contacts to call if they have any additional questions prior to their surgery date. Current Outpatient Medications: celecoxib (CeleBREX) 200 mg capsule, Take 1 tablet twice daily after surgery until prescription is finished. You should already have this prescription at home. Start on morning of 05/24/2020., Disp: 10 capsule, Rfl: 0 cetirizine (ZyrTEC) 10 mg tablet, Take 10 mg by mouth as needed for allergies, Disp: , Rfl: mometasone (NASONEX) 50 mcg/actuation nasal spray, Administer 2 sprays into each nostril as needed,Disp: , Rfl: SSD 1 % cream, APPLY TWICE DAILY TO AFFECTED AREA UNTIL CLEAR, Disp: , Rfl: aspirin 325 mg enteric coated tablet, Take 1 tablet (325 mg total) by mouth 2 (two) times a day, Disp: 84 tablet, Rfl: 0 HYDROcodone-acetaminophen (NORCO) 5-325 mg per tablet, Take 1-2 tablets by mouth every 4 (four) hours as needed for pain (Patient not taking: No sig reported), Disp: 56 tablet, Rfl: 0 senna-docusate (PERICOLACE) 8.6-50 mg, Take 2 tablets by mouth 2 (two) times a day May increase to 4 tablets twice daily if needed. HOLD medication for diarrhea. (Patient not taking: No sig reported), Disp: 80 tablet, Rfl: 1 He has No Known Allergies. Risk Assessment RUI RISK: N/A STOP BANG Score: CMP(CO2): Sleep Study: CPAP/BIPAP: N/A Bone Health screen - Vitamin D Level Ordered: N/A N/A Oral Health: Healthy teeth Smoking History: No Family History of DVT/PE: N/A He reports that he has never smoked. He has never used smokeless tobacco. He reports that he does not use drugs. No alcohol history on file. 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: Live in available day/night In a: Home Home Accessibility: Stairs Home Environment: Entry Steps: no Bedroom Location: 1st Floor Bathroom Location:1st Floor What Medical Devices/Equipment used: n/a Are you able to self-manage activities of daily living: ADL's: Bathing, Dressing, Self-feeding, Personal Hygiene, and Toilet Hygiene IADL's: Housework, Medications, Managing Money, Shopping, and Telephone Transportation: Self Pre-Op Ambulation: Independent Community distances Projected Post-Op Weight bearing: Full or WBAT Home Location: < 150 miles RAPT: What is your age group?: Gender: How far on average can you walk? (a block is 200 meters): Which gait aid do you use most? (more often than not): Do you use community supports? (home-help, meals on wheels, district nursing): Will you live with someone who can care for you after your operation?: RAPT Total Score: (If <9 send to [facility]'s floor care team for review) (If <6 Pre-Op SW Consult) CHENG: Destination at discharge from acute care predicted by score: Scores <6 facility placement Scores 6-9 directly home after additional acute intervention Scores >9 directly home Patient's expectation of discharge destination is also a determinant. The prediction indicated by the score is discussed with the patient and the destination agreed to. Patient's preference: Home Agreed destination: Home with < 5 Home Health visits Social Work Referral: n/a Potential Rehab/SNF Candidate: n/a RRAT Infection Risk Factors: Is patient positive for MRSA colonization at CPAP?: Every Patient is decolonized per guideline. - Nasal Mupirocin (Bid x5 days pre-op) or povidone-iodine (DOS) and chlorhexidine gluconate (CHG) showers (QD x5 days prior to surgery & morning of surgery) and appropriate antibiotic coverage. - If these requirements are not met then HARD STOP until protocol implemented. Smoking (Tobacco Use): Current Smoker? Obesity: What is the patient's BMI? Cardiovascular Disease: Patient has a history of Coronary Artery Disease (CAD), stroke, Peripheral Vascular Disease or VTED, is 60 years of age or older and has at least 2 cardiac risk factors: Venous Thromboembolic Disease: Does the patient have a history of Pulmonary Embolus or Deep Vein Thrombosis? Does the patient have any of the following VTED risk factors: CVA, COPD, BMI>30, CAD, Stroke, PVD, or Activated Protein C Resistance? Neurocognitive, Psychological and Behavioral Problems (including alcohol and drug dependency): Does the patient have a history of alcohol abuse or chronic active narcotic dependency? Does the patient have any neurocognitive deficits such as traumatic brain injury (TBI)l active psychiatric illness, dementia, etc? Was the patient's last calculated PROMIS depression score greater than or equal to 60? Physical Deconditioning: Patient is nonambulatory or needs assistance with transfer status? Patient has comorbidities affecting physical function and ambulation? Diabetes: Is the patient diabetic? Last calculated Fasting Blood Glucose > 180 mg/dl? Last calculated Hgb A1c > 8? Is DM well controlled? RRAT Total Score: Recommendations for Preoperative Care/Optimization: < 2 Proceed with Scheduling Surgery. Karishma Flores RN * Claude Colbert MD - 02/04/2022 1:20 PM CDT Images from the original note were not included. NEW HIP PATIENT VISIT CHIEF COMPLAINT: left hip pain. HISTORY OF PRESENT ILLNESS: Norman Lane is a 57 y.o. male with left hip pain. he has had pain for years. It is located groin. Itis worse with activity. He takes rest for pain. He has had corticosteroid or hyaluronate injection with limited benefit. He has had physical therapy or structured exercise in the past year. The problem is getting worse. and is interfering with normal ADL. Of note he has a history of right total hip arthroplasty with Dr. Colbert back in April of 2020. His left has been bothering him for years but worse the past 6 months. He has had pain with sitting as well standing. Mccray Hip Score: LEFT HIP PAIN: Moderate LIMP: Slight SUPPORT: DISTANCE: None STAIRS: Blocks SITTING: [place] SHOES/SOCKS: Difficult PUBLIC TRANSPORTATION: YEst RIGHT HIP PAIN: None LIMP: NOne SUPPORT: None DISTANCE: Unlimited STAIRS: Yes SITTIN hour SHOES/SOCKS: Easy PUBLIC TRANSPORTATION: Yes PAST MEDICAL HISTORY: Past Medical History: Diagnosis Date Allergic rhinitis Osteoarthritis Sleep apnea cpap PAST SURGICAL HISTORY: Past Surgical History: Procedure Laterality Date COLONOSCOPY MEDICATIONS: Current Outpatient Medications: celecoxib (CeleBREX) 200 mg capsule, Take 1 tablet twice daily after surgery until prescription is finished. You should already have this prescription at home. Start on morning of 05/24/2020., Disp: 10 capsule, Rfl: 0 cetirizine (ZyrTEC) 10 mg tablet, Take 10 mg by mouth as needed for allergies, Disp: , Rfl: mometasone (NASONEX) 50 mcg/actuation nasal spray, Administer 2 sprays into each nostril as needed,Disp: , Rfl: SSD 1 % cream, APPLY TWICE DAILY TO AFFECTED AREA UNTIL CLEAR, Disp: , Rfl: aspirin 325 mg enteric coated tablet, Take 1 tablet (325 mg total) by mouth 2 (two) times a day, Disp: 84 tablet, Rfl: 0 HYDROcodone-acetaminophen (NORCO) 5-325 mg per tablet, Take 1-2 tablets by mouth every 4 (four) hours as needed for pain (Patient not taking: No sig reported), Disp: 56 tablet, Rfl: 0 mupirocin (BACTROBAN) 2 % ointment, Apply topically 2 (two) times a day for 5 days APPLY TO NOSTRILS TWICE A DAY FOR 5 DAYS PRIOR TO SURGERY., Disp: 22 g, Rfl: 0 senna-docusate (PERICOLACE) 8.6-50 mg, Take 2 tablets by mouth 2 (two) times a day May increase to 4 tablets twice daily if needed. HOLD medication for diarrhea. (Patient not taking: No sig reported), Disp: 80 tablet, Rfl: 1 ALLERGIES: No Known Allergies SOCIAL HISTORY: Social History Tobacco Use Smoking status: Never Smokeless tobacco: Never Substance and Sexual Activity Drug use: Never Sexual activity: Defer Alcohol Use: Not on file FAMILY HISTORY: Family History Problem Relation Age of Onset Coronary artery disease Father Anesthesia problems Neg Hx ROS: 10 systems reviewed. Significant findings include left hip pain PHYSICAL EXAM: Height: Weight: BMI: There is no height or weight on file to calculate BMI. Left Hip Hip Pain is noted: groin Skin Status: intact Trendelenberg: none Range of Motion: Start of flexion: 0 End of flexion: 90 ERF: 45 IRF: 10 Deformity: none Leg Length Discrepancy: equal Abductor Strength: 5/5 Dependent Edema: none Vascular status: palpable pulses distally Neurological Status: intact to light touch and gross motor RADIOGRAPHS: X-rays obtained today show rectal of arthroplasty implants with no evidence of loosening, subsidence, or change in alignment. Left hip with is moderate to severe osteoarthritis with joint space narrowing, osteophyte formation, subchondral sclerosis and cysts. DIAGNOSES: Left hip osteoarthritis IMPRESSION: This patient has pain of the left hip which is impacting daily activities significantly. I reviewedthe treatment options, including activity modification, weight loss, physical therapy, analgesic and anti-inflammatories, steroid injections, bracing, cooled radiofrequency, and finally hip replacement. I had a long discussion with the patient concerning operative treatment. The patient is a candidatefor left THR. Risks and benefits of surgery were discussed including but not limited to risk of , infection, issues of wound healing including chronic drainage that cannot be resolved, persistent and/or unexplained pain, thromboembolic incident, anesthetic complications, and possible medical complications. Implant-related problems were also mentioned and can include leg length inequality potentially requiring shoe lift, component loosening, instability, dislocation, or wear of the implant,which may require revision surgery. The possibility of neurovascular injury including numbness, paralysis, or possible amputation was described. Also discussed was the expected post-operative convalescence and rehabilitation which generally allows return to basic activity within 3 months, depending on individual factors, and return to peak performance usually by 12 to 18 months. Ultimate performance objectives and limitations were also discussed. Implants shown. All questions were answered. The patient expresses an understanding of our conversation and wishes to proceed with the recommended surgery. All questions were answered. PLAN: In review, the patient is a good candidate for left arthroplasty at the patient's convenience. Preoperative risk assessment by the Anesthesia at [facility]. Simone Guerra MD Clinical Fellow, Adult Reconstruction and Hip Preservation ATTENDING ATTESTATION I was present for the critical portion of the history, physical examination and participated in theradiographic review and medical decision making on this patient. I agree with the findings in the report of the above resident/fellow dictating using Fluency Direct software. Claude Colbert MD documented in this encounter Plan of Treatment [...] and agrees with it. Electronically signed by: Barirngton Veras MD Narrative 02/04/2022 9:09 AM CDT [...] Pain in joint, pelvic region and thigh Prophylactic antibiotic Encounter for long-term (current) use of antibiotics Unilateral primary osteoarthritis, left hip Left hip pain Pain in joint, pelvic region and thigh documented in this encounter Historical Medications * This list may reflect changes made after this encounter. SSD 1 % cream APPLY TWICE DAILY TO AFFECTED AREA UNTIL CLEAR 10/31/2021 04/27/2022 added in this encounter Care Teams Gang Supervisor Relationship Specialty Start Date End Date Johnnie Red MD [address] [place] [address] PCP - General Family Medicine 02/14/20 documented as of this encounter
--- OUTSIDE RECORDS SUMMARY | 2024-06-03 08:14 | XMS_ITS | Encounter Summary ---
Author Organization [facility] Address [address] [place] [address] Phone Care Team Providers Care Hair Tinter Name Role Phone Johnnie Red MD Primary Care Provider [phone] Encounter Details Date Type Department Care Team (Late st Contact Info) Description 05/14/2022 Plan of Care Documentation [facility] [address] [address] [address] [place] [address] Social History Tobacco Use Types Packs/Day Years [...] on filedocumented in this encounter Care Teams Hair Tinter Relationship Specialty Start Date End Date Johnnie Red MD [address] [place] [id number] PCP - General Family Medicine 02/14/20 documented as of this encounter
--- OUTSIDE RECORDS SUMMARY | 2024-06-03 08:14 | XMS_ITS | Encounter Summary ---
Author Organization [facility] Address [address] [place] [address] Phone Care Team Providers Care Physical Therapy Aides Teacher Name Role Phone Johnnie Red MD Primary Care Provider [phone] Reason for Visit * Reason Comments Hip Problem * Auth/Cert Specialty Diagnoses / Procedures Referred By Rowdy t Referred To Contact Referral ID Status Reason Start Date Expiration Date Visits Re quested Visits Authorized [id number] [phone] Encounter Details Date Type Department Care Team (Late st Contact Info) Description 05/22/2022 11:00 AM ASSEMBLER TRACTOR Home Care Visit [facility] [address] [address] [address] [place] [address] Karmen Conde PTA PT HOME [...] Sign Reading Time Taken Comments Blood Pressure 150/60 05/22/2022 11:24 AM ASSEMBLER TRACTOR Pulse 104 05/22/2022 11:24 AM ASSEMBLER TRACTOR Temperature 35.7 ??C (96.3 ??F) 05/22/2022 11:[address] Respiratory Rate 18 05/22/2022 11:24 AM ASSEMBLER TRACTOR Oxygen Saturation 93% 05/22/2022 11:24 AM ASSEMBLER TRACTOR Inhaled Oxygen Concentration - - Weight - - Height - - Body Mass Index - - documented in this encounter Miscellaneous Notes * Home Health Plan for Next Visit - Karmen Conde PTA - 05/22/2022 11:33 AM CST Reason for today's visit to progress with steps, gait with cane Discuss plan of care with pt Discharge planning next 2 weeks Plan for next visit to discuss DC pt instructed to perform up and down steps one step at a time vs foot over foot and to cont with post op hip precautions pt is agreeable with poc MBLER TRACTOR documented in this encounter Plan of Treatment [...] home health visit Disciplines: SN, PT, OT, BOMB LOADER, PSYCHIATRIC NURSING AIDE, Skilled Disciplines Monitor patient's vital signs every [...] visit during episode of care Description: Home pad making machine operator to measure vital signs during [...] pack/polar pack pad and monitor skin frequently. Problem:Patient/caregivers homecare Total Joint Education Goal:Verbalize Knowledge of Joint Education Completed Total hip precautions and positioning Description: Instruct patient/caregiver in total hip precautions and positioning. Problem:Patient/caregivers homecare Total Joint Education Goal:Verbalize Knowledge of Joint Education Completed Instruct patient/caregiver in total hip precautions and positioning. pt has tendency to cross past midline when performing hip add cues not to go past midline or to flex past 90 degrees when sitting Instruct on pain management techniques Description: Instruct in pharmacologic and nonpharmacologic pain management techniques. Problem:Physical Discomfort Goal:Physical Discomfort Completed takes pain meds as needed Homebound Status Description: Patient is homebound due [...] and perform HEP. Problem:PT Orthopedic Completed while the pt was supine performed 10-15 reps each of anklepumping, quad sets holding 3 seconds, glut sets, hip abd/add with cues to engage quad before completing then heelslides pt did perform slr x 10 reps of each 10 reps of laqs with cues to hold 3 seconds then standing heel toe raises, hip abd/add and hamstring curls today added hip abd and hamstring curls each leg to work on increasing stance on the left leg updated HEP Gait/Stair Training Description: Instruct patient/caregiver and perform gait/stair training. Problem:PT Orthopedic Completed gait with straight cane in the home for 100 ft with slight decrease in hip flexion with knee flexion and stance on the left. instructed pt on up and down basement steps to perform single foot at a time pt reports he has been performing foot over foot Bed Mobility/Transfer Training Description: Instruct patient/caregiver and perform bed mobility/transfer training. Problem:PT Orthopedic Completed sit to from stand with cues to maintain 90 degree hip precaution supine to from sit on his own does lift the left leg in and out bed without ue assist Cryotherapy Description: Use of cold to L hip for pain relief. Instruct patient/caregiver in use of cold to L hip x 20 minutes, with 1 hour off between applications. Problem:PT Orthopedic Completed Therapeutic Exercise Description: Perform therapeutic exercise, progressing as tolerated. Problem:PT Orthopedic Completed see HEP comments documented in this encounter Care Teams Physical Therapy Aides Teacher Relationship Specialty Start Date End Date Johnnie Red MD [address] [place] [address] PCP - General Family Medicine 02/14/20 documented as of this encounter
--- OUTSIDE RECORDS SUMMARY | 2024-06-03 08:15 | XMS_ITS | Encounter Summary ---
Author Organization [facility] Healthcare Address [address] [place] [address] Care Team Providers Care Manager Camp Name Role Phone Johnnie Red MD Primary Care Provider [phone] Encounter Details Date Type Department Care Team (Latest Contact Info) Description 05/23/2020 5:04 AM SUPERVISORY CLERK - 05/23/2020 12:33 PM SUPERVISORY CLERK Hospital Encounter [facility] Operating Room [address] [place] [address] Claude Colbert MD [address] [facility] [address] [place] [address] Primary osteoarthritis of right hip (Primary Dx); Right hip pain Discharge Disposition: Discharge to home, home health skilled care Social History Tobacco Use Types Packs/Day [...] Sign Reading Time Taken Comments Blood Pressure 135/83 05/23/2020 11:00 AM SUPERVISORY CLERK Pulse 76 05/23/2020 12:30 PM SUPERVISORY CLERK Temperature 36.4 ??C (97.5 ??F) 05/23/2020 12:[address] Respiratory Rate 18 05/23/2020 12:30 PM SUPERVISORY CLERK Oxygen Saturation 97% 05/23/2020 11:15 AM SUPERVISORY CLERK Inhaled Oxygen Concentration - - Weight - - Height - - Body Mass Index - - documented in this encounter Discharge Diagnoses Diagnosis Unilateral primary osteoarthritis, right hip - UNILATERAL PRIMARY OSTEOARTHRITIS, RIGHT HIP Obstructive sleep apnea (adult) (pediatric) - OBSTRUCTIVE SLEEP APNEA (ADULT) (PEDIATRIC) Obesity, unspecified - OBESITY, UNSPECIFIED 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) use of non-steroidal anti-inflammatories (nsaid) - [facility] (CURRENT) USE OF NON-STEROIDAL ANTI-INFLAMMATORIES (NSAID) documented in this encounter Discharge Summaries * Bruna Robledo NP - 05/23/2020 10:04 AM CST Inpatient Discharge Summary Admitting Provider: Claude Colbert MD Discharge Provider: Claude Colbert MD Primary Care Physician at Discharge: Johnnie Red MD [phone] Admission Date: 05/23/2020 Discharge Date: 05/23/2020 Primary Discharge Diagnosis: Primary osteoarthritis of right hip Secondary Discharge Diagnosis: Principal Problem: Primary osteoarthritis of right hip Active Problems: RUI on CPAP Class 2 obesity in adult Resolved Problems: No resolved hospital problems. DETAILS OF HOSPITAL STAY Date of Admission: 05/23/2020 Date of Discharge: 05/23/2020 Procedure Performed: Right Primary Total Hip Arthroplasty Chief Complaint: Right hip pain History of Present Illness: The patient is a 55 y.o. year old male cared for by Dr. Claude Colbert. The risks, benefits, alternatives and complications of a right primary total hip arthroplasty was discussed with the patient at length prior to surgery. The patient elected to proceed with a surgical intervention given the significant influence on their quality of life. Informed consent was obtained prior to surgery. Physical Exam: On the day of discharge, the patient was afebrile with stable vital signs. Examination of the rightlower extremity revealed the patient was neurovascularly intact. Incision was clean, dry and intact. Pain was adequately maintained on oral opiates. Hospital Course: The patient was admitted on 05/23/2020 and underwent a right primary total hip arthroplasty. The patient tolerated the procedure well and was taken in stable condition to the postoperative recovery room then transferred to the orthopedic floor in stable condition. The patient progressed well and was able to be weaned off IV opiates. The patient participated with physical and occupational therapy and was deemed stable for discharge. He was maintained on Aspirin for deep venous thrombosis prophylaxis. Pain was adequately maintained on oral opiates. The patient was discharged in stable condition to home with home health care on 05/23/2020. Discharge Medications: Norman Lane Home Medication Instructions OSEAS:[id number] Printed on:05/23/20 1157 Medication Information aspirin 325 mg enteric coated tablet Take 1 tablet (325 mg total) by mouth 2 (two) times a day celecoxib (CeleBREX) 200 mg capsule Take 1 tablet twice daily after surgery until prescription is finished. You should already have this prescription at home. Start on morning of 05/24/2020. cetirizine (ZyrTEC) 10 mg tablet Take 10 mg by mouth as needed for allergies HYDROcodone-acetaminophen (NORCO) 5-325 mg per tablet Take 1-2 tablets by mouth every 4 (four) hours as needed for pain mometasone (NASONEX) 50 mcg/actuation nasal spray Administer 2 sprays into each nostril as needed senna-docusate (PERICOLACE) 8.6-50 mg Take 2 tablets by mouth 2 (two) times a day May increase to 4 tablets twice daily if needed. HOLD medication for diarrhea. Discharge Activity: 1. Weight bearing: Weight bearing as tolerated right lower extremity 2. Assistive Devices: Walker or crutches for all walking 3. Hip Precautions: Posterior Hip Precautions for 6 weeks 4. DVT prophylaxis: Aspirin twice daily for 6 weeks Discharge Diet: Resume previous diet Follow-up: Dr. Claude Colbert on 07/08/2020 at 7:30am at [facility], [address] [place] [address], Medical Office Building [address], [address] [address]. Condition on Discharge: Stable Cosigned by Claude Colbert MD at 05/28/2020 6:18 AM SUPERVISORY CLERK RVISORY CLERK RVISORY CLERK documented in this encounter Discharge Instructions * Discharge Instr - Other Orders* Elsie Victoria RN - 05/23/2020 10:43 AM SUPERVISORY CLERK HOME HEALTH AGENCY: [facility] for RN and PT services RVISORY CLERK documented in this encounter Medications at Time [...] 05/23/2020 2 documented as of this encounter Ordered Prescriptions Prescription Sig Dispense Quantity Refills Last Filled Start Date End Date HYDROcodone-acetam inophen (NORCO) 5-325 mg per tabletIndications: Pain Take 1-2 tablets by mouth every 4 (four) hours as needed for pain 56 tablet 05/23/2020 2 senna-docusate (PERICOLACE) 8.6-50 mgIndications:cons tipation Take 2 tablets by mouth 2 (two) times a day May increase to 4 tablets twice daily if needed. HOLD medication for diarrhea. 80 tablet 1 05/23/2020 2 aspirin 325 mg enteric coated tabletIndications: Deep Vein Thrombosis Prevention Take 1 tablet (325 mg total) by mouth 2 (two) times a day 84 tablet 05/23/2020 2 documented in this encounter Discharge Disposition Disposition Code Departure Means Destination Discharge to home, home health skilled care documented in this encounter Progress Notes * Elsie Victoria RN - 05/23/2020 10:44 AM CST 05/23/20 1044 Communications Patient choice (Home Health/Hospice) list given to patient/architectural representative? Yes Home health arranged through [facility] for RN and PT services . Discussed with the patient and he is in agreement with the plan. RVISORY CLERK * Padma Ramírez RN - 05/22/2020 10:21 AM CST CM Initial Assessment Interview Note Information Obtained From: (P) Patient (05/22/20 1020) Admission Source: pre-op Impression: NAD Plan Includes: home with HH ass't Primary Source of Transportation: car/spouse Health Insurance Coverage: see summary Prescription Coverage: Y Pharmacy: [facility] in [place] Primary Care Provider: Johnnie Red MD Prior to Admission: Primary Caregiver: (P) Self Support System: (P) Spouse/Significant Other Support system contact info (name, phone, availablity): (P) Hannah mejia [phone] Home Care Services: (P) No Durable Medical Equipment: (P) CPAP/Bi-PAP Living Arrangements: (P) Spouse/significant other Type of Residence: (P) Private residence Steps in home? : (P) Yes, Outside of home Number of steps outside:: (P) 2 steps (05/22/20 1020) Potential discharge needs include: (P) detention, Physical therapy, (05/22/20 1020) Dialysis: Dialysis: (P) No (05/22/20 1020) Behavioral Health Services: Behavioral Health Services: (P) No (05/22/20 1020) Patient expects to be Discharged to: (P) Private residence, (05/22/20 1020) Additional Information: Patient does not have a HH agency preference. Patient will not need a walker. Instructed to bring it to the hospital. Has no home going concerns at this time. Patient's Identified Problem/Goal Problem: Ensure acute medical needs are met and that patient has a safe discharge plan. Goal: Secure a discharge plan that patient/family are agreeable with and ensure patient has continuum of care. Case management will follow for discharge planning and send referrals as needed. Goals include: To assure continuity of care, To maximize coping skills, To assure patient is in a safe environment and To assure access to community resources. Plan includes: 1. Collaboration with patient, MD, direct care nurse, Topology Professor, and other members of the health care team to assure needed interventions completed. 2. Return patient to optimal level of self-care post discharge. 3. Corrections Nurse will follow for Discharge Planning - interventions as needed 4. Anticipated level of care at discharge 5. Planned Discharge Disposition Based on a comprehensive family assessment, assistance with instrumental activities of daily livingafter discharge will be provided by spouse, Hannah Through the course of our work I determined that the spouse possesses the skill and ability to provide and monitor the care of the patient when he or she returns home. Hannah has the capacity to provide/monitor/arrange for the care of the patient. Finally, we determined that Hannah has the knowledge of available resources and that combining them with their existing resources will suffice to sustainand care for the patient when he or she returns home. The treatment team is aware of this information. All are in agreement with the aftercare plan. Interviewed via phone. Padma Ramírez RN RVISORY CLERK documented in this encounter H&P Notes * Claude Colbert MD - 05/23/2020 5:58 AM CST I have reviewed the H&P, examined the patient, and endorse the findings as written. Plan of Care : Based on the above findings, I consider Norman Lane to be an acceptable risk for : Procedure(s): ARTHROPLASTY RIGHT TOTAL HIP - DEPUY RVISORY CLERK Source Note - Marisa Crisostomo NP - 05/20/2020 7:32 AM SUPERVISORY CLERK Images from the original note were not included. [facility] for Preoperative Assessment and Planning Preoperative Evaluation Record Evaluation type/location: CPAP [facility] Planned procedure site: [facility] OR Date: 05/20/[address] is a 55 y.o. male Procedure(s): ARTHROPLASTY RIGHT TOTAL HIP - DEPUY Pre-Op Diagnosis Codes: * Primary osteoarthritis of right hip [M16.11] HISTORY HPI Norman Lane is a 55 year old male who is being evaluated prior to undergoing arthroplasty right total hip for primary OA. He has had pain for 1 year. It is located in the groin and lateral. It is worse with walking for any distance. He takes meloxicam for pain. He has had corticosteroid or hyaluronate injection with limited benefit. He has had physical therapy or structured exercise in the past year. The problem is getting worse. and is interfering with normal ADL. ?? Past Medical History Information obtained from: patient and chart. Neurological Pertinent negatives: seizures; neuromuscular disease; CVA/stroke; TIA; CEA; ICA stenosis; dementia/mild cognitive impairment and carotid artery stent Cardiovascular Pertinent negatives: hypertension ; CAD ; MT ; CABG ; valvular heart disease; valve replacement; atrial fibrillation; arrhythmia; pacemaker/ICD; PVD; DVT/PE; negative for CHF; drug-eluting stent(s); bare metal stent(s) and coronary angioplasty Respiratory + Sleep apnea (RUI) Prescribed device: CPAP and PAP compliant. Pertinent negatives: COPD; asthma; pulmonary hypertension; no O2 use outside the hospital and non-smoker Hepatic / Heme Pertinent negatives: liver disease; history of anemia; history of thrombocytopenia and history of Faby positive Gastrointestinal Pertinent negatives: GERD and hiatal hernia Renal / Pertinent negatives: renal disease; dialysis and nephrolithiasis Musculoskeletal/Pain + Osteoarthritis (samara hips) Pertinent negatives: chronic pain; chronic opioid use and previous treatment for opioid use disorder Endocrine / Other + Obesity (BMI >30) + Infectious disease (Covid antibody positive per pt) Pertinent negatives: diabetes mellitus; thyroid disease; cancer history; rheumatological disease and transplanted organ Functional Capacity Functional capacity: 4-6 METs Comments: Able to climb 2 flights of stairs and walk 4 level blocks without chest pain or shortnessof breath Able to lie flat and breathe easily Review of Systems + vision loss (glasses) Pertinent negatives: productive cough; wheezing; SOB; recent cold/flu; fever; chest pain; palpitations; orthopnea; pedal edema; PND; Sickle Cell disease/trait; previous transfusion; transfusion reaction; melena/hematochezia; easy bruising; bleeding problems; syncope; dizziness; muscle weakness; chronic pain; numbness/tingling; hard of hearing; heartburn; nausea; dysphagia; diarrhea; dentures/partials; abdominal pain; diaphoresis and no unexpected weight changeChipped teeth: recently completed PCN for dental work, asymptomatic, teeth intact. Comments: Allergic rhinitis stable on meds Impaired sense of taste about 1 month ago with no other symptoms - antibody testing OSH was positive per patient. PAT Summary and Plans Cardiac risk classification of planned procedure: intermediate cardiac risk. Preoperative assessment status: complete pending laboratory results. Additional comments: Norman Lane is a 55 y.o. male who is being evaluated prior to undergoing an intermediate cardiac risk surgery. Revised Cardiac Risk Index factors are (none) for a total RCRI of 0 out of 6. Functional capacity is 4-6 METs. Obstructive sleep apnea (RUI) screening status is HIGH RISK due to known RUI. Orders placed. Blood bank needs for day of procedure: No type and screen needed Pending labs/tests include: CBC CMP Vitamin D Patient with No known exposure to COVID19 and no concerning symptoms of COVID19. Plan for pre-procedure COVID19 testing: Surgery date within 4 days. Pre- procedure COVID19 testing performed at [facility]. Result pending- to be reviewed by surgeon's office. . Preoperative evaluation performed by Anna De Los Santos NP on 05/20/20 at 7:34 AM. . Follow up note Labs reviewed and are without significant findings. Surgeon's office reviews laboratory results independently. CPAP process complete. Follow-up completed by: Marisa Crisostomo NP on 05/21/20 at 11:42 AM Patient Active Problem List Diagnosis ??? Primary osteoarthritis of right hip No past medical history on file. No past surgical history on file. No Known Allergies Taking? Last Dose Start Date End Date Provider celecoxib (CeleBREX) 200 mg capsule 05/16/20 -- Claude Colbert MD TAKE 2 PILLS WITH BREAKFAST THE DAY BEFORE SX. TAKE 1 PILL BID AFTER DISCHARGE. chlorhexidine (HIBICLENS) 4 % external liquid 05/16/20 -- Claude Colbert MD Use 1/4 cup of soap with daily showers starting 5 days before surgery, last shower is the morning of surgery mupirocin (BACTROBAN) 2 % ointment 05/16/20 05/21/20 Claude Colbert MD Apply topically 2 (two) times a day for 5 days APPLY TO NOSTRILS TWICE A DAY FOR 5 DAYS PRIOR TO SURGERY. Current Outpatient Medications: ??? celecoxib (CeleBREX) 200 mg capsule ??? chlorhexidine (HIBICLENS) 4 % external liquid ??? mupirocin (BACTROBAN) 2 % ointment Social History Tobacco Use Smoking Status Never Smoker Substance and Sexual Activity Alcohol Use Not on file Substance and Sexual Activity Drug Use Not on file No family history on file. PAT Physical Exam Airway Exam: Mallampati: III Cervical ROM: FROM TM distance: 3.5 Cardiovascular Exam: Rate: regular Rhythm: regular Negative for Murmur Negative for peripheral edema Pulmonary Exam: LCTA, bilat EENT Exam: trachea midline Dental Exam: Appears intact Skin Exam: Skin is warm and dry. Capillary refill is < 3 seconds. Turgor is normal. Abdominal exam: Abdomen is soft. Bowel sounds are present. Current state: Patient's current state is cooperative and interactive. BP 143/105 140/81 HR 80 spo2 97 Relevant diagnostics: ECG(s): N/A Echocardiogram(s): N/A Stress test(s): N/A Cardiac catheterization(s): N/A PFT(s): N/A Vascular studies: N/A Other: Apr 29 2020 XR hip 3 view examination of the right hip is read without comparison. 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 There is no fracture or dislocation. RVISORY CLERK RVISORY CLERK RVISORY CLERK documented in this encounter Consult Notes * Marlon Arais, OT - 05/23/2020 11:40 AM CST [facility] Occupational Therapy Evaluation Patient Name: Norman Lane Date of Service: 05/23/2020 Date of : 1965 Age: 55 y.o.male Room: [facility] OR/- Admit Date: 05/23/2020 Primary Diagnosis: UNILATERAL PRIMARY OSTEOARTHRITIS, RIGHT HIP/VT TOTAL HIP ARTHROPLASTY Referring Practitioner: Calude Colbert MD Subjective HPI: Norman Lane is a 55 y.o. male POD 0 s/p right posterior total hip replacement. Past Medical History: Diagnosis Date ??? Allergic rhinitis ??? Osteoarthritis ??? Sleep apnea cpap Past Surgical History: Procedure Laterality Date ??? COLONOSCOPY Precautions: Posterior Hip Weightbearing Status: Weightbearing as tolerated (WBAT) on right LE Occupational Therapy Goal: Be independent Patient Comment: I feel ready to go, this has been great Prior Living Environment and Level of Function: Type of Home: 1 level home Lives With: Receives Help From: Bathroom Shower/Tub: Walk-in shower with threshold Bathroom Toilet: Raised height Bathroom Equipment: built-in shower seat and toilet raiser Home Mobility Equipment: wheeled walker Home ADL Equipment: Pattern Layout Worker Level of [place]: Independent with ADLs, Independent with transfers and Independent with ambulation Driving: Yes 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 No adverse signs or symptoms noted. Pain Assessment: Pre-therapy pain: 0 /10 Post-therapy pain: 0 /10 Comments:no pain Cognition: Overall Cognitive Status: At Baseline Arousal: Alert Orientation: Oriented x4 (person, place, time, and situation) Following Commands: Follows all commands and directions without difficulty Safety Judgement: Good awareness of safety precautions Problem Solving: Able to problem solve independently Behavior: Easy to engage RUE Assessment: Within functional limits LUE Assessment: Within functional limits Activities of Daily Living Grooming: Patient completed grooming standing at sink with distant supervision for standing with assistive device. Lower Body Dressing: Patient completed lower body dressing sitting in bedside chair with distant supervision for safety,maintaining precautions and verbal cueing. Toileting: Patient completed toileting standing at toilet in bathroom with distant supervision for safety. Functional Mobility Bed Mobility: Patient in bedside chair upon arrival. Functional Transfers: Patient performed bed to and from chair with arms with standby assistance (SBA). Patient required assistance for safety and cues for pacing. Toilet Transfers: Patient performed raised toilet seat with rails transfer using wheeled walker with modified independence.Patient maintaining precautions. Shower Transfers: Patient performed shower transfer using no device to standing with modified independence. Patient completed with proper sequence with initial verbal training. Functional Ambulation: Patient ambulates x 80 feet with wheeled walker and modified independence to simulate home ambulation. Using wheeled walker safely after initial verbal cue for slide walker instead of picking it up. *Gait belt used for all OOB mobility* Assessment Occupational Therapy Problem List: Patient has impairments including: ADLs and functional mobility.Patient did benefit from occupational therapy intervention to address these impairments and functional limitations. Prognosis:Excellent Completed patient handoff and notified RN of patient's location and functional status upon completion of session. Pt is currently POD 0 THR of R LE, he was seen by OT for evaluation and treatment and is now at PATTY level of function for ADLs and functional transfers. to assist with IADLs at home. Education: Patient has been educated on the role of OT, safety, precautions, ADL re-training and Adaptive equipment/DME use. Education completed via explanation, demonstration and handout . Patient and spouse verbalized understanding and demonstrated understanding. Handouts Issued: Anterior precautions, Adaptive equipment and lower body dressing Barriers to discharge: None Care Plan Goals established: 05/23/20 1. The patient will perform dressing with modified independence in order to safely return home by 05/28/2020. a. Comments: Met 2. The patient will perform toileting plus transfer with modified independence in order to safely return home by 05/28/2020. Comments: Met 3. The patient will perform walk-in shower transfer with modified independence in order to safely return home by 05/28/2020. a. Comments: Met 4. The patient will recall posterior precautions with no cueing in order to safely return home by 05/28/2020. a. Comments: Met Plan Treatment frequency: One-time visit (Discharge from this service) Recommended equipment to safely discharge: dietitian consultant, sock aid, long-handled shoe horn, long-handled sponge, shower chair and wheeled walker Referrals Recommended: None. Discharge Recommendation: Home with intermittent assist, Home with family Comments: available to assist at home during recovery 21/12 Marlon Arias OT RVISORY CLERK * oRsalva Meza, PT - 05/23/2020 10:57 AM CST [facility] Physical Therapy Initial Evaluation Patient Name: Norman Lane Date of Service: 05/23/2020 Date of : 1965 Age: 55 y.o. male Room: [facility] OR/- Admit Date: 05/23/2020 Primary Diagnosis: UNILATERAL PRIMARY OSTEOARTHRITIS, RIGHT HIP/VT TOTAL HIP ARTHROPLASTY Referring Practitioner: Claude Colbert MD Subjective HPI: Norman Lane is a 55 y.o. male POD 0 s/p right total hip arthroplasty with Dr. Colbert. Patient is agreeable to physical therapy evaluation. Past Medical History: Diagnosis Date ??? Allergic rhinitis ??? Osteoarthritis ??? Sleep apnea cpap Past Surgical History: Procedure Laterality Date ??? 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 No adverse s/s throughout session. Activity Tolerance: Endurance: Tolerates 30 minutes of activity with multiple rests. Pain Assessment: Pt reports no pain in hip. Pain intervention: Repositioned, Ambulation, Elevated, Exercise, Physical therapy, Rest and RN notified Cognition: Overall Cognitive Status: At Baseline Arousal: Alert Orientation: Appropriate for patient's baseline Following Commands: Follows all commands and directions without difficulty Behavior: Easy to engage Lower Extremity Assessment: WFL. Patient able to move LLE WFL, mild weakness noted in L DF 4/5 however no gait deviations noted. RLE WFL s/p R AWILDA. Bed Mobility: Patient performs supine to and from edge of bed with contact guard assistance (CGA) progressing to SBA. Patient required cues and CGA for first trial of transfer, however, quickly improved to SBA with minimal cues to maintain precautions. Transfers: Patient performs sit to and from stand with wheeled walker and standby assistance (SBA). Verbal cues to place RLE anteriorly and use BUE to push up from bed to maintain precautions. Gait: Patient ambulates x 75 feet with wheeled walker and standby assistance (SBA). Verbal cues for FWW to move FWW then RLE for gait pattern. Verbal cues for turning to maintain precautions. Patient ambulated with decreased step length on LLE and decreased cole and step to gait pattern. Stairs: Patient negotiates 1 stairs with FWW and contact guard assistance (CGA). Patient required verbal cues for up with the good and down with the bad and to put weight through UE into FWW. Gait belt was used for all out of bed mobility. Therapeutic Exercise: Ankle Pumps 1x20 Glute Set 1x10 Short-Arc Quads 1x10 Heel Slides 1x10 Hip Abduction (supine with slide board) 1x10 Comments: [facility] Formal Balance Assessment: Formal balance assessment not indicated due to recent surgery. Assessment Physical Therapy Diagnosis: Impaired joint mobility, motor function, muscle performance, and range of motion associated with joint arthroplasty Prognosis: Excellent Response to today???s treatment: Excellent Patient seen within 2 hours of arriving to floor: Yes Completed patient handoff and notified RN of patient???s location and functional status upon completion of session. Patient found supine in bed upon therapist arrival. Patient's present for treatment session. Patient understood precautions and maintained throughout session. Car transfer verbally explained andconfirmed with patient for understanding. Patient stated no further concerns at this time. Patient left in bed with RN notified. Patient demonstrates deficiencies in the following areas: gait deviations, decreased strength, decreased range of motion, decreased endurance, impaired balance, decreased mobility, decreased safety awareness and due to orthopedic restrictions. Patient would benefit from physical therapy intervention to address these impairments and functional limitations. Education: Patient and family has been educated on the role of PT, safety , precautions, mobility training, stairs and home exercise program. Education completed via explanation, demonstration and handout . Patient and family verbalized understanding and demonstrated understanding. Handouts Issued: [facility] HEP and continuum and Posterior hip precautions Barriers to discharge: None Care Plan Goals established: 05/23/20 1. The patient will perform bed mobility including supine to/from sit with standby assistance (SBA)in order to safely return home by 05/28/2020. Comments: Completed 2. The patient will perform sit to/from stand transfers using wheeled walker and standby assistance(SBA) in order to safely return home by 05/28/2020. Comments: Completed 3. The patient will ambulate 75 feet using wheeled walker and standby assistance (SBA) in order to safely return home by 05/28/2020. Comments: Completed 4. The patient will ascend/descend a curb step with wheeled walker and contact guard assistance (CGA) in order to safely return home by 05/28/2020. Comments: Completed 5. The patient will perform HEP appropriately per protocol with assistance from joint agile coach as needed in order to safely return home by 05/28/2020. Comments: Completed 6. The patient will recall posterior precautions with no cueing in order to safely return home by 05/28/2020. Comments: Completed Plan Physical therapy frequency: One time visit (Discharge from this service) Physical therapy interventions: bed mobility, gait training, stair training, therapeutic activity, therapeutic exercise, equipment evaluation and education, balance training, functional transfer training, neuromuscular re-education, positioning and range of motion Recommended equipment to safely discharge: wheeled walker Recommended method of transportation at discharge: Personal vehicle with family Referrals Recommended: None Discharge Recommendation: Home with family, Home Health PT Rosalva Meza PT RVISORY CLERK documented in this encounter Miscellaneous Notes * Perioperative Nursing Note - Melissa Fitzgerald RN - 05/23/2020 12:30 PM SUPERVISORY CLERK Discharge instructions given to patient and spouse. PT and OT worked with patient and cleared him for discharge from their standpoint. Dr. Colbert has spoken to patient postop. FELT CUTTING MACHINE OPERATOR and watch caser have all spoken to patient/spouse. Patient tolerating PO, denies nausea, pain tolerable. RVISORY CLERK * Perioperative Nursing Note - Sheree Marshall RN - 05/23/2020 11:20 AM CST !120 Dr Driscoll at bedside for [ost op eval and post discharge instructions RVISORY CLERK * Op Note - Claude Colbert MD - 05/23/2020 8:00 AM CST Operative Report SURGEON: Claude Colbert MD SURGICAL TEAM: Surgeon(s) and Role: * Claude Colbert MD - Primary * Mark Hawthorne MD - Fellow DATE OF SURGERY : 05/23/2020 PREOPERATIVE DIAGNOSIS: Pre-op Diagnosis * Primary osteoarthritis of right hip [M16.11] POSTOPERATIVE DIAGNOSIS: Post-op Diagnosis * Primary osteoarthritis of right hip [M16.11] PROCEDURE: Procedure(s) with comments: ARTHROPLASTY RIGHT TOTAL HIP - DEPUY (Right) - Edison/Bimentum Cup Actis Stem (Depuy) ANESTHESIA: Spinal IMPLANTS: Implant Name Type Inv. Item Serial No. Wood Floor Layer Lot No. LRB No. Used Action BI-MENTUM PRESSFIT CUP 55 [id number] [employer] [id number] Right 1 Implanted BIMENTUM PE LINER 28/55 [id number] [employer] [id number] Right 1 Implanted [employer] [id number] ACTIS COLLAR HIP 9 HIGH OFFSET STEM FEMORAL - [id number] [employer] [id number] Actis Collar Hip 9 High Offset Stem Femoral Depuy Orthopaed[employer] Inc [id number] Right 1 Implanted [employer] [id number] ARTICUL/NNAMDI 28MM CEMENTLESS HIP +1.5MM 12/14 TAPER HEAD FEMORAL LATEX FREE - [id number] [employer] [id number] Articul/nnamdi 28mm Cementless Hip +1.5mm 12/14 Taper Head Femoral Latex Free Depuy Orthopa[employer] Inc [id number] Right 1 Implanted OPERATIVE DETAILS Estimated Blood Loss: 200 mL Urine output : 300 mls Intraoperative Fluids: 3000 mls Blood/Blood Products Transfused: none Incision type: [...] careful inspection of the acetabular component position toensure proper orientation I then turned to the [...] and initiation of deep wound closure. Dr. Hawthorne was immediately available for all noncritical portions of the procedure. Fellow assistant professor of criminal justice There was no qualified orthopedic resident available to assist in the procedure. Therefore, the skilled assistance of Dr Mark Hawthorne, who is a fellow in joint preservation and reconstruction surgery, was medically necessary for the performance of this case as there was no qualified orthopedic resident available. Their activities included helping me with the surgical exposure, placement and maintenance of retractors, manipulation of the leg so that I could perform the critical portions of the procedure, and helped with wound closure. Complications: none Condition on Discharge from the operating room was: Stable Claude Colbert MD Date: 05/23/2020 Time: 9:20 AM No Resident involved on case RVISORY CLERK * Brief Op Note - Mark Hawthorne MD - 05/23/2020 8:00 AM CST Operative Progress Note Surgical Team: Surgeon(s) and Role: * Claude Colbert MD - Primary * Mark Hawthorne MD - Fellow Anesthesiologist: Jeb Frye MD BOOKMAKER MAP: Kristy Guerin CRNA Well Logger: Greer Gibbs RN Scrub: Cecil Lancaster ST RNFA: Shobha Haji RN FLOAT: Jack Stephenson RN DATE OF SURGERY : 05/23/2020 Preoperative Diagnosis: Pre-op Diagnosis * Primary osteoarthritis of right hip [M16.11] Postoperative Diagnosis: Post-op Diagnosis * Primary osteoarthritis of right hip [M16.11] Procedure(s): Procedure(s) (LRB): ARTHROPLASTY RIGHT TOTAL HIP - DEPUY (Right) Operative Findings: osteophytosis Estimated Blood Loss: No blood loss documented. Intraoperative Fluids: 3000 mls Specimens: No specimen collected in procedure Implants: Implant Name Type Inv. Item Serial No. Wood Floor Layer Lot No. LRB No. Used Action BI-MENTUM PRESSFIT CUP 55 [id number] [employer] [id number] Right 1 Implanted BIMENTUM PE LINER 28/55 [id number] [employer] [id number] Right 1 Implanted [employer] [id number] ACTIS COLLAR HIP 9 HIGH OFFSET STEM FEMORAL - [id number] [employer] [id number] Actis Collar Hip 9 High Offset Stem Femoral Depuy Orthopaed[employer] Inc [id number] Right 1 Implanted [employer] [id number] ARTICUL/NNAMDI 28MM CEMENTLESS HIP +1.5MM 12/14 TAPER HEAD FEMORAL LATEX FREE - [id number] [employer] [id number] Articul/nnamdi 28mm Cementless Hip +1.5mm 12/14 Taper Head Femoral Latex Free Depuy Orth[employer] Inc [id number] Right 1 Implanted Blood/Blood Products Transfused: none mls Complications: None Condition on Discharge from the operating room was stable Ludwin Hawthorne MD Date: 05/23/2020 Time: 8:38 AM No Resident involved on case RVISORY CLERK documented in this encounter Plan of Treatment Not on file documented as of this encounter Procedures Procedure Name Priority Date/Time Associated Diagnosis Comments XR PELVIS ORTHO VIEW STAT 05/23/2020 9:39 AM SUPERVISORY CLERK ARTHROPLASTY TOTAL HIP - DEPUY 05/23/2020 7:36 AM SUPERVISORY CLERK Primary osteoarthritis of right hip documented in this encounter Results * XR Pelvis Ortho View (05/23/2020 9:39 AM SUPERVISORY CLERK) Anatomical Region Laterality Modality Body, Pelvis N/A Computed Radiogr aphy 05/23/2020 9:41 AM SUPERVISORY CLERK Impressions 05/23/2020 9:41 AM SUPERVISORY CLERK 1. New right total hip arthroplasty in near-anatomic alignment. Electronically signed by: Jeffrey Young M.D. Narrative 05/23/2020 9:41 AM SUPERVISORY CLERK EXAM: 1. ??XR PELVIS ORTHO VIEW HISTORY: Right hip osteoarthritis COMPARISON: Radiograph 04/29/2020 FINDINGS: Single view the pelvis is submitted for interpretation. New right total hip arthroplasty in near-anatomic alignment. No acute fracture identified. Unchanged mild left hip osteoarthritis with left femoral head asphericity and acetabular dysplasia. Bladder catheter is present. Postsurgical soft tissue gas projects over the right hip. Procedure Note Jeffrey Young MD - 05/23/2020 EXAM: 1. XR PELVIS ORTHO VIEW HISTORY: Right hip osteoarthritis COMPARISON: Radiograph 04/29/2020 FINDINGS: Single view the pelvis is submitted for interpretation. New right total hip arthroplasty in near-anatomic alignment. No acute fracture identified. Unchanged mild left hip osteoarthritis with left femoral head asphericity and acetabular dysplasia. Bladder catheter is present. Postsurgical soft tissue gas projects over the right hip. IMPRESSION: 1. New right total hip arthroplasty in near-anatomic alignment. Electronically signed by: Jeffrey Young M.D. Mark Hawthorne MD IMG XR PROCEDURES Final Result documented in this encounter Visit Diagnoses Diagnosis Primary osteoarthritis of right hip- Primary Right hip pain Pain in joint, pelvic region and thigh Primary osteoarthritis of right hip RUI on CPAP Class 2 obesity in adult documented in this encounter Admitting Diagnoses Diagnosis Primary osteoarthritis of right hip documented in this encounter Administered Medications Inactive Administered Medications - up to 3 most recent administrations Medication Order MAR Action Action Date Dose Rate Site acetaminophen (TYLENOL) tablet 650 mg 650 mg, oral, Once, On Liliya 12/24/20 at 0645, For 1 dose, Pre-Op, Indications: PainIndications:Pain Given 05/23/2020 6:24 AM SUPERVISORY CLERK 650 mg HYDROcodone-acetaminophen (NORCO) 5-325 mg per tablet 1 tablet 1 tablet, oral, Every 20 min PRN, 3rd line for pain, breakthrough pain, May give TWO doses at the same time for severe pain after consulting with Anesthesiologist, Starting on Liliya 05/23/20 at 0904, For 2 doses, Phase I, When able to tolerate PO., Indications: PainIndications:Pain Given 05/23/2020 10:51 AM SUPERVISORY CLERK 1 tablet Lactated Ringer's (LR) bolus 1,000 mL 1,000 mL, intravenous, Once, On Liliya 05/23/20 at 0645, For 1 dose, Pre-Op New Bag 05/23/2020 6:34 AM SUPERVISORY CLERK 1,000 mL Lactated Ringer's (LR) infusion 30 mL/hr, intravenous, Continuous, Starting on Liliya 05/23/20 at 0645, Pre-Op, Use a 500 ml bag for End Stage Renal Disease Patients New Bag 05/23/2020 8:42 AM SUPERVISORY CLERK New Bag 05/23/2020 8:07 AM SUPERVISORY CLERK New Bag 05/23/2020 7:21 AM SUPERVISORY CLERK 30 mL/hr 30 mL/hr ondansetron (ZOFRAN) injection 4 mg 4 mg, intravenous, Administer over 2 Minutes, Every 6 hours PRN, nausea, vomiting, if not tolerating PO, Starting on Liliya 05/23/20 at 0912, Indications: nausea and vomitingIndications:nausea and vomiting ondansetron ODT (ZOFRAN-ODT) disintegrating tablet 4 mg 4 mg, oral, Every 6 hours PRN, nausea, vomiting, Starting on Liliya 05/23/20 at 0912, Indications: nausea and vomitingIndications:nausea and vomiting documented in this encounter Discontinued Medications Medication Sig Discontinue Reason Start Date End Da te celecoxib (CeleBREX) 200 mg capsuleIndications:Oste oarthritis,Postoperativ e Acute Pain TAKE 2 PILLS WITH BREAKFAST THE DAY BEFORE SX. TAKE 1 PILL BID AFTER DISCHARGE. Reorder 05/16/2020 05/23/2020 chlorhexidine (HIBICLENS) 4 % external liquidIndications:Skin Disinfection Use 1/4 cup of soap with daily showers starting 5 days before surgery, last shower is the morning of surgery Stop Taking at Discharge 05/16/2020 05/23/2020 naproxen sodium 220 mg capsuleIndications:Pain Take by mouth as needed Stop Taking at Discharge 05/23/2020 documented as of this encounter Historical Medications * This list may reflect changes made after this encounter. celecoxib (CeleBREX) 200 mg capsuleIndicatio ns:Osteoarthriti s,Postoperative Acute Pain Take 1 tablet twice daily after surgery until prescription is finished. You should already have this prescription at home. Start on morning of 05/24/2020. 10 capsule 05/23/2020 added in this encounter Active and Recently Administered Medications Times are shown in SUPERVISORY CLERK. Scheduled Medication Order 05/21/2020 05/22/2020 05/23/2020 acetaminophen (TYLENOL) tablet 650 mg (COMPLETED) 650 mg, oral, Once, On Liliya 05/23/20 at 0645, For 1 dose, Pre-Op, Indications: Pain 0624 (Given - Provid er: Jonnie Olivares RN) aspirin enteric coated tablet 325 mg 325 mg, oral, 2 times daily, First dose on Liliya 05/23/20 at 0945, Do not crush, chew, cut, dissolve, open or otherwise manipulate tablet/capsule., Indications: Deep Vein Thrombosis Prevention 0945 (Due) ceFAZolin (ANCEF) 1 gram/10 mL in sterile water (premix) 1,000 mg 1,000 mg, intravenous, at 200 mL/hr, Administer over 3 Minutes, Every 8 hours, First dose on Liliya 05/23/20 at 0945, For 2 doses, Beginning 8 hours after last kaye-operative dose., Indications: Prophylaxis, Surgical 0945 (Due) ceFAZolin (ANCEF) 1 gram/10 mL in sterile water (premix) 3,000 mg (COMPLETED) 3,000 mg, intravenous, at 600 mL/hr, Administer over 3 Minutes, Once, On Liliya 05/23/20 at 0645, For 1 dose, Pre-Op, Administer within 60 minutes of incision., Indications: Prophylaxis, Surgical 0740 (Given - Provid er: Kristy Guerin CRNA) ceFAZolin (ANCEF) 3,000 mg in sodium chloride 0.9 % 3,000 mL irrigation solution (COMPLETED) 3,000 mg, irrigation, Once, On Liliya 05/23/20 at 0645, For 1 dose, Intra-Op, Have ready for intra-op administration. 0645 (Due)0908 (Give n - Provider: Claude Colbert MD) dexAMETHasone (DECADRON) 4 mg/mL injection 8 mg (COMPLETED) 8 mg, intravenous, Administer over 2 Minutes, Once, On Liliya 05/23/20 at 0645, For 1 dose, Intra-Op, Intra-op administration., Indications: Pain Treatment Adjunct 0842 (Given - Provid er: Kristy Guerin CRNA) ketorolac (TORADOL) injection 30 mg 30 mg, intravenous, Once, On Liliya 05/23/20 at 0645, For 1 dose, Intra-Op, INTRA-OP Give at time of skin closure, Indications: Postoperatvie Pain Management 45 (Due) ketorolac (TORADOL) injection 30 mg 30 mg, intravenous, Every 6 hours, First dose on Liliya 05/23/20 at 0945, For 2 doses, For Adult IV push, administer over 15 seconds, Indications: Pain 45 (Due) Lactated Ringer's (LR) bolus 1,000 mL (COMPLETED) 1,000 mL, intravenous, Once, On Liliya 05/23/20 at 0645, For 1 dose, Pre-Op 0634 (New Bag - Prov ider: Jonnie Olivares RN - Comment: prewarmed)0721 (Stopped - Provider: Jonnie Olivares RN) Lactated Ringer's (LR) bolus 1,000 mL 1,000 mL, intravenous, at 1,000 mL/hr, Administer over 1 Hours, Once, On Liliya 05/23/20 at 0945, For 1 dose, Phase I 944 (Due) senna-docusate (PERICOLACE) 8.6-50 mg per tablet 2 tablet 2 tablet, oral, 2 times daily, First dose on Liliya 05/23/20 at 0945, Hold for diarrhea., Indications: constipation 944 (Due) tranexamic acid (CYKLOKAPRON) 1,000 mg/100 mL (10 mg/mL) in 0.7% sodium chloride (premix) 1,000 mg (COMPLETED)(Linked Group 1) 1,000 mg, intravenous, at 400 mL/hr, Administer over 15 Minutes, Once, On Liliya 05/23/20 at 0645, For 1 dose, Intra-Op, INTRA-OP Infuse over 10 minutes prior to skin incision, Indications: Reduction of Perioperative Blood Loss 0745 (Given - Provid er: Kristy Guerin CRNA) tranexamic acid (CYKLOKAPRON) 1,000 mg/100 mL (10 mg/mL) in 0.7% sodium chloride (premix) 1,000 mg (COMPLETED)(Linked Group 1) 1,000 mg, intravenous, at 400 mL/hr, Administer over 15 Minutes, Once, On Liliya 05/23/20 at 0645, For 1 dose, Intra-Op, INTRA-OP Infuse over 10 minutes at the start of wound closure., Indications: Reduction of Perioperative Blood Loss 0842 (Given - Provid er: Kristy Guerin CRNA) Continuous Medication Order 05/21/2020 05/22/2020 05/23/2020 Lactated Ringer's (LR) infusion 30 mL/hr, intravenous, Continuous, Starting on Liliya 05/23/20 at 0645, Pre-Op, Use a 500 ml bag for End Stage Renal Disease Patients 0721 (New Bag - Prov ider: Jonnie Olivares RN - Comment: prewarmed)0807 (New Bag - Provider: Kristy Guerin CRNA)0821 (Anesthesia Volume Adjustment - Provider: Kristy Guerin CRNA)0842 (New Bag - Provider: Kristy Guerin CRNA)1230 (Stopped - Provider: Melissa Fitzgerald RN) Lactated Ringer's (LR) infusion 125 mL/hr, intravenous, Continuous, Starting on Liliya 05/23/20 at 0945, Phase I 0945 (Due) PRN Medication Order 05/21/2020 05/22/2020 05/23/2020 acetaminophen (TYLENOL) tablet 500 mg 500 mg, oral, As needed, headaches, other, Breakthrough Pain and Supplement to other pain meds, Starting on Liliya 05/23/20 at 0904, For 2 doses, Phase I, When able to tolerate PO after consulting with Anesthesiologist., Indications: Pain bupivacaine 0.5%-EPINEPHrine 1:200,000 PF 60 mL and ketorolac 30 mg solution (CANCELED) As needed, Starting on Liliya 05/23/20 at 0816, Intra-Op 0816 (Given - Provid er: Claude Colbert MD) diphenhydrAMINE (BENADRYL) injection 12.5 mg 12.5 mg, intravenous, Administer over 1 Minutes, Every 5 min PRN, itching, other, For Nausea, administer 25 mg IV., Starting on Liliya 05/23/20 at 0904, For 4 doses, Phase I, Max cumulative dose 50 mg., Indications: Itching fentaNYL (SUBLIMAZE) preservative free injection 25 mcg 25 mcg, intravenous, Every 5 min PRN, 1st line for pain, uncontrolled pain on PACU admission for outpatients, Starting on Liliya 05/23/20 at 0904, For 4 doses, Phase I, Use as 1st line for outpatients, dose not to exceed 100 mics. Then proceed to second line at [facility] after consulting anestheiologist, Indications: Pain HYDROcodone-acetaminophen (NORCO) 5-325 mg per tablet 1 tablet 1 tablet, oral, Every 20 min PRN, 3rd line for pain, breakthrough pain, May give TWO doses at the same time for severe pain after consulting with Anesthesiologist, Starting on Liliya 05/23/20 at 0904, For 2 doses, Phase I, When able to tolerate PO., Indications: Pain 1051 (Given - Provid er: Melissa Fitzgerald RN) HYDROcodone-acetaminophen (NORCO) 5-325 mg per tablet 1 tablet 1 tablet, oral, Every 4 hours PRN, 1st line for pain, Starting on Liliya 05/23/20 at 0912, May repeat in 1 hour if pain is uncontrolled or increasing. Max 2 doses within 1 dosing interval., Indications: Pain HYDROmorphone (DILAUDID) injection 0.2 mg 0.2 mg, intravenous, Administer over 2 Minutes, Every 5 min PRN, 2nd line for pain, Use as 1st line pain med for patients at [facility]. Use as 2nd line at [facility] after consulting with anesthesiologist., Starting on Liliya 05/23/20 at 0904, Phase I, Notify Anesthesiologist if total PACU dose reaches 2 mg for inpatients and 1 mg total for outpatients, and pain score 5/10 or more., Indications: Pain HYDROmorphone (DILAUDID) injection 0.2 mg 0.2 mg, intravenous, Administer over 2 Minutes, Every 4 hours PRN, 2nd line for pain, Starting on Liliya 05/23/20 at 0912, May administer 1 hour after second dose of 1st line analgesic agent for uncontrolled or increasing pain., Indications: Pain labetaloL (NORMODYNE,TRANDATE) injection 5 mg 5 mg, intravenous, Every 5 min PRN, high blood pressure, Starting on Liliya 05/23/20 at 0904, For 4 doses, Phase I, Max cumulative dose 20 mg. Dose if systolic blood pressure greater than 180 AND HR greater than 70. meperidine (DEMEROL) preservative free injection 12.5 mg 12.5 mg, intravenous, Every 10 min PRN, shivering, Starting on Liliya 05/23/20 at 0904, For 2 doses, Phase I, Max cumulative dose 25 mg., Indications: Shivering naloxone (NARCAN) 0.4 mg/mL injection 0.04-0.4 mg 0.04-0.4 mg, intravenous, Once as needed, other, excessive sedation/respiratory depression, Starting on Liliya 05/23/20 at 0904, For 1 dose, Phase I, Dilute 0.4 [...] Once as needed, nausea, vomiting, Starting on Liliya 05/23/20 at 0904, For 1 dose, Phase I, Proceed to prochlorperazine if ondansetron has been given within the last 6 hours. ondansetron (ZOFRAN) injection 4 mg(Linked Group 2) 4 mg, intravenous, Administer over 2 Minutes, Every 6 hours PRN, nausea, vomiting, if not tolerating PO, Starting on Liliya 05/23/20 at 0912, Indications: nausea and vomiting ondansetron ODT (ZOFRAN-ODT) disintegrating tablet 4 mg(Linked Group 2) 4 mg, oral, Every 6 hours PRN, nausea, vomiting, Starting on Liliya 05/23/20 at 0912, Indications: nausea and vomiting polyethylene glycol (MIRALAX) packet 17 g 17 g, oral, Daily PRN, constipation, Starting on Liliya 05/23/20 at 0912, Indications: constipation prochlorperazine (COMPAZINE) injection 5 mg 5 mg, intravenous, Every 10 min PRN, nausea, vomiting, Check with Anesthesiologist before administring, and ask about IV versus IM., Starting on Liliya 05/23/20 at 0904, For 2 doses, Phase I, If nausea/vomiting not relieved by ondansetron within 30 minutes or if ondansetron has been given within the last 6 hours. Linked Groups Order Group 1: tranexamic acid (CYKLOKAPRON) 1,000 mg/100 mL (10 mg/mL) in 0.7% sodium chloride (premix) 1,000 mg (COMPLETED)Jump to med 1,000 mg, intravenous, at 400 mL/hr, Administer over 15 Minutes, Once, On Liliya 05/23/20 at 0645, For 1 dose, Intra-Op, INTRA-OP Infuse over 10 minutes prior to skin incision, Indications: Reduction of Perioperative Blood Loss And tranexamic acid (CYKLOKAPRON) 1,000 mg/100 mL (10 mg/mL) in 0.7% sodium chloride (premix) 1,000 mg (COMPLETED)Jump to med 1,000 mg, intravenous, at 400 mL/hr, Administer over 15 Minutes, Once, On Liliya 05/23/20 at 0645, For 1 dose, Intra-Op, INTRA-OP Infuse over 10 minutes at the start of wound closure., Indications: Reduction of Perioperative Blood Loss Group 2: ondansetron ODT (ZOFRAN-ODT) disintegrating tablet 4 mgJump to med 4 mg, oral, Every 6 hours PRN, nausea, vomiting, Starting on Liliya 05/23/20 at 0912, Indications: nausea and vomiting Or ondansetron (ZOFRAN) injection 4 mgJump to med 4 mg, intravenous, Administer over 2 Minutes, Every 6 hours PRN, nausea, vomiting, if not tolerating PO, Starting on Liliya 05/23/20 at 0912, Indications: nausea and vomiting documented in this encounter Orders Medications Ordered That Carroll ht Not Have Been Administered Count Last Ordered Date First Ordered Date acetaminophen (TYLENOL) tablet 500 mg 1 aspirin enteric coated tablet 325 mg 1 05/01 bupivacaine 0.5%-EPINEPHrine 1:200,000 PF 60 mL and ketorolac 30 mg solution 1 05/23/2020 ceFAZolin (ANCEF) 1 gram/10 mL in sterile water (premix) 1,000 mg 1 05/23/2020 ceFAZolin (ANCEF) 1 gram/10 mL in sterile water (premix) 3,000 mg 1 05/23/2020 ceFAZolin (ANCEF) 3,000 mg i n sodium chloride 0.9 % 3,000 mL irrigation solution 1 05/23/2020 dexAMETHasone (DECADRON) 4 m g/mL injection 8 mg 1 05/23/2020 diphenhydrAMINE (BENADRYL) i njection 12.5 mg 1 05/23/2020 fentaNYL (SUBLIMAZE) preserv ative free injection 25 mcg 1 05/23/2020 HYDROcodone-acetaminophen (N ORCO) 5-325 mg per tablet 1 tablet 1 05/23/2020 HYDROmorphone (DILAUDID) injection 0.2 mg 2 05/23/2020 ketorolac (TORADOL) injection 30 mg 2 05/23 labetaloL (NORMODYNE,TRANDAT E) injection 5 mg 1 05/23/2020 Lactated Ringer's (LR) bolus 1,000 mL 1 Lactated Ringer's (LR) infusion 1 0 lidocaine PF (XYLOCAINE) 10 mg/mL (1 %) preservative free injection 2-10 mg 1 05/23/2020 meperidine (DEMEROL) preserv ative free injection 12.5 mg 1 05/23/2020 naloxone (NARCAN) 0.4 mg/mL injection 0.04-0.4 mg 1 05/23/2020 ondansetron (ZOFRAN) injection 4 mg 2 05/23 ondansetron ODT (ZOFRAN-ODT) disintegrating tablet 4 mg 1 05/23/2020 polyethylene glycol (MIRALAX) packet 17 g 1 05/23/2020 prochlorperazine (COMPAZINE) injection 5 mg 1 05/23/2020 scopolamine patch 72 hour 1 patch 1 020 senna-docusate (PERICOLACE) 8.6-50 mg per tablet 2 tablet 1 05/23/2020 sodium chloride 0.9% flush 0.5-20 mL 1 05/01 tranexamic acid (CYKLOKAPRON ) 1,000 mg/100 mL (10 mg/mL) in 0.7% sodium chloride (premix) - ADS Override Pull 1 05/23/2020 tranexamic acid (CYKLOKAPRON ) 1,000 mg/100 mL (10 mg/mL) in 0.7% sodium chloride (premix) 1,000 mg 2 05/23/2020 Diet Count Last Ordered Date First Orde red Date ADULT DISCHARGE DIET 1 05/23/2020 Nursing Count Last Ordered Date First Orde red Date DISCHARGE ACTIVITY 1 05/23/2020 DISCHARGE CALL PROVIDER 11 05/23/2020 DISCHARGE DRESSING 1 05/23/2020 DISCHARGE INSTRUCTIONS 2 05/23/2020 WEIGHT BEARING STATUS 1 05/23/2020 Precaution Count Last Ordered Date First Orde red Date HIP PRECAUTIONS 1 05/23/2020 documented in this encounter Care Teams Manager Camp Relationship Specialty Start Date End Date Johnnie Red MD [facility] [place] [address] PCP - General Family Medicine 02/14/20 documented as of this encounter
--- OUTSIDE RECORDS SUMMARY | 2024-06-03 08:15 | XMS_ITS | Encounter Summary ---
Author Organization [facility] Healthcare Address [address] [place] [address] Care Team Providers Care Burlap Roll Coverer Name Role Phone Johnnie Red MD Primary Care Provider [phone] Encounter Details Date Type Department Care Team (Late st Contact Info) Description 05/20/2020 8:30 AM OPERATING THEATRE TECHNICIAN Lab [facility] [id number] [place] [id number] Preoperative testing; Primary osteoarthritis of right hip Social History Tobacco Use Types Packs/Day [...] Procedure Name Priority Date/Time Associated Diagnosis Comments EGFR Routine 05/20/2020 8:33 AM OPERATING THEATRE TECHNICIAN Primary osteoarthritis of right hip VITAMIN D 25 HYDROXY Routine 05/20/2020 8:33 AM OPERATING THEATRE TECHNICIAN Primary osteoarthritis of right hip CBC WITHOUT DIFFERENTIAL Routine 05/20/2020 8:33 AM OPERATING THEATRE TECHNICIAN Preoperative testing COMPREHENSIVE METABOLIC PANEL Routine 05/20/2020 8:33 AM OPERATING THEATRE TECHNICIAN Primary osteoarthritis of right hip COVID-19 CORONAVIRUS RNA Routine 05/20/2020 8:30 AM OPERATING THEATRE TECHNICIAN Preoperative testing documented in this encounter Results * eGFR (05/20/2020 8:33 AM OPERATING THEATRE TECHNICIAN) eGFR >90 mL/min/1.7 3 m2 [facility] Comment: Interpretive Data Reference Interval Normal ?>/= 90 mL/min/1.73m2 Mildly decreased* ? 60 - 89 mL/min/1.73m2 Mildly to moderately decreased ?45 - 59 mL/min/1.73m2 Moderately to severely decreased ??30 - 44 mL/min/1.73m2 Severely decreased ?15 - 29 mL/min/1.73m2 Kidney Failure ?< 15 ??mL/min/1.73m2 *Relative to young adult level If -Burmese multiply value by 1.16. Estimated glomerular filtration rate is determined by the CKD-EPI equation recommended by the National Kidney Foundation (KDIGO 2012 Clinical Practice Guideline for the Evaluation and Management of Chronic Kidney Disease. Kidney Intnl Suppl May 2012;3:1). The CKD-EPI equation should not be used for patients with unstable renal function and has not been validated in children and those over 70. Current interpretive data was last reviewed 2015. Blood specimen (specimen) 05/20/2020 8:33 AM OPERATING THEATRE TECHNICIAN 05/20/2020 8:45 AM OPERATING THEATRE TECHNICIAN us Claude Colbert MD LAB BLOOD ORDERABLES Brandi menchaca Result [facility] [address] [facility]. [place] [address] * (ABNORMAL) Comprehensive metabolic panel (05/20/2020 8:33 AM OPERATING THEATRE TECHNICIAN) Sodium 138 135 - 145 mmol/L [facility] Potassium, pl 5.0(H) 3.3 - 4.9 mmol/L [facility] Comment:Hemolyzed; result ma y be falsely elevated. Chloride 103 97 - 110 mmol/L [facility] CO2 26 22 - 32 mmol/L [facility] Anion gap 9 2 - 15 mmol/L [facility] BUN 18 8 - 25 mg/dL [facility] Creatinine 0.81 0.80 - 1.30 mg/dL [facility] Glucose 113 70 - 199 mg/dL [facility] Comment: Interpretive Data Fasting glucose >/= 126 [...] interpretive data was last revised 2017. Calcium 9.8 8.5 - 10.3 mg/dL [facility] Bilirubin, total 0.4 0.1 - 1.2 mg/dL [facility] Protein, pl 7.4 6.5 - 8.5 g/dL [facility] Albumin 4.7 3.5 - 5.0 g/dL [facility] Alk phos 63 40 - 130 Units/L [facility] ALT 37 7 - 55 Units/L [facility] AST 28 10 - 50 Units/L [facility] Comment:Hemolyzed; result ma y be falsely elevated. Blood specimen (specimen) 05/20/2020 8:33 AM OPERATING THEATRE TECHNICIAN 05/20/2020 8:45 AM OPERATING THEATRE TECHNICIAN us Claude Colbert MD LAB BLOOD ORDERABLES Brnadi menchaca Result [facility] MARIA MARIACH [id number] [facility]. Department [place] [address] * Vitamin D 25 hydroxy (05/20/2020 8:33 AM OPERATING THEATRE TECHNICIAN) [facility] Vitamin D 25-OH 30 30 - 80 ng/mL [facility] Comment:Testing performed by : [facility], [address] [place]., [address] Blood specimen (specimen) 05/20/2020 8:33 AM OPERATING THEATRE TECHNICIAN 05/20/2020 9:25 AM OPERATING THEATRE TECHNICIAN us Claude Colbert MD LAB BLOOD ORDERABLES Brandi l Result [facility] [address] [employer] [place] [address] * CBC without differential (05/20/2020 8:33 AM OPERATING THEATRE TECHNICIAN) Pathologist [facility] WBC 4.1 3.8 - 9.9 K/cumm [facility] Hgb 15.7 13.0 - 17.5 g/dL [facility] Hct 46.8 38.9 - 50.3 % [facility] Plt 179 150 - 400 K/cumm [facility] MPV 10.5 9.1 - 12.3 fL [facility] RBC 5.03 4.30 - 5.80 M/cumm [facility] MCV 93.0 81.3 - 96.4 fL [facility] MCH 31.2 27.1 - 33.3 pg [facility] MCHC 33.5 32.3 - 35.7 g/dL [facility] RDW CV 12.0 11.1 - 14.9 % [facility] RDW SD 41.2 35.7 - 48.1 fL [facility] NRBC abs 0.00 0.00 - 0.01 K/cumm [facility] Blood specimen (specimen) 05/20/2020 8:33 AM OPERATING THEATRE TECHNICIAN 05/20/2020 8:45 AM OPERATING THEATRE TECHNICIAN us Anna De Los Santos NP LAB BLOOD ORDERABLES Final Re sult [employer] [id number] [employer]. Department [place] [address] * COVID-19 Coronavirus RNA Nasopharyngeal (05/20/2020 8:30 AM OPERATING THEATRE TECHNICIAN) COVID-19 RNA Not Detected [facility] Comment: Interpretive Data Testing performed at [facility] Molecular Infectious Disease Laboratory. The 2018-Novel Coronavirus Assay (COVID-19) Real Time RT-PCR assay is for in vitro diagnostic use under FDA emergency use authorization only. A negative RT-PCR result does not preclude infection with COVID-19 and should not be used as the sole basis for treatment or other patient management decisions. Additional sample types have been validated according to CLIA regulations. ?? Current Interpretive Data was last revised on 2019. Testing performed by: [facility], [address] [place] [address]., [id number] First COVID-19 test? No [facility] Comment:Testing performed by : [facility], [address] [place] [address], [address] Employeed in healthcare? No [facility] Comment:Testing performed by : [facility], [address] [place] [address], [address] status? No [facility] Comment:Testing performed by : [facility], [address] [place] [address], [address] Group care resident? No [facility] Comment:Testing performed by : [facility], [address] [place] [address], [address] Hospitalized? No [facility] Comment:Testing performed by : [address], [address] Is patient in ICU? No [facility] Comment:Testing performed by : [address], [address] Symptomatic as defined by CDC? No [facility] Comment:Testing performed by : [address], [address] Nasopharyngeal 05/20/2020 8: 30 AM OPERATING THEATRE TECHNICIAN 05/20/2020 9:51 AM OPERATING THEATRE TECHNICIAN Narrative [facility] - 05/21/2020 4:46 AM OPERATING THEATRE TECHNICIAN What is the reason for testing?->Screening prior to scheduled procedure or surgery us Anna De Los Santos NP LAB MICROBIOLOGY - GENERAL OR DERABLES Final Result Performing Organization Address City/State/[facility] Co wi Phone Number [facility] [address] [facility] Department [place] [address] documented in this encounter Visit Diagnoses Diagnosis Preoperative testing Unspecified pre-operative examination Primary osteoarthritis of right hip documented in this encounter Care Teams Burlap Roll Coverer Relationship Specialty Start Date End Date Johnnie Red MD [address] [place] [address] PCP - General Family Medicine 02/14/20 documented as of this encounter
--- OUTSIDE RECORDS SUMMARY | 2024-06-03 08:15 | XMS_ITS | Encounter Summary ---
Author Organization [facility] Healthcare Address [address] [place] [address] Care Team Providers Care Electrode Cleaning Machine Operator Name Role Phone Johnnie Red MD Primary Care Provider [phone] Encounter Details Date Type Department Care Team (Latest Contact Info) Description 02/20/2020 8:59 AM CDT - 02/20/2020 9:02 AM CDT Hospital Encounter [facility] [address] [place] [address] Discharge Disposition: Discharge to home or self care Social History Tobacco Use Types Packs/Day Years Used Date Smoking Tobacco: Never Assessed Sex and Gender Information Value Date Recorded Sex Assigned at Not on file Legal Sex Male 10:40 AM CDT Gender Identity Not on file Sexual Orientation Not on file documented as of this encounter Discharge Disposition Disposition Code Departure Means Destination Discharge to home or self care documented in this encounter Plan of Treatment Not on file documented as of this encounter Procedures Procedure Name Priority Date/Time Associated Diagnosis Comments NEURO CT MR OUTSIDE REFERENCE Routine 02/20/2020 8:59 AM CDT Diagnosis unknown documented in this encounter Results * Neuro CT MR Outside Reference (02/20/2020 8:59 AM CDT) Impressions [facility] - 02/20/2020 8:59 AM CDT These images are for Reference purposes only and have not been reviewed by [facility]. ??There will be no report generated by a [facility]. Narrative [facility] - 02/20/2020 8:59 AM CDT EXAMINATION: ??Images For Reference Purposes Only us Claude Colbert MD IMG CT PROCEDURES Final R esult [facility] documented in this encounter Visit Diagnoses Not on filedocumented in this encounter Care Teams Electrode Cleaning Machine Operator Relationship Specialty Start Date End Date Johnnie Red MD [address] [place] [address] PCP - General Family Medicine 02/14/20 documented as of this encounter
--- OUTSIDE RECORDS SUMMARY | 2024-06-03 08:15 | XMS_ITS | Encounter Summary ---
Author Organization [facility] Healthcare Address [address] [place] [address] Care Team Providers Care Metal Products Viewer Name Role Phone Johnnie Red MD Primary Care Provider Encounter Details Date Type Department Care Team (Late st Contact Info) Description 05/23/2020 7:31 AM WELL FLOW OPERATOR Anesthesia Event [facility] Operating Room [address] [place] [address] Jeb Frye MD [address] [place] [address] Janneth Zaldivar MD [address] [place] [address] Anesthesia Record Procedure Summary Procedure Name Responsible Anesthesiologist Anesthesia Start Time Anesthesia Stop Time ARTHROPLASTY RIGHT TOTAL HIP - DEPUY (Right: Hip) Jeb Frye MD 05/23/20 0731 05/23/20 0905 Events Date Time Event Comment 05/23/2020 0559 In Preop 0643 0712 Time out - Regional 0712 Start Supplemental O2 0712 Face Time 0714 An Block Induction The patie nt was reevaluated immediately before moderate or deep sedation and before anesthesia induction. 0720 Spinal Placed 0731 An Start 0736 In Room 0737 AN Equip Check 0737 An Start Data 0741 Start Supplemental O2 0743 An Induction The patient was reevaluated immediately before moderate or deep sedation use and before anesthesia induction. 0744 Anesthesia Ready 0800 Proc Start 0800 Incision Start 0857 Proc Fin 0859 Out of Room 0859 an stop data 0905 Handoff to RN I completed my handoff [...] disposition at the time of handoff: PACU 904 An Stop Meds Name Total midazolam 2 mg/2 mL 7 mg fentaNYL PF 100 mcg bupivacaine 0.75 %-dextrose 8.25 % PF 1. 8 mL propofol 270 mg propofol drip 441.84 mg phenylephrine syringe 100 mcg/mL 400 mcg ceFAZolin (ANCEF) 1 gram/10 mL in steril e water (premix) 3,000 mg 3,000 mg lidocaine 1 % 30 mg tranexamic acid (CYKLOKAPRON ) 1,000 mg/100 mL (10 mg/mL) in 0.7% sodium chloride (premix) 1,000 mg 1,000 mg tranexamic acid (CYKLOKAPRON ) 1,000 mg/100 mL (10 mg/mL) in 0.7% sodium chloride (premix) 1,000 mg 1,000 mg ondansetron PF 4 mg dexAMETHasone (DECADRON) 4 mg/mL injecti on 8 mg 8 mg Lactated Ringer's (LR) infusion 3,000 mL * Agents Name O2 * Blood No blood administrations on file. Lines, Drains, and Airways Type Details Placement Removal Peripheral IV Placement Date: 05/23/20; Placement Time: 632; Catheter Size: 20 G; Orientation: Left; Location: Hand; Removal Date: 05/23/20; Removal Time: 122; Removal Reason: Discharge 05/23/20 06 by Jonnie Olivares RN 05/23/20 122 by Melissa Fitzgerald RN Urethral Catheter Placement Date: 05/23/20; Placement Time: 728; Inserted by: ju knott; Type: Straight-tip; Size: 16 Fr.; Balloon Size: 10 mL; Urine Returned: Yes; Removal Date: 05/23/20; Removal Time: 1115 05/23/20 07 by Jonnie Olivares RN 05/23/20 1115 by Sheree Marshall RN RETIRED Surgical Site 05/23/20; 0815; Right; Hip/trochanter; 10/12/21 05/23/20 0815 by Greer Aguilar RN 10/12/21 0000 by Sofia Williamson RN documented in this encounter Social History Tobacco [...] Postprocedure Evaluation - Jeb Frye MD - 05/23/2020 10:59 AM CST Patient: Norman [address] Procedure Summary Date: 05/23/20 Room / Location: [facility] OPERATING ROOM [facility] OPERATING ROOM Anesthesia Start: 730 Anesthesia Stop: 904 Procedure: ARTHROPLASTY RIGHT TOTAL HIP - DEPUY (Right Hip) Diagnosis: Primary osteoarthritis of right hip (Primary osteoarthritis of right hip [M16.11]) Surgeons: Claude Colbert MD Responsible Provider: Jeb Frye MD Anesthesia Type: regional as primary anesthetic, spinal ASA Status: 2 Anesthesia Type: regional as primary anesthetic, spinal Last vitals BP 129/73 Pulse 75 Temp 36.2 ??C (97.2 ??F) (Temporal) Resp 21 SpO2 94% Anesthesia Post Evaluation Patient location during evaluation: PACU Patient participation: complete - patient participated Level of consciousness: fully awake Pain score: 4 Pain management: adequate Airway patency: adequate Evidence of recall: no Anesthetic complications: no Cardiovascular status: hemodynamically stable and acceptable Respiratory status: acceptable and room air Hydration status: acceptable Pt is: normothermic Nausea/Vomiting status: none FLOW OPERATOR * Anesthesia Procedure Notes - Jeb Frye MD - 05/23/2020 7:22 AM WELL FLOW OPERATOR Associated Order(s): Spinal Block Spinal Block Patient [...] O2: nasal cannula Prep solution: chlorhexadine/alcohol PPE: provider hat/mask, sterile gloves and sterile drape Skin infiltrated with lidocaine 1%: yes Spinal: Approach: midline Location: L3-4 Spinal injection: CSF demonstrated, no aspiration of heme and no paresthesias noted Number of attempts: 1 Spinal Needle: Needle type: Quincke Needle gauge: 22 G Needle length: 9 cm Assessment: Events: patient tolerated procedure well with no complications FLOW OPERATOR * Anesthesia Preprocedure Evaluation - Jeb Frye MD - 05/20/2020 7:32 AM CST Images from the original note were not included. [facility] Preoperative [facility] Planning Preoperative Evaluation Record Evaluation type/location: [facility] Planned procedure site: [facility] OR Date: 05/20/20 Anesthesia Evaluation Norman [...] Cardiovascular Pertinent negatives: hypertension ; CAD ; [place] ; CABG ; valvular heart disease; valve [...] days. Pre- procedure COVID19 testing performed at [facility]. Result pending- to be reviewed by surgeon's [...] asphericity. There is no fracture or dislocation. DOS Physical Exam Medical history, medications, and allergies reviewed. Attestation: This PAT evaluation 05/23/2020. Airway Exam: Mallampati: II Cervical ROM: FROM Cardiovascular Exam: Rate: regular Rhythm: regular Pulmonary Exam: LCTA, bilat Dental Exam: Appears intact Anesthesia Plan ASA 2 My patient is approved for the Anesthesia Controlled Medication protocol when under care of a SURGICAL DRESSING MAKER Planned anesthesia: Regional as primary anesthetic and [...] and agree to proceed. All questions answered. FLOW OPERATOR FLOW OPERATOR FLOW OPERATOR FLOW OPERATOR documented in this encounter Plan of Treatment Not on file documented as of this encounter Procedures Procedure Name Priority Date/Time Associated Diagnosis Comments HI AN PROCEDURE PLACEHOLDER Routine 05/23/2020 7:22 AM WELL FLOW OPERATOR documented in this encounter Results * HI AN PROCEDURE PLACEHOLDER (05/23/2020 7:22 AM WELL FLOW OPERATOR) Narrative Jeb Frye MD - 05/23/2020 7:22 AM WELL FLOW OPERATOR Jeb Frye MD ? 05/23/2020 ??7:22 AM Spinal Block Patient location: pre-op holding [...] O2: nasal cannula Prep solution: chlorhexadine/alcohol PPE: provider hat/mask, sterile gloves and sterile drape Skin infiltrated with lidocaine 1%: yes Spinal: Approach: midline Location: L3-4 Spinal injection: CSF demonstrated, no aspiration of heme and no paresthesias noted Number of attempts: 1 Spinal Needle: Needle type: Quincke Needle gauge: 22 G Needle length: 9 cm Assessment: Events: patient tolerated procedure well with no complications Jeb Frye MD ANESTHESIA ORDERABLES Brandi l Result documented in this encounter Visit Diagnoses Not on filedocumented in this encounter Administered Medications Inactive Administered Medications - up to 3 most recent administrations Medication Order MAR Action Action Date Dose Rate Site bupivacaine 0.75% (MARCAINE SPINAL) preservative free injection in dextrose intrathecal, As needed, Starting on Liliya 05/23/20 at 0720, Anesthesia Intra-op, Indications: Spinal AnesthesiaIndications:Spinal Anesthesia Given 05/23/2020 7:20 AM WELL FLOW OPERATOR 1.8 mL ceFAZolin (ANCEF) 1 gram/10 mL in sterile water (premix) 3,000 mg 3,000 mg, intravenous, at 600 mL/hr, Administer over 3 Minutes, Once, On Liliya 05/23/20 at 0645, For 1 dose, Pre-Op, Administer within 60 minutes of incision., Indications: Prophylaxis, SurgicalIndications:Prophylaxis, Surgical Given 05/23/2020 7:40 AM WELL FLOW OPERATOR 3,000 mg dexAMETHasone (DECADRON) 4 mg/mL injection 8 mg 8 mg, intravenous, Administer over 2 Minutes, Once, On Liliya 05/23/20 at 0645, For 1 dose, Intra-Op, Intra-op administration., Indications: Pain Treatment AdjunctIndications:Pain Treatment Adjunct Given 05/23/2020 8:42 AM WELL FLOW OPERATOR 8 mg fentaNYL (SUBLIMAZE) preservative free injection intravenous, As needed, Starting on Liliya 05/23/20 at 0714, Anesthesia Intra-op Given 05/23/2020 7:14 AM WELL FLOW OPERATOR 100 mcg Lactated Ringer's (LR) infusion 30 mL/hr, intravenous, Continuous, Starting on Liliya 05/23/20 at 0645, Pre-Op, Use a 500 ml bag for End Stage Renal Disease Patients New Bag 05/23/2020 8:42 AM WELL FLOW OPERATOR New Bag 05/23/2020 8:07 AM WELL FLOW OPERATOR New Bag 05/23/2020 7:21 AM WELL FLOW OPERATOR 30 mL/hr 30 mL/hr lidocaine (XYLOCAINE) 10 mg/mL (1 %) injection As needed, Starting on Liliya 05/23/20 at 0743, Anesthesia Intra-op, Indications: Administration of Local AnesthesiaIndications:Administration of Local Anesthesia Given 05/23/2020 7:43 AM WELL FLOW OPERATOR 30 mg midazolam (VERSED) 1 mg/mL injection intravenous, As needed, Starting on Liliya 05/23/20 at 0714, Anesthesia Intra-op Given 05/23/2020 8:51 AM WELL FLOW OPERATOR 0.5 mg Given 05/23/2020 8:50 AM WELL FLOW OPERATOR 0.5 mg Given 05/23/2020 8:29 AM WELL FLOW OPERATOR 0.5 mg ondansetron (ZOFRAN) injection Administer over 2 Minutes, As needed, Starting on Liliya 05/23/20 at 0803, Anesthesia Intra-op Given 05/23/2020 8:03 AM WELL FLOW OPERATOR 4 mg phenylephrine (MAG-SYNEPHRINE) 1 mg/10 mL (100 mcg/mL) in sodium chloride 0.9% (premix) intravenous, As needed, Starting on Liliya 05/23/20 at 0800, Anesthesia Intra-op Given 05/23/2020 8:35 AM WELL FLOW OPERATOR 100 mc g Given 05/23/2020 8:31 AM WELL FLOW OPERATOR 50 mcg Given 05/23/2020 8:21 AM WELL FLOW OPERATOR 100 mcg propofoL (DIPRIVAN) IV intravenous, Continuous PRN, Starting on Liliya 05/23/20 at 0743, Anesthesia Intra-op Rate/Dose Change 05/23/2020 8:40 AM WELL FLOW OPERATOR 40 mcg/kg/min 31.56 mL/hr Rate/Dose Change 05/23/2020 8:36 AM WELL FLOW OPERATOR 60 mcg/kg/min 47.3 4 mL/hr Rate/Dose Change 05/23/2020 7:56 AM WELL FLOW OPERATOR 50 mcg/kg/min 39.4 5 mL/hr propofoL (DIPRIVAN) IV intravenous, As needed, Starting on Liliya 05/23/20 at 0743, Anesthesia Intra-op Given 05/23/2020 8:55 AM WELL FLOW OPERATOR 50 mg Given 05/23/2020 8:47 AM WELL FLOW OPERATOR 50 mg Given 05/23/2020 8:31 AM WELL FLOW OPERATOR 20 mg tranexamic acid (CYKLOKAPRON) 1,000 mg/100 mL (10 mg/mL) in 0.7% sodium chloride (premix) 1,000 mg 1,000 mg, intravenous, at 400 mL/hr, Administer over 15 Minutes, Once, On Liliya 05/23/20 at 0645, For 1 dose, Intra-Op, INTRA-OP Infuse over 10 minutes prior to skin incision, Indications: Reduction of Perioperative Blood LossIndications:Reduction of Perioperative Blood Loss Given 05/23/2020 7:45 AM WELL FLOW OPERATOR 1,000 mg tranexamic acid (CYKLOKAPRON) 1,000 mg/100 mL (10 mg/mL) in 0.7% sodium chloride (premix) 1,000 mg 1,000 mg, intravenous, at 400 mL/hr, Administer over 15 Minutes, Once, On Liliya 05/23/20 at 0645, For 1 dose, Intra-Op, INTRA-OP Infuse over 10 minutes at the start of wound closure., Indications: Reduction of Perioperative Blood LossIndications:Reduction of Perioperative Blood Loss Given 05/23/2020 8:42 AM WELL FLOW OPERATOR 1,000 mg documented in this encounter Care Teams Metal Products Viewer Relationship Specialty Start Date End Date Johnnie Red MD [address] [place] [address] PCP - General Family Medicine 02/14/20 documented as of this encounter
--- OUTSIDE RECORDS SUMMARY | 2024-06-03 08:15 | XMS_ITS | Encounter Summary ---
Author Organization [facility] Healthcare Address [address] [place] [address] Care Team Providers Care Jigger Machine Operator Name Role Phone Johnnie Red MD Primary Care Provider [phone] Encounter Details Date Type Department Care Team (Late st Contact Info) Description 05/23/2020 8:00 AM MAGISTRATE ASSISTANT - 05/23/2020 9:[address] [facility] Surgery [facility] Operating Room [address] [place] [address] Claude Colbert MD [address] [facility] [address] [place], [place] [id number] ARTHROPLASTY RIGHT TOTAL HIP - DEPUY Surgery Details Date/Time Status Location OR Service Patient Class Case Class Case Type Trauma Case? 05/23/2020 8:00 AM Posted [facility] OPERATING ROOM OR Orthopaedics Outpatient in Bed Elective Panel 1 Procedure LRB Anes Op Region Wound Class Comments ARTHROPLASTY RIGHT TOTAL HIP - DEPUY Right Spinal Hip Class I - Clean [place]/Bimentum Cup Actis Stem (Depuy) Surgeon Surgeon Role Service Panel Claude Colbert MD Primary Orthopaedics 1 Mark Hawthorne MD Fellow Orthopaedics 1 documented in this encounter Social [...] Sign Reading Time Taken Comments Blood Pressure 116/71 05/23/2020 9:50 AM MAGISTRATE ASSISTANT Pulse 75 05/23/2020 9:50 AM MAGISTRATE ASSISTANT Temperature 36.2 ??C (97.2 ??F) 05/23/2020 9:02 AM CS T Respiratory Rate 20 05/23/2020 9:50 AM MAGISTRATE ASSISTANT Oxygen Saturation 95% 05/23/2020 9:50 AM MAGISTRATE ASSISTANT Inhaled Oxygen Concentration - - Weight - - Height - - Body Mass Index - - documented in this encounter Discharge Summaries * Bruna Robledo NP - 05/23/2020 10:04 AM CST Inpatient Discharge Summary Admitting Provider: Claude Colbert MD Discharge Provider: Claude Colbert MD Primary Care Physician at Discharge: Johnnie Red MD [phone] Admission Date: 05/23/2020 Discharge Date: 05/23/2020 Primary [...] home health care on 05/23/2020. Discharge Medications: Layla Lanen Home Medication Instructions OSEAS:[id number] Printed on:05/23/20 1563 Medication Information aspirin 325 mg enteric coated [...] Claude Colbert on 07/08/2020 at 7:30am at [facility], [address] [place] [address], Medical Office Building [address], [address] [address]. Condition on Discharge: Stable Cosigned by Claude Colbert MD at 05/28/2020 6:18 AM MAGISTRATE ASSISTANT STRATE ASSISTANT STRATE ASSISTANT documented in this encounter Discharge Instructions * Discharge Instr - Other Orders* Elsie Victoria RN - 05/23/2020 10:43 AM MAGISTRATE ASSISTANT HOME HEALTH AGENCY: [facility] for RN and PT services STRATE ASSISTANT documented in this encounter Medications at Time [...] Patient choice (Home Health/Hospice) list given to patient/food service sales representatives? Yes Home health arranged through [facility] for RN and PT services . Discussed with the patient and he is in agreement with the plan. STRATE ASSISTANT * Padma Ramírez RN - 05/22/2020 10:21 AM CST CM Initial Assessment Interview Note Information Obtained From: (P) Patient (05/22/20 1020) Admission Source: pre-op Impression: NAD Plan Includes: home with HH ass't Primary Source of Transportation: car/spouse Health Insurance Coverage: see summary Prescription Coverage: Y [facility]acy: [facility] [place] Primary Care Provider: Johnnie Red MD Prior to Admission: Primary Caregiver: (P) Self Support System: (P) Spouse/Significant Other Support system contact info (name, phone, availablity): (P) Hannah [phone] Home Care Services: (P) No Durable Medical Equipment: (P) CPAP/Bi-PAP Living Arrangements: (P) Spouse/significant other Type of Residence: (P) Private residence Steps in home? : (P) Yes, Outside of home Number of steps outside:: (P) 2 steps (05/22/20 1020) Potential discharge needs include: (P) half-way, Physical therapy, (05/22/20 1020) Dialysis: Dialysis: (P) No (05/22/20 1020) Behavioral Health Services: Behavioral Health Services: (P) No (05/22/20 1020) Patient expects to be Discharged to: (P) Private residence, (05/22/20 1020) Additional Information: Patient does not have a agency preference. Patient will not need a [...] Collaboration with patient, MD, direct care nurse, Pinked Edge Sewing Machine Operator, and other members of the health care team to assure needed interventions completed. 2. Return patient to optimal level of self-care post discharge. 3. Compound Machine Operator will follow for Discharge Planning - interventions [...] plan. Interviewed via phone. Padma Ramírez RN STRATE ASSISTANT documented in this encounter H&P Notes * Claude Colbert MD - 05/23/2020 5:58 AM CST I have reviewed the H&P, examined the patient, and endorse the findings as written. Plan of Care : Based on the above findings, I consider Norman Lane to be an acceptable risk for : Procedure(s): ARTHROPLASTY RIGHT TOTAL HIP - DEPUY STRATE ASSISTANT Source Note - Marisa Crisostomo NP - 05/20/2020 7:32 AM MAGISTRATE ASSISTANT Images from the original note were not included. [facility] for Preoperative Assessment and Planning Preoperative Evaluation Record Evaluation type/location: CPAP [facility] Planned procedure site: [facility] OR Date: 05/20/20 Anesthesia Evaluation Norman [...] Cardiovascular Pertinent negatives: hypertension ; CAD ; NM ; CABG ; valvular heart disease; valve [...] days. Pre- procedure COVID19 testing performed at [facility]. Result pending- to be reviewed by surgeon's [...] asphericity. There is no fracture or dislocation. STRATE ASSISTANT STRATE ASSISTANT STRATE ASSISTANT documented in this encounter Consult Notes * Marlon Arias OT - 05/23/2020 11:40 AM CST [facility] Occupational Therapy Evaluation Patient Name: Norman Lane Date of Service: 05/23/2020 Date of : 1965 Age: 55 y.o.male Room: [facility] OR/- Admit Date: 05/23/2020 Primary Diagnosis: UNILATERAL PRIMARY OSTEOARTHRITIS, RIGHT HIP/NV TOTAL HIP ARTHROPLASTY Referring Practitioner: Claude Colbert [...] Mobility Equipment: wheeled walker Home ADL Equipment: Waterproofing Supervisor Level of Hume: Independent with ADLs, Independent with transfers and Independent with ambulation Driving: Yes 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 Discharge Recommendation: Home with intermittent assist, Home with family Comments: available to assist at home during recovery 21/12 Marlon Arias OT STRATE ASSISTANT * Rosalva Meza, PT - 05/23/2020 10:57 AM CST [facility] Physical Therapy Initial Evaluation Patient Name: Norman Lane Date of Service: 05/23/2020 Date of : 1965 Age: 55 y.o. male Room: [facility] OR/- Admit Date: 05/23/2020 Primary Diagnosis: UNILATERAL PRIMARY OSTEOARTHRITIS, RIGHT HIP/NV TOTAL HIP ARTHROPLASTY Referring Practitioner: Claude Colbert [...] with slide board) 1x10 Comments: Performed per [facility] AWILDA protocol. Formal Balance Assessment: Formal balance [...] appropriately per protocol with assistance from joint head tennis coach as needed in order to safely [...] family, Home Health PT Rosalva Meza PT STRATE ASSISTANT documented in this encounter Miscellaneous Notes * Perioperative Nursing Note - Melissa Fitzgerald RN - 05/23/2020 12:30 PM MAGISTRATE ASSISTANT Discharge instructions given to patient and spouse. PT and OT worked with patient and cleared him for discharge from their standpoint. Dr. Colbert has spoken to patient postop. TRANSIT COACH OPERATOR and case checker have all spoken to patient/spouse. Patient tolerating PO, denies nausea, pain tolerable. STRATE ASSISTANT * Perioperative Nursing Note - Sheree Marshall RN - 05/23/2020 11:[address] CST !120 Dr Driscoll at bedside for [ost op eval and post discharge instructions STRATE ASSISTANT * Op Note - Claude Colbert MD [...] RIGHT TOTAL HIP - DEPUY (Right) - [place]/Bimentum Cup Actis Stem (CloudSpongeuy) ANESTHESIA: Spinal IMPLANTS: Implant Name Type Inv. Item Serial No. Floorhand Lot No. LRB No. Used Action BI-MENTUM PRESSFIT CUP 55 [id number] [employer] [id number] Right 1 Implanted BIMENTUM PE LINER 28/55 [id number] [employer] [id number] Right 1 Implanted DEPU[employer] [id number] ACTIS COLLAR HIP 9 HIGH OFFSET STEM FEMORAL - [id number] [employer]PU[employer] [id number] Actis Collar Hip 9 High Offset Stem Femoral Depuy Orthopaedics Inc [id number] Right 1 Implanted DEPU[employer] [id number] ARTICUL/NNAMDI 28MM CEMENTLESS HIP +1.5MM 12/14 TAPER HEAD FEMORAL LATEX FREE - [id number] [employer]PU[employer] [id number] Articul/nnamdi 28mm Cementless Hip +1.5mm 12/14 Taper Head Femoral Latex Free Depuy Orthopaedics Inc [id number] Right 1 Implanted OPERATIVE DETAILS Estimated Blood [...] prominences and peripheral nerves were padded. A surgicaltime out was taken to confirm the operative side. The patient was given prophylactic antibiotics. The hip was prepped and draped in usual sterile fashion. I made a super mini incision approach to thehip. The incision was carried through the subcutaneous tissue to the underlying fascia octavio and G-max fascia which were incised in line with the skin incision. The Charnley retractor was placed. The p iriformis and external rotators were released. The hip [...] all noncritical portions of the procedure. Fellow tiler's assistant There was no qualified orthopedic resident [...] 9:20 AM No Resident involved on case STRATE ASSISTANT * Brief Op Note - Mark Hawthorne MD - 05/23/2020 8:00 AM CST Operative Progress Note Surgical Team: Surgeon(s) and Role: * Claude Colbert MD - Primary * Mark Hawthorne MD - Fellow Anesthesiologist: Jeb Frye MD N[facility]: Kristy Guerin CRNA Agricultural Engineer: Greer Gibbs RN Scrub: Cecil Lancaster ST SUMMONS SERVER: Shobha Haji RN FLOAT: Jack Stephenson RN [...] Implant Name Type Inv. Item Serial No. Floorhand Lot No. LRB No. Used Action BI-MENTUM PRESSFIT CUP 55 [id number] [employer] [id number] Right 1 Implanted BIMENTUM PE LINER 28/55 [id number] [employer] [id number] Right 1 Implanted DEPUY OR[employer] [id number] ACTIS COLLAR HIP 9 HIGH OFFSET STEM FEMORAL - [id number] [employer]PU[employer] [id number] Actis Collar Hip 9 High Offset Stem Femoral Depuy Orthopaedics Inc [id number] Right 1 Implanted DEPUY OR[employer] INC [id number] ARTICUL/NNAMDI 28MM CEMENTLESS HIP +1.5MM 12/14 TAPER HEAD FEMORAL LATEX FREE - [id number] DEPUY ORTHOPAEDICS INC [id number] Articul/nnamdi 28mm Cementless Hip +1.5mm 12/14 Taper Head Femoral Latex Free Depuy Orthopaedics Inc [id number] Right 1 Implanted Blood/Blood Products Transfused: none mls Complications: None Condition on Discharge from the operating room was stable Ludwin Hawthorne MD Date: 05/23/2020 Time: 8:38 AM No Resident involved on case STRATE ASSISTANT documented in this encounter Plan of Treatment Not on file documented as of this encounter Procedures Procedure Name Priority Date/Time Associated Diagnosis Comments XR PELVIS ORTHO VIEW STAT 05/23/2020 9:39 AM MAGISTRATE ASSISTANT ARTHROPLASTY TOTAL HIP - DEPUY 05/23/2020 7:36 AM MAGISTRATE ASSISTANT Primary osteoarthritis of right hip documented in this encounter Results * XR Pelvis Ortho View (05/23/2020 9:39 AM MAGISTRATE ASSISTANT) Anatomical Region Laterality Modality Body, Pelvis N/A Computed Radiogr aphy 05/23/2020 9:41 AM MAGISTRATE ASSISTANT Impressions 05/23/2020 9:41 AM MAGISTRATE ASSISTANT 1. New right total hip arthroplasty in near-anatomic alignment. Electronically signed by: Jeffrey Young M.D. Narrative 05/23/2020 9:41 AM MAGISTRATE ASSISTANT EXAM: 1. ??XR PELVIS ORTHO VIEW HISTORY: [...] alignment. Electronically signed by: Jeffrey Young M.D. Mrak Hawthorne MD IMG XR PROCEDURES Final Result documented in this encounter Visit Diagnoses Diagnosis Primary osteoarthritis of right hip- Primary Right hip pain Pain in joint, pelvic region and thigh Primary osteoarthritis of right hip RUI on CPAP Class 2 obesity in adult Primary osteoarthritis of right hip documented in this encounter Admitting Diagnoses Diagnosis Primary osteoarthritis of right hip documented in this encounter Administered Medications Inactive Administered Medications - up to 3 most recent administrations Medication Order MAR [facility] Action Date Dose Rate Site acetaminophen (TYLENOL) tablet 650 mg 650 mg, oral, Once, On Liliya 05/23/20 at 0645, For 1 dose, Pre-Op, Indications: PainIndications:Pain Given 05/23/2020 6:24 AM MAGISTRATE ASSISTANT 650 mg bupivacaine 0.5%-EPINEPHrine 1:200,000 PF 60 mL and ketorolac 30 mg solution As needed, Starting on Liliya 05/23/20 at 0816, Intra-Op Given 05/23/2020 8:16 AM MAGISTRATE ASSISTANT 61 mL Surgical Site ceFAZolin (ANCEF) 3,000 mg in sodium chloride 0.9 % 3,000 mL irrigation solution 3,000 mg, irrigation, Once, On Liliya 05/23/20 at 0645, For 1 dose, Intra-Op, Have ready for intra-op administration. Given 05/23/2020 9:08 AM MAGISTRATE ASSISTANT 3,000 mg Surgical Site HYDROcodone-acetaminophen (NORCO) 5-325 mg per tablet 1 tablet 1 tablet, oral, Every 20 min PRN, 3rd line for pain, breakthrough pain, May give TWO doses at the same time for severe pain after consulting with Anesthesiologist, Starting on Liliya 05/23/20 at 0904, For 2 doses, Phase I, When able to tolerate PO., Indications: PainIndications:Pain Given 05/23/2020 10:51 AM MAGISTRATE ASSISTANT 1 tablet Lactated Ringer's (LR) bolus 1,000 mL 1,000 mL, intravenous, Once, On Liliya 05/23/20 at 0645, For 1 dose, Pre-Op New Bag 05/23/2020 6:34 AM MAGISTRATE ASSISTANT 1,000 mL Lactated Ringer's (LR) infusion 30 mL/hr, intravenous, Continuous, Starting on Liliya 05/23/20 at 0645, Pre-Op, Use a 500 ml bag for End Stage Renal Disease Patients New Bag 05/23/2020 8:42 AM MAGISTRATE ASSISTANT New Bag 05/23/2020 8:07 AM MAGISTRATE ASSISTANT New Bag 05/23/2020 7:21 AM MAGISTRATE ASSISTANT 30 mL/hr 30 mL/hr ondansetron (ZOFRAN) injection [...] Recently Administered Medications Times are shown in MAGISTRATE ASSISTANT. Scheduled Medication Order 05/21/2020 05/22/2020 05/23/2020 acetaminophen [...] of skin closure, Indications: Postoperatvie Pain Management 0645 (Due) ketorolac (TORADOL) injection 30 mg 30 mg, intravenous, Every 6 hours, First dose on Liliya 05/23/20 at 0945, For 2 doses, For Adult IV push, administer over 15 seconds, Indications: Pain 0945 (Due) Lactated Ringer's (LR) bolus 1,000 mL [...] at 0945, For 1 dose, Phase I 0945 (Due) senna-docusate (PERICOLACE) 8.6-50 mg per tablet 2 tablet 2 tablet, oral, 2 times daily, First dose on Liliya 05/23/20 at 0945, Hold for diarrhea., Indications: constipation 0945 (Due) tranexamic acid (CYKLOKAPRON) 1,000 mg/100 mL [...] Kristy Guerin CRNA)1230 (Stopped - Provider: Melissa Fitgzerald RN) Lactated Ringer's (LR) infusion 125 mL/hr, [...] 1st line pain med for patients at [facility]. Use as 2nd line at after consulting with anesthesiologist., Starting on Liliya [...] enteric coated tablet 325 mg 1 05/01 ceFAZolin (ANCEF) 1 gram/10 mL in sterile water (premix) 1,000 mg 1 05/23/2020 ceFAZolin (ANCEF) 1 gram/10 mL in sterile water (premix) 3,000 mg 1 05/23/2020 dexAMETHasone (DECADRON) 4 m g/mL [...] 05/23/2020 documented in this encounter Care Teams Jigger Machine Operator Relationship Specialty Start Date End Date Johnnie Red MD [address] [place] [address] PCP - General Family Medicine 02/14/20 documented as of this encounter
--- OUTSIDE RECORDS SUMMARY | 2024-06-03 08:15 | XMS_ITS | Encounter Summary ---
Author Organization [facility] Address [address] [place] [address] Phone Care Team Providers Care Polymer Tester Name Role Phone Johnnie Red MD Primary Care Provider [phone] Encounter Details Date Type Department Care Team (Late st Contact Info) Description 05/16/2020 Telephone [facility] Orthopaedic Surgery [address] [place] [address] Medical Office Building [address] [place] [address] Claude Colbert MD [address] [facility] [address] [place] [address] Social History Tobacco Use Types Packs/Day Years Used Date Smoking Tobacco: Never Sex and Gender Information Value Date Recorded Sex Assigned at Not on file Legal Sex Male 10:40 AM CDT Gender Identity Not on file Sexual Orientation Not on file documented as of this encounter Miscellaneous Notes * Telephone Encounter - Veronique Ritchie - 05/16/2020 10:04 AM CST OS Recon - Note PreOp Surgery Arrival Time Call Arrival Time: 515 Surgery Date: 05-23-20 Arrival Location: [facility] Main Entrance/Registration NPO after MN understood: Yes\ Clear liquids until: 5:00 Confirm patient has picked up Rx for Mupirocin: Yes Verify start date/instructions: Yes Confirm patient has picked up Celebrex: Yes Verify start date/instructions: Yes Confirm patient has Chlorhexidine soap: Yes Verify start date/instructions: Yes Remind patient to shower with special soap on AM of surgery date. Confirm patient understands exactly what medications should be held 1 week prior to surgery: Yes Verify patient understands exactly what medications to take AM of surgery: Yes Verify if patient has CPAP machine & remind them to bring it with them to the hospital: No: Verify patient insurance: Yes Verify patient still has a joint college coach that will be caring for them AT LEAST 3-5 days/24 hours a day post op: Yes If patient having Posterior AWILDA -- verify patient has a raised toilet seat & hip kit: Yes Instruct patient to have joint college coach at the hospital on POD#1 to attend D/C class &/or observe nursing staff/OT/PT sessions: Yes Verify changes in medical status: No: If Yes, comment: Verify clean skin integrity: Yes If No, comment: YTICS SENIOR MANAGER documented in this encounter Plan of Treatment Not on file documented as of this encounter Visit Diagnoses Not on filedocumented in this encounter Care Teams Polymer Tester Relationship Specialty Start Date End Date Johnnie Red MD [address] [place] [address] PCP - General Family Medicine 02/14/20 documented as of this encounter
--- OUTSIDE RECORDS SUMMARY | 2024-06-03 08:15 | XMS_ITS | Encounter Summary ---
Author Organization [facility] Healthcare Address [address] [place] [address] Care Team Providers Care Security Clerk Name Role Phone Johnnie Red MD Primary Care Provider [phone] Encounter Details Date Type Department Care Team (Latest Contact Info) Description 05/23/2020 9:17 AM VEHICLE GLASS TECHNICIAN - 05/23/2020 11:59 PM [facility] Hospital Encounter [facility] [address] [place] [address] Mark Hawthorne MD [address] [facility] [address] [place], [place] [id number] Discharge Disposition: Discharge to home or self [...] PELVIS ORTHO VIEW STAT 05/23/2020 9:39 AM VEHICLE GLASS TECHNICIAN documented in this encounter Results * XR Pelvis Ortho View (05/23/2020 9:39 AM VEHICLE GLASS TECHNICIAN) Anatomical Region Laterality Modality Body, Pelvis N/A Computed Radiogr aphy 05/23/2020 9:41 AM VEHICLE GLASS TECHNICIAN Impressions 05/23/2020 9:41 AM VEHICLE GLASS TECHNICIAN 1. New right total hip arthroplasty in near-anatomic alignment. Electronically signed by: Jeffrey Young M.D. Narrative 05/23/2020 9:41 AM VEHICLE GLASS TECHNICIAN EXAM: 1. ??XR PELVIS ORTHO VIEW HISTORY: [...] on filedocumented in this encounter Care Teams Security Clerk Relationship Specialty Start Date End Date Johnnie Red MD [address] [place] [address] PCP - General Family Medicine 02/14/20 documented as of this encounter
--- OUTSIDE RECORDS SUMMARY | 2024-06-03 08:15 | XMS_ITS | Encounter Summary ---
Author Organization [facility] Healthcare Address [address] [place] [address] Care Team Providers Care Manager Medicare Marketing Name Role Phone Johnnie Red MD Primary Care Provider [phone] Reason for Referral * Diagnostic Imaging (Routine) - Closed Specialty Diagnoses / Procedures Referred By Contac t Referred To Contact Diagnoses Right hip pain Procedures XR Hip Right 2 or 3 Views W Pelvis Claude Colbert MD [address] [facility] [address] [place] [address] Phone: tel: fax: [place] [phone] [place] [phone] Referral ID Status Reason Start Date Expiration Date Visits Re quested Visits Authorized [id number] Closed 04/18/2020 05/18/2021 1 1 HAND TUNA BOAT Reason for Visit * Diagnostic Imaging (Routine) - Closed Specialty Diagnoses / Procedures Referred By Contac t Referred To Contact Diagnoses Right hip pain Procedures XR Hip Right 2 or 3 Views W Pelvis Claude Colbert MD [address] [facility] [address] [place] [address] Phone: tel: fax: [place] [address] [place] [phone] Referral ID Status Reason Start Date Expiration Date Visits Re quested Visits Authorized [id number] Closed 04/18/2020 05/18/2021 1 1 Encounter Details Date Type Department Care Team (Latest Contact Info) Description 04/29/2020 9:45 AM DECKHAND TUNA BOAT - 04/29/2020 11:59 PM [facility] Hospital Encounter [id number] [address] [facility] [address] [place] [address] Claude Colbert MD [address] [facility] [address] [place] [address] Right hip pain Discharge Disposition: Discharge to home [...] Time of Discharge celecoxib (CeleBREX) 200 mg capsuleIndication s:Osteoarthritis, Postoperative Acute Pain Take 1 tablet twice daily after surgery until prescription is finished. You should already have this prescription at home. Start on morning of 05/24/2020. 10 capsule 05/23/2020 mupirocin (BACTROBAN) 2 % ointmentIndicatio ns:Right hip pain Apply topically 2 (two) times a day for 5 days APPLY TO NOSTRILS TWICE A DAY FOR 5 DAYS PRIOR TO SURGERY. 22 g 04/29/2020 0 aspirin 325 mg enteric coated tabletIndications :Deep Vein Thrombosis Prevention Take 1 tablet (325 mg total) by mouth 2 (two) times a day 84 tablet 05/23/2020 2 celecoxib (CeleBREX) 200 mg capsuleIndication s:Osteoarthritis, Postoperative Acute Pain TAKE 2 PILLS WITH BREAKFAST THE DAY BEFORE SX. TAKE 1 PILL BID AFTER DISCHARGE. 10 capsule 04/29/2020 0 chlorhexidine (HIBICLENS) 4 % external liquidIndications :Skin Disinfection Use 1/4 cup of soap with daily showers starting 5 days before surgery, last shower is the morning of surgery 473 mL 04/29/2020 0 HYDROcodone-aceta minophen (NORCO) 5-325 mg per tabletIndications :Pain Take 1-2 tablets by mouth every 4 (four) hours as needed for pain 56 tablet 05/23/2020 2 senna-docusate (PERICOLACE) 8.6-50 mgIndications:con stipation Take 2 tablets by mouth 2 (two) [...] VIEWS Schedule Routine, Read Routine (OP Routine) 04/29/2020 10:17 AM DECKHAND TUNA BOAT Right hip pain documented in this encounter Results * XR Hip Right 2 or 3 Views W Pelvis (04/29/2020 10:17 AM DECKHAND TUNA BOAT) Anatomical Region Laterality Modality Lower Extremities, Hip, Pelvis Right C omputed Radiography 04/29/2020 10:4 2 AM DECKHAND TUNA BOAT Impressions 04/29/2020 10:42 AM DECKHAND TUNA BOAT Moderate right and mild left hip osteoarthritis. Electronically signed by: Navi Paul M.D. Narrative 04/29/2020 10:42 AM DECKHAND TUNA BOAT EXAMINATION: XR HIP RIGHT 2 OR 3 VIEWS W PELVIS HISTORY: Right hip osteoarthritis FINDINGS: 3 view examination of the right hip is read without comparison. 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 There is no fracture or dislocation. Procedure Note Navi Paul MD - 04/29/2020 EXAMINATION: XR HIP RIGHT 2 OR 3 VIEWS W PELVIS HISTORY: Right hip osteoarthritis FINDINGS: 3 view examination of the right hip is read without comparison. 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 There is no fracture or dislocation. IMPRESSION: Moderate right and mild left hip osteoarthritis. Electronically signed by: Navi Paul M.D. Claude Colbert MD IMG XR PROCEDURES Final R esult documented in this encounter Visit Diagnoses Diagnosis Right hip pain Pain in joint, pelvic region and thigh documented in this encounter Care Teams Manager Medicare Marketing Relationship Specialty Start Date End Date Johnnie Red MD [address] [place] [address] PCP - General Family Medicine 02/14/20 documented as of this encounter
--- OUTSIDE RECORDS SUMMARY | 2024-06-03 08:15 | XMS_ITS | Encounter Summary ---
Author Organization [facility] Address [address] [place] [address] Phone Care Team Providers Care Pheresis Specialist Name Role Phone Johnnie Red MD Primary Care Provider [phone] Reason for Referral * Diagnostic Imaging (Routine) - Closed Specialty Diagnoses / Procedures Referred By Rowdy t Referred To Contact Diagnoses Right hip pain Procedures XR Hip Right 2 or 3 Views W Pelvis Claude Colbert MD [address] [address] Phone: tel: fax: [address] [address] Referral ID Status Reason Start Date Expiration Date Visits Re quested Visits Authorized [id number] Closed 04/18/2020 05/18/2021 1 1 RAL RESOURCE TECHNICIAN Reason for Visit * Reason Comments Pain Encounter Details Date Type Department Care Team (Late st Contact Info) Description 04/29/2020 10:00 AM NATURAL RESOURCE TECHNICIAN Office Visit [facility] Orthopaedic Surgery [address] [facility] [address] [place] [address] Claude Colbert MD [address] [facility] [address] [place] [address] Right hip pain (Primary Dx); Unilateral primary osteoarthritis, right hip Social History Tobacco Use Types Packs/Day Years Used Date Smoking Tobacco: Never Sex and Gender Information Value Date Recorded Sex Assigned at Not on file Legal Sex Male 10:40 AM CDT Gender Identity Not on file Sexual Orientation Not on file documented as of this encounter Ordered Prescriptions Prescription Sig Dispense Quantity Refills Last Filled Start Date End Date chlorhexidine (HIBICLENS) 4 % external liquidIndications: Skin Disinfection Use 1/4 cup of soap with daily showers starting 5 days before surgery, last shower is the morning of surgery 473 mL 04/29/2020 0 celecoxib (CeleBREX) 200 mg capsuleIndications :Osteoarthritis,Po stoperative Acute Pain TAKE 2 PILLS WITH BREAKFAST THE DAY BEFORE SX. TAKE 1 PILL BID AFTER DISCHARGE. 10 capsule 04/29/2020 0 mupirocin (BACTROBAN) 2 % ointmentIndication s:Right hip pain Apply topically 2 (two) times a day for 5 days APPLY TO NOSTRILS TWICE A DAY FOR 5 DAYS PRIOR TO SURGERY. 22 g 04/29/2020 0 documented in this encounter Progress Notes * Claude Colbert MD - 04/29/2020 10:00 AM CST Images from the original note were not included. NEW HIP PATIENT VISIT CHIEF COMPLAINT: right hip pain. HISTORY OF PRESENT ILLNESS: Norman Lane is a 55 y.o. male with right hip pain. he has had pain for 1 year. It is located in the groin and lateral. It is worse with walking for any distance. He takes meloxicam for pain. He has had corticosteroid or hyaluronate injection with limited benefit. He has had physical therapy or structured exercise in the past year. The problem is getting worse. and is interfering with normal ADL. Mccray Hip Score: RIGHT HIP PAIN: moderate LIMP: no SUPPORT: none DISTANCE: 6 blocks STAIRS: banister SITTIN hour SHOES/SOCKS: difficult PUBLIC TRANSPORTATION: yes PAST MEDICAL HISTORY: History reviewed. No pertinent past medical history. PAST SURGICAL HISTORY: History reviewed. No pertinent surgical history. MEDICATIONS: No current outpatient medications on file. ALLERGIES: No Known Allergies SOCIAL HISTORY: Social History Socioeconomic History ??? Marital status: Spouse name: Not on file ??? Number of children: Not on file ??? Years of education: Not on file ??? Highest education level: Not on file Occupational History ??? Not on file Social Needs ??? Financial resource strain: Not on file ??? Food insecurity Worry: Not on file Inability: Not on file ??? Transportation needs Medical: Not on file Non-medical: Not on file Tobacco Use ??? Smoking status: Never Smoker Substance and Sexual Activity ??? Alcohol use: Not on file ??? Drug use: Not on file ??? Sexual activity: Defer Lifestyle ??? Physical activity Days per week: Not on file Minutes per session: Not on file ??? Stress: Not on file Relationships ??? Social connections Talks on phone: Not on file Gets together: Not on file Attends scientology service: Not on file Active member of club or organization: Not on file Attends meetings of clubs or organizations: Not on file Relationship status: Not on file ??? Intimate partner violence Fear of current or ex partner: Not on file Emotionally abused: Not on file Physically abused: Not on file Forced sexual activity: Not on file Other Topics Concern ??? Not on file Social History Narrative ??? Not on file FAMILY HISTORY: History reviewed. No pertinent family history. ROS: 10 systems reviewed. Significant findings include negative PHYSICAL EXAM: Height: Weight: BMI: There is no height or weight on file to calculate BMI. Right Hip Hip Pain is noted: groin, lateral, anterior thigh Skin Status: normal Trendelenberg: negative Range of Motion: Start of flexion: 0 End of flexion: 90 Abduction: 20 Adduction: 10 ERE: 10 SHEILA: 0 Deformity: none Leg Length Discrepancy: none Abductor Strength: 5/5 Dependent Edema: no Vascular status: palpable pulses distally Neurological Status: intact to light touch and gross motor RADIOGRAPHS: X-rays today show severe osteoarthritis right hip. Complete loss of joint space. There is subchondral sclerosis. There is peripheral osteophytes of the femoral head and acetabulum. There is flattening of femoral head. DIAGNOSES: End-stage osteoarthritis of the right hip that has failed conservative treatment. IMPRESSION: This patient has pain of the right hip which is impacting daily activities significantly. I reviewed the treatment options, including activity modification, weight loss, physical therapy, analgesic and anti-inflammatories, steroid injections, bracing, cooled radiofrequency, and finally hip replacement. I had a long discussion with the patient concerning operative treatment. The patient is a candidatefor right THR. Risks and benefits of surgery were discussed including but not limited to risk of , infection, issues of wound healing including chronic drainage that cannot be resolved, persistent and/or unexplained pain, thromboembolic incident, anesthetic complications, and possible medical complications. Implant-related problems were also mentioned and can include leg length inequality potentially requiring shoe lift, component loosening, instability, dislocation, or wear of the implant, which may require revision surgery. The possibility of [...] the patient is a good candidate for right arthroplasty at the patient's convenience. Preoperative risk assessment by the patient's primary care physician and Anesthesia Virgilio Sheikh MD ATTENDING ATTESTATION I was present for the critical portion of the history, physical examination and participated in theradiographic review and medical decision making on this patient. I agree with the findings in the report of the above resident/fellow dictating using Aspire Direct software. Claude Colbert MD RAL RESOURCE TECHNICIAN * Veronique Ritchie - 04/29/2020 10:00 AM CST Patient Information Patient Name: Norman Lane Gender: male Date of : 1965 Age: 55 y.o. (home) Procedure: R AWILDA OR Date: 05-23-20 OR Location: [facility] Joint Motor Vehicle Examiner Name: Hannah Telephone: PCP: Johnnie Red MD Pre-Op Scheduling Anesthesia: Spinal Preferred Blood Requirements: T & S Consents: Surgery procedure consent obtained. Blood transfusion consent obtained. Preadmission Testing/Anesthesia H&P: Date: 05-20-20 Time: 730 Pre-Op Joint Class Scheduled for: Date: 05-08-20 Time: 2 via zoom Pre-Op Meds/Anticoag: Instructed to stop primary prevention ASA/hormones/supplements 7 Days prior to surgery Instructed to stop NSAIDS 5 days prior to surgery Anticoagulation protocol discussed: ASA/Active Care Pumps 10 days Decolonization Instructions: Skin preparations guide Mupirocin Rx Prescription for Celebrex 400mg The patient was given a AWILDA teaching packet including surgery guidelines with instructions, DECOL protocol instructions, instructions to stop all NSAID's, Blood thinners and aspirin products one weekbefore surgery, as well as office contacts to call if they have any additional questions prior to their surgery date. Current Outpatient Medications: ??? celecoxib (CeleBREX) 200 mg capsule, TAKE 2 PILLS WITH BREAKFAST THE DAY BEFORE SX. TAKE 1 PILLBID AFTER DISCHARGE., Disp: 10 capsule, Rfl: 0 ??? chlorhexidine (HIBICLENS) 4 % external liquid, Use 1/4 cup of soap with daily showers starting 5 days before surgery, last shower is the morning of surgery, Disp: 473 mL, Rfl: 0 ??? mupirocin (BACTROBAN) 2 % ointment, Apply topically 2 (two) times a day for 5 days APPLY TO NOSTRILS TWICE A DAY FOR 5 DAYS PRIOR TO SURGERY., Disp: 22 g, Rfl: 0 He has No Known Allergies. Risk Assessment RUI RISK: No STOP BANG Score: CMP(CO2): Sleep Study: CPAP/BIPAP: No No Bone Health screen - Vitamin D Level Ordered: Yes No Oral Health: Healthy teeth Smoking History: No Family History of DVT/PE: No He reports that he has never smoked. He does not have any smokeless tobacco history on file. Audit-C Alcohol Screening How often do you have a drink containing alcohol?: 2-3 times a week How many standard drinks containing alcohol do you have on a typical day?: 1 or 2 drinks How often do you have six or more drinks on one occasion?: Never Audit-C Score: 3 Male: <4 (negative) Illegal Drug Use: Never Functional/Home Assessment lead caregiver assistance: Live in available day/night In a: Home Home Accessibility: n/a Home Environment: Entry Steps: Yes: Number of Steps: 1 Bedroom Location: 1st Floor Bathroom Location:1st Floor What Medical Devices/Equipment used: none Are you able to self-manage activities of daily living: ADL's: Bathing, Dressing, Self-feeding, Personal Hygiene and Toilet Hygiene IADL's: Housework, Medications, Managing Money, Shopping and Telephone Transportation: Self Pre-Op Ambulation: Independent Community distances Projected Post-Op Weight bearing: Full or WBAT Home Location: < 150 miles RAPT: What is your age group?: 50-65 Years Gender: Male How far on average can you walk? (a block is 200 meters): Two blocks or more (+/-rest) Which gait aid do you use most? (more often than not): None Do you use community supports? (home-help, meals on wheels, district nursing): None or one per week Will you live with someone who can care for you after your operation?: Yes RAPT Total Score: 12 (If <9 send to [facility]'s floor care team for review) (If <6 [...] Home with < 5 Home Health visits RRAT Infection Risk Factors: Is patient positive for MRSA colonization at CPAP?: No Every Patient is decolonized per guideline. - Nasal Mupirocin (Bid x5 days pre-op) or povidone-iodine (DOS) and chlorhexidine gluconate (CHG) showers (QD x5 days prior to surgery & morning of surgery) and appropriate antibiotic coverage. - If these requirements are not met then HARD STOP until protocol implemented. Smoking (Tobacco Use): Current Smoker? No Obesity: What is the patient's BMI? BMI 30 - 35 Cardiovascular Disease: Patient has a history of Coronary Artery Disease (CAD), stroke, Peripheral Vascular Disease or VTED, is 60 years of age or older and has at least 2 cardiac risk factors: No Venous Thromboembolic Disease: Does the patient have a history of Pulmonary Embolus or Deep Vein Thrombosis? No Does the patient have any of the following VTED risk factors: CVA, COPD, BMI>30, CAD, Stroke, PVD, or Activated Protein C Resistance? No Neurocognitive, Psychological and Behavioral Problems (including alcohol and drug dependency): Does the patient have a history of alcohol abuse or chronic active narcotic dependency? No Does the patient have any neurocognitive deficits such as traumatic brain injury (TBI)l active psychiatric illness, dementia, etc? No Was the patient's last calculated PROMIS depression score greater than or equal to 60? No Physical Deconditioning: Patient is nonambulatory or needs assistance with transfer status? No Patient has comorbidities affecting physical function and ambulation? No Diabetes: Is the patient diabetic? No Last calculated Fasting Blood Glucose > 180 mg/dl? Last calculated Hgb A1c > 8? Is DM well controlled? RRAT Total Score: 1 Recommendations for Preoperative Care/Optimization: < 2 Proceed with Scheduling Surgery. Veronique Ritchie RAL RESOURCE TECHNICIAN documented in this encounter Plan of Treatment Not on file documented as of this encounter Results * XR Hip Right 2 or 3 Views W Pelvis (04/29/2020 10:17 AM NATURAL RESOURCE TECHNICIAN) Anatomical Region Laterality Modality Lower Extremities, Hip, Pelvis Right C omputed Radiography 04/29/2020 10:4 2 AM NATURAL RESOURCE TECHNICIAN Impressions 04/29/2020 10:42 AM NATURAL RESOURCE TECHNICIAN Moderate right and mild left hip osteoarthritis. Electronically signed by: Navi Paul M.D. Narrative 04/29/2020 10:42 AM NATURAL RESOURCE TECHNICIAN EXAMINATION: XR HIP RIGHT 2 OR 3 [...] osteoarthritis. Electronically signed by: Navi Paul M.D. us Claude Colbert MD IMG XR PROCEDURES Final R esult documented in this encounter Visit Diagnoses Diagnosis Right hip pain- Primary Pain in joint, pelvic region and thigh Unilateral primary osteoarthritis, right hip Right hip pain Pain in joint, pelvic region and thigh documented in this encounter Care Teams Pheresis Specialist Relationship Specialty Start Date End Date Johnnie Red MD [address] [place] [address] PCP - General Family Medicine 02/14/20 documented as of this encounter
--- OUTSIDE RECORDS SUMMARY | 2024-06-03 08:15 | XMS_ITS | Encounter Summary ---
Author Organization [facility] Healthcare Address [address] [place] [address] Care Team Providers Care Pipe Turner Name Role Phone Johnnie Red MD Primary Care Provider [phone] Encounter Details Date Type Department Care Team (Latest Contact Info) Description 02/20/2020 9:03 AM CDT - 02/20/2020 11:59 PM CDT Hospital Encounter [facility] [address] [place] [id number] Discharge Disposition: Discharge to home or self [...] Procedure Name Priority Date/Time Associated Diagnosis Comments MR BODY OUTSIDE REFERENCE Routine 02/20/2020 9:03 AM CDT Diagnosis unknown documented in this encounter Results * MR Body Outside Reference (02/20/2020 9:03 AM CDT) Impressions RAD[facility]PACS[facility] - 02/20/2020 9:03 AM CDT These images are for Reference purposes only and have not been reviewed by [facility] Radiology. ??There will be no report generated by a [facility] Radiologist. Narrative RAD_PACS_[facility] - 02/20/2020 9:03 AM CDT EXAMINATION: ??Images For Reference Purposes Only Claude Colbert MD IMG MRI PROCEDURES Final Result Performing Organization Address City/State/ZIP Co oh Phone Number RAD_PACS[facility] documented in this encounter Visit Diagnoses Not on filedocumented in this encounter Care Teams Pipe Turner Relationship Specialty Start Date End Date Johnnie Red MD [address] [place] [address] PCP - General Family Medicine 02/14/20 documented as of this encounter
--- OUTSIDE RECORDS SUMMARY | 2024-06-03 08:16 | XMS_ITS | Continuity of Care Document ---
Author Organization [facility] Address [address] [place] [address] Phone Care Team Providers Care Insurance Risk Analyst Name Role Phone Doreen GONZALEZ, Jonnie Unavailable Unavailable Advance Directives Directive Yes / No Effective Date File Name No Information Encounters Encounter Description Practice Location Reason(s) For Visit Diagnoses Date Provider Providers Copied on Encounter [facility], [address], [place], [place], [id number], tel:[phone] [facility] No Information Doreen Cristina. [address] [place] [address], [id number], [place]. tel:[phone] Family History Family Member Type Diagnosis Age At Onset No Information Payers Payer name Insurance type Covered constitution party ID Authoriza tion(s) [facility] CI [id number] Social History Type Description Quantity Date Captured Comments Sex Male Smoking Status No Information Chief Complaint And Reason For Visit No Information Reason For Referral Reason For Referral No Information History Of Present Illness Encounter Date Complaint History Of Prese nt Illness No Information Functional Status Date Functional Assessmen t No Information Instructions Date Instruction Additional Infor mation No Information Assessments Type Assessment Date No Information Patient Care Teams Name Effective Dates (start - stop) Status Members No Information
[2024-06-26 12:05] VITALS: BMI 35.3
--- NOTE | 2024-06-26 12:05 | P.SLEEP_ITS ---
Sleep Study Date of Study: 05/29/24 Ordering Provider: Ladi Andujar, BHARATH Interpreting Physician: Shana Maharaj, Sleep Study Type: Split Polysomnogram Height: 1.93 m Weight: 131.542 kg Body Mass Index: 35.3 Neck Circumference (inches): 19 [place]: 2 Reason for Sleep Study Previously diagnosed with RUI. Current CPAP machine is near end of motor life. Sleep History The patient is a 59-year-old male that had a sleep study ordered to get a new CPAP machine. The patient denies awakening from sleep short of breath. He denies awakening at night with heartburn, belching or cough. He denies snoring. He denies having trouble sleeping when he has a cold. He denies waking up gasping for air throughout the night. He denies having breathing problems at night observed by himself or others. He denies sweating excessively at night. He denies having heart palpitations or irregular heartbeats during the night. He denies falling asleep during the day and while driving. He denies sleep paralysis, cataplexy and hypnagogic / hypnopompic hallucinations. He denies having trouble at school or work due to sleepiness. He denies feeling afraid of going to sleep. He denies having nightmares. He occasionally remembers his dreams. He denies having thoughts racing through his mind. He denies feeling sad, depressed or anxious. He denies having muscular tension. He denies noticing parts of his body jerk. He denies kicking during the night. He denies having crawling and aching feelings in his legs and denies having leg pain during the night. He denies grinding his teeth during sleep and denies awakening with morning jaw pain. He denies being bothered by pain during the day and denies being awakened by pain during the night. He denies waking up feeling stiff in the morning. He denies waking up with sore or achy muscles. He denies waking up with pain in the neck, spine and other joints. He goes to bed at 9:00 p.m. on both weekdays and weekends. It takes him 15 minutes to fall asleep. He wakes up once throughout the night to urinate and is able to fall back asleep within 10 minutes. He wakes up at 5:30 a.m. on weekdays and at 6:00 a.m. on the weekends. He typically gets 8 hours of sleep per night. He will stay in bed for a few minutes after waking up in the morning. He currently lives with his . He denies consuming any caffeinated beverages within 2 hours of bedtime. He denies engaging in physical exercise before bedtime. He denies reading or watching television before falling asleep. He denies taking naps in the afternoon or the evening. He consumes 3 cups of caffeinated beverage per day. He is a former smoker. He consumes 1 alcoholic beverage per day. He denies recreational drug use. Sleep Procedure A full night spllit study using the [employer] multi-channel system recorded the standard physiologic parameters including EEG, EOG, submentalis EMG, anterior tibialis EMG, EKG, body position, nasal and oral airflow using nasal pressure sensor and thermistor.? Respiratory parameters of chest and abdominal movements were recorded with Respiratory Inductance Plethysmography belts. Oxygen saturation was recorded by pulse oximetry. Video monitoring was also performed. Sleep stages, periodic limb movements, and EEG arousals were scored in 30 second epochs according to the criteria of the AASM Scoring Manual. The Apnea-Hypopnea Index was calculated using CMS guidelines for definition of hypopnea with 4% O2 desaturations while scoring respiratory events. Sleep Architecture During the diagnostic portion of the study, the total recording time was 216.1 minutes. The total sleep time was 122.5 minutes. Sleep latency was 11.6 minutes.? REM sleep was not achieved during this portion of the study. Sleep Efficiency was 56.7%. The patient had 20 awakenings for an awakening index of 9.8. Wake after sleep onset time was 82.0 minutes. The patient spent 43.5 minutes, 35.5% of total sleep time in Stage N1. The patient spent 79.0 minutes, 64.5% in Stage N2. The patient spent 0.0 minutes, 0.0% in Stage N3. The patient spent 0.0 minutes, 0.0% in Stage REM sleep. At 01:17:34 AM the patient was placed on PAP treatment and was titrated at pressures ranging from 5 cm H20 up to 9 cm H20. During the treatment portion of the study, the total recording time was 221.9 minutes.? The total sleep time was 172.5 minutes. Sleep latency was 11.5 minutes. REM latency was 41.5 minutes. Sleep Efficiency was 77.7%. Wake after Sleep Onset time was 37.5 minutes. The patient spent 12.0 minutes, 7.0% of total sleep time in Stage N1. The patient spent 97.5 minutes, 56.5% in Stage N2. The patient spent 0.0 minutes, 0.0% in Stage N3. The patient spent 63.0 minutes, 36.5% in Stage REM. Respiratory Analysis During the diagnostic portion of the study, the patient had 37 hypopneas and 1 obstructive apnea for an overall Apnea Hypopnea Index of 18.6 events per hour. The REM Apnea Hypopnea Index was 0. The NREM Apnea Hypopnea Index was 18.6. The patient had a Central Apnea Hypopnea Index of 0. There was no evidence of Brannon-Lazaro Respirations. During the treatment portion of the study, the patient had 3 hypopneas and 1 central apnea for an overall Apnea Hypopnea Index of 1.4 events per hour. The REM Apnea Hypopnea Index was 3.8. The NREM Apnea Hypopnea Index was 0. The patient had a Central Apnea Hypopnea Index of 0.3. There was no evidence of Brannon-Lazaro Respirations. The patient was started on CPAP 5 cm H2O and titrated to CPAP 9 cm H2O. The patient was able to fall asleep starting on CPAP 5 cm H2O. The patient was able to achieve REM sleep starting on CPAP 7 cm H2O. The patient's sleep apnea resolved on the final pressure. On CPAP 9 cm H2O, the patient spent 69 minutes in NREM and 49.5 minutes in REM with 1 central apnea and 4 hypopneas, resulting in an AHI of 2.5. The patient had a sleep efficiency of 76.5% on this pressure setting. Arousals During the diagnostic portion of the study, there were a total of 53 arousals for an arousal index of 26.0.? There were 17 respiratory arousals for an index of 8.3. There were 6 periodic limb movement arousals for an index of 2.9.? There were 5 isolated limb movement arousals for an index of 2.4. There were 26 spontaneous arousals for an index of 12.7. During the treatment portion of the study, there were a total of 16 arousals for an index of 5.6.? There was 1 respiratory arousals for an index of 0.3. There were 6 periodic limb movement arousals for an index of 2.1.? There were 5 isolated limb movement arousals for an index of 1.7. There were 4 spontaneous arousals for an index of 1.4. Periodic Limb Movements During the diagnostic portion of the study, the patient had 5 isolated limb movements with an index of 2.4. The patient had 43 periodic limb movements with an index of 21.1, which is elevated (normal < 15). The patient had a total of 48 limb movements with a total limb movement index of 23.5. During the treatment portion of the study, the patient had 28 isolated limb movements with an index of 9.7. The patient had 182 periodic limb movements with an index of 63.3, which is elevated (normal < 15). The patient had a total of 210 limb movements with a total limb movement index of 73.0. Oximetry Data During the diagnostic portion of the study, the patient had an average oxygen saturation of 93.3% in wake with a minimum oxygen saturation of 90% and a maximum oxygen saturation of 98%. The patient had an average oxygen saturation of 92.6% in sleep with a minimum oxygen saturation of 88.0% and a maximum oxygen saturation of 97.0%. The patient had 85 oxygen desaturations resulting in an Oxygen Desaturation Index of 41.6. The patient spent 0.3 minutes, 0.1% of total sleep time with an oxygen saturation less than 88%. During the treatment portion of the study, the patient had an average oxygen saturation of 94.5% in wake with a minimum oxygen saturation of 91.0% and a maximum oxygen saturation of 98.0%. The patient had an average oxygen saturation of 93.8% in sleep with a minimum oxygen saturation of 90.0% and a maximum oxygen saturation of 97.0%. The patient had 11 oxygen desaturations resulting in an Oxygen Desaturation Index of 3.8. The patient spent 0 minutes of total sleep time with an oxygen saturation less than 88%. Snoring Profile Moderate to loud snoring was present in the baseline portion of the study. The snoring resolved once the patient was titrated to 9 cm H2O. Cardiac Profile The EKG lead showed normal sinus rhythm. No arrhythmias or PVCs were seen. During the diagnostic portion of the study, the average pulse rate was 80.1 bpm.? The minimum pulse rate was 69.0 bpm. The maximum pulse rate was 99.0 bpm. During the treatment portion of the study, the average pulse rate was 75.1 bpm.? The minimum pulse rate was 67.0 bpm. The maximum pulse rate was 93.0 bpm. EEG Profile No signs of seizure activity seen. Assessment and Plan Assessment and Plan (1) RUI (obstructive sleep apnea): Code(s): G47.33 - Obstructive sleep apnea (adult) (pediatric) Status: Acute Assessment and Plan: In the baseline portion of the study, the patient had an overall AHI of 18.6 with desaturation down to 88%. This is consistent with moderate sleep apnea. The patient was started on CPAP 5 cm H2O and titrated to CPAP 9 cm H2O. The patient's sleep apnea resolved on the final pressure with both NREM and REM sleep in the supine position. I recommend that the patient be prescribed CPAP 9 cm H2O,size large F&P Solo nasal pillows, CPAP filters/tubing and heated humidity. This should be used with all episodes of sleep.? Compliance should be reviewed within 31-90 days of starting therapy for usage greater than 4 hours per night greater than 70% of the nights. The patient should be asked about symptoms such as?excessive daytime sleepiness, quality of sleep, decreased nocturia, increased?mental functioning such as memory, mood, and concentration. While the patient had a significant number of periodic limb movements throughout the study, the frequency significantly decreased once he reached the optimal pressure setting. I recommend asking the patient about leg movements during his CPAP compliance visit. Data The data obtained during this sleep study is adequate for interpretation. Certification This sleep study has been reviewed by a board certified sleep medicine physician.
== END 2024-05-30 07:35 | disposition home or self-care (01) ==
PROVIDERS: PCP Family Medicine; Visit Provider Nurse Practitioner
DX: G47.33 Obstructive sleep apnea (adult) (pediatric) (principal)
CPT/HCPCS: 95811

== ENCOUNTER 2024-11-08 14:59 | Outpatient (CLI) | payer OTHER, SELFPAY ==
--- OUTSIDE RECORDS SUMMARY | 2024-11-08 17:31 | XMS_ITS | Continuity of Care Document ---
Author Organization [facility] Address [address] [place] [address] Phone Care Team Providers Care It Consultant Name Role Phone Doreen GONZALEZ, Jonnie Unavailable Unavailable Advance Directives Directive Yes / No Effective Date File Name No Information Encounters Encounter Description Practice Location Reason(s) For Visit Diagnoses Date Provider Providers Copied on Encounter [facility], [address], [place], [place], [id number], tel:[phone] [facility] No Information Doreen Cristina. [address] [place] [address], [id number], [place]. tel:[phone] Family History Family Member Type Diagnosis Age At Onset No Information Payers Payer name Insurance type Covered constitution party ID Authoriza tion(s) [facility] CI [id number] Social History Type Description Quantity Date Captured [...]
--- OUTSIDE RECORDS SUMMARY | 2024-11-08 17:31 | XMS_ITS | Clinical Summary ---
Author Organization [facility] Address [address] [place] [address] Care Team Providers Care C S S Representative Name Role Phone Johnnie Red MD Primary Care Provider [phone] Allergies No known active allergies Medications cetirizine [...] (02/04/2022): Added automatically from request for surgery [id number] RUI on CPAP 05/21/2020 Class 2 obesity in adult 05/21/2020 Primary osteoarthritis of right hip 04/29/2020 Overview (04/29/2020): Added automatically from request for surgery [id number] Immunizations Immunization Administration Dates Next Due Flucelvax Influenza Quad [...] Comments Blood Pressure 132/64 05/29/2022 11:34 AM DIRECTOR OF AGRICULTURE Pulse 68 05/29/2022 11:34 AM DIRECTOR OF AGRICULTURE Temperature 35.9 C (96.7 F) 05/29/2022 11:34 AM DIRECTOR OF AGRICULTURE Respiratory Rate 18 05/29/2022 11:34 AM DIRECTOR OF AGRICULTURE Oxygen Saturation 98% 05/29/2022 11:34 AM DIRECTOR OF AGRICULTURE Inhaled Oxygen Concentration - - Weight 130.2 kg (287 lb) 05/12/2022 5:20 AM DIRECTOR OF AGRICULTURE Height 193 cm (6' 4) 05/14/2022 11:30 AM DIRECTOR OF AGRICULTURE Body Mass Index 34.93 05/12/2022 5:20 AM DIRECTOR OF AGRICULTURE Plan of Treatment Health Maintenance Due Date Last Done Comments Colon Cancer Screening-Colonoscopy 1965 Depression Screening 1965 Hepatitis C Screening 1965 Prostate Cancer Screening-PSA 1965 DTaP/Tdap/Td Vaccine (1 - Tdap) 01/16/1975 Hepatitis B Screening 01/16/1982 Regular Well Visit/Exam 18-64 01/16/1982 Zoster Vaccine (1 of 2) 01/16/2014 Influenza Vaccine (Season Ended) 2025 04/26/2020, 04/01/2017 Pneumococcal vaccine <65 Aged Out No longer eligible based on patient's age to complete this topic Medical Devices Implanted Type Area Credit Office Manager Device Identifier Shelf Expiration Date Model / Serial / Lot [employer] [id number] Cup 55mm Acetabular Bi Mentum Femoral Proximal Press Fit - [id number] - [id number] Implanted:Qty: 1 on 05/23/2020 by Claude Colbert MD at [facility] Right: Hip [employer] [id number] 02/28/2024 [id number] / [id number] / [id number] [employer] [id number] Liner 55mm 28mm Acetabular Bi Mentum Femoral Proximal Polyethylene - [id number] - [id number] Implanted:Qty: 1 on 05/23/2020 by Claude Colbert MD at [facility] Right: Hip [employer] [id number] 11/28/2023 [id number] / [id number] / [id number] [employer] [id number] Actis Collar Hip 9 High Offset Stem Femoral - [id number] Implanted:Qty: 1 on 05/23/2020 by Claude Colbert MD at [facility] Right: Hip [employer] [id number] 02/27/2030 [id number] / / [id number] [employer] [id number] Articul/Lake 28mm Cementless Hip +1.5mm 12/14 Taper Head Femoral Latex Free - [id number] Implanted:Qty: 1 on 05/23/2020 by Claude Colbert MD at [facility] Right: Hip [employer] [id number] 03/30/2025 [id number] / / [id number] [employer] Cup 55mm Acetabular Bi Mentum Femoral Proximal Press Fit [id number] - [id number] Implanted:Qty: 1 on 05/12/2022 by Claude Colbert MD at [facility] Left: Hip [employer] [id number] 06/30/2024 [id number] / / [id number] Description:Implant pause pe rformed [employer] Liner Acet Hip Size 28 Poly Bi Mentum Altrx 55mm [id number] - [id number] Implanted:Qty: 1 on 05/12/2022 by Claude Colbert MD at [facility] Left: Hip [employer] [id number] 02/27/2027 [id number] / / [id number] Description:Implant pause pe rformed [employer] Actis L111 Mm Collar Hip 8 High Offset Stem Femoral [id number] - [id number] Implanted:Qty: 1 on 05/12/2022 by Claude Colbert MD at [facility] Left: Hip [employer] [id number] 02/28/2032 [id number] / / [id number] Description:Implant pause pe rformed [employer] Articul/Lake 28mm Cementless Hip +1.5mm 05/13 Taper Head Femoral Latex Free [id number] - [id number] Implanted:Qty: 1 on 05/12/2022 by Claude Colbert MD at [facility] Left: Hip [employer] [id number] 02/27/2027 [id number] / / [id number] Description:Implant pause pe rformed Insurance [facility] CHOICE PLUS Advance Directives For more information, please contact: [phone] * Full Code (Latest Code Status on File) Date Activated Date Inactivated Comments 05/23/2020 9:13 AM 05/23/2020 5:14 PM Care Teams C S S Representative Relationship Specialty Start Date End Date Johnnie Red MD [address] [place] [address] PCP - General Family Medicine 02/14/20
--- OUTSIDE RECORDS SUMMARY | 2024-11-08 17:31 | XMS_ITS | Referral Summary ---
Author Organization [facility] Address [address] [place] [address] Care Team Providers Care Sales Trainee Name Role Phone Johnnie Red MD Primary Care Provider [phone] Allergies No known active allergies Medications cetirizine [...] (02/04/2022): Added automatically from request for surgery [id number] RUI on CPAP 05/21/2020 Class 2 obesity in adult 05/21/2020 Primary osteoarthritis of right hip 04/29/2020 Overview (04/29/2020): Added automatically from request for surgery [id number] Immunizations Immunization Administration Dates Next Due Flucelvax [...] Comments Blood Pressure 132/64 05/29/2022 11:34 AM OFFICE RN Pulse 68 05/29/2022 11:34 AM OFFICE RN Temperature 35.9 C (96.7 F) 05/29/2022 11:34 AM OFFICE RN Respiratory Rate 18 05/29/2022 11:34 AM OFFICE RN Oxygen Saturation 98% 05/29/2022 11:34 AM OFFICE RN Inhaled Oxygen Concentration - - Weight 130.2 kg (287 lb) 05/12/2022 5:20 AM OFFICE RN Height 193 cm (6' 4) 05/14/2022 11:30 AM OFFICE RN Body Mass Index 34.93 05/12/2022 5:20 AM OFFICE RN Plan of Treatment Not on file Medical Devices Implanted Type Area Corporate Development Officer Device Identifier Shelf Expiration Date Model / Serial / Lot [employer] [id number] Cup 55mm Acetabular Bi Mentum Femoral Proximal Press Fit - [id number] - [id number] Implanted:Qty: 1 on 05/23/2020 by Claude Colbert MD at [facility] Right: Hip [employer] [id number] 02/28/2024 [id number] / [id number] / [id number] [employer] [id number] Liner 55mm 28mm Acetabular Bi Mentum Femoral Proximal Polyethylene - [id number] - [id number] Implanted:Qty: 1 on 05/23/2020 by Claude Colbert MD at [facility] Right: Hip [employer] [id number] 11/28/2023 [id number] / [id number] / [id number] [employer] [id number] Actis Collar Hip 9 High Offset Stem Femoral - [id number] Implanted:Qty: 1 on 05/23/2020 by Claude Colbert MD at [facility] Right: Hip [employer] [id number] 02/27/2030 [id number] / / [id number] [employer] [id number] Articul/Lake 28mm Cementless Hip +1.5mm /14 Taper Head Femoral Latex Free - [id number] Implanted:Qty: 1 on 05/23/2020 by Claude Colbert MD at [facility] Right: Hip [employer] [id number] 03/30/2025 [id number] / / [id number] [employer] Cup 55mm Acetabular Bi Mentum Femoral Proximal Press Fit [id number] - [id number] Implanted:Qty: 1 on 05/12/2022 by Claude Colbert MD at [facility] Left: Hip [employer] [id number] 06/30/2024 [id number] / / [id number] Description:Implant pause pe rformed [employer] Liner Acet Hip Size 28 Poly Bi Mentum Altrx 55mm [id number] - [id number] Implanted:Qty: 1 on 05/12/2022 by Claude Colbert MD at [facility] Left: Hip [employer] [id number] 02/27/2027 [id number] / / [id number] Description:Implant pause pe rformed [employer] Actis L111 Mm Collar Hip 8 High Offset Stem Femoral [id number] - [id number] Implanted:Qty: 1 on 05/12/2022 by Claude Colbert MD at [facility] Left: Hip [employer] [id number] 02/28/2032 [id number] / / [id number] Description:Implant pause pe rformed [employer] Articul/Lake 28mm Cementless Hip +1.5mm 14 Taper Head Femoral Latex Free [id number] - [id number] Implanted:Qty: 1 on 05/12/2022 by Claude Colbert MD at [facility] Left: Hip [employer] [id number] 02/27/2027 [id number] / / [id number] Description:Implant pause pe rformed Insurance Advance Directives For more information, please contact: [phone] * Full Code (Latest Code Status on File) Date Activated Date Inactivated Comments 05/23/2020 9:13 AM 05/23/2020 5:14 PM Care Teams Sales Trainee Relationship Specialty Start Date End Date Johnnie Red MD [address] [place] [address] PCP - General Family Medicine 02/14/20
[2024-11-08 20:01] LABS: Add Urine Microscopic? NO; Appearance Urine Clear (Clear); Bilirubin Urine Negative (Negative); Blood Urine Negative (Negative); Color Urine Yellow (Yellow); Glucose Urine UA Negative (Negative); Ketones Urine Negative (Negative); Leukocyte Esterase Ur Negative LEU/UL (Negative); Nitrate Urine Negative (Negative); Protein Urine Negative (Negative); Specific Grav Ur 1.011 (1.001-1.035); Urobilinogen Urine 0.2 mg/dL (<2.0)
[2024-11-12 10:38] LABS: Testosterone Free 36.9 pg/mL (35.0-155.0); Testosterone Total 226 ng/dL (250-1100)
== END 2024-11-08 15:00 | disposition home or self-care (01) ==
LOC: ANHGOSHLAB 15:00
PROVIDERS: PCP Family Medicine; Visit Provider Nurse Practitioner
DX: R68.82 Decreased libido (principal); R53.83 Other fatigue; R30.0 Dysuria
CPT/HCPCS: 36415; 81003; 84402; 84403

== ENCOUNTER 2024-12-05 08:47 | Outpatient (CLI) | payer OTHER, SELFPAY ==
--- OUTSIDE RECORDS SUMMARY | 2024-12-05 08:52 | XMS_ITS | Clinical Summary ---
Author Organization [facility] Address [address] [place] [address] Care Team Providers Care Compensation Agent Name Role Phone Johnnie Red MD Primary Care Provider [phone] Allergies No known active allergies Medications cetirizine [...] (02/04/2022): Added automatically from request for surgery [id number] RUI on CPAP 05/21/2020 Class 2 obesity in adult 05/21/2020 Primary osteoarthritis of right hip 04/29/2020 Overview (04/29/2020): Added automatically from request for surgery [id number] Immunizations Immunization Administration Dates Next Due Flucelvax [...] Comments Blood Pressure 132/64 05/29/2022 11:34 AM RUBBER STAMP DIES INSPECTOR Pulse 68 05/29/2022 11:34 AM RUBBER STAMP DIES INSPECTOR Temperature 35.9 C (96.7 F) 05/29/2022 11:34 AM RUBBER STAMP DIES INSPECTOR Respiratory Rate 18 05/29/2022 11:34 AM RUBBER STAMP DIES INSPECTOR Oxygen Saturation 98% 05/29/2022 11:34 AM RUBBER STAMP DIES INSPECTOR Inhaled Oxygen Concentration - - Weight 130.2 kg (287 lb) 05/12/2022 5:20 AM RUBBER STAMP DIES INSPECTOR Height 193 cm (6' 4) 05/14/2022 11:30 AM RUBBER STAMP DIES INSPECTOR Body Mass Index 34.93 05/12/2022 5:20 AM RUBBER STAMP DIES INSPECTOR Plan of Treatment Health Maintenance Due [...] this topic Medical Devices Implanted Type Area Reeling Operator Device Identifier Shelf Expiration Date Model / Serial / Lot [employer] [id number] Cup 55mm Acetabular Bi Mentum Femoral Proximal Press Fit - [id number] - [id number] Implanted:Qty: 1 on 05/23/2020 by Claude Colbert MD at [facility] Right: Hip [employer] [id number] 02/28/2024 [id number] / [id number] / [id number] [employer] [id number] Liner 55mm 28mm Acetabular Bi Mentum Femoral Proximal Polyethylene - [id number] - [id number] Implanted:Qty: 1 on 05/23/2020 by Claude Colbert MD at [facility] Right: Hip [employer] [id number] 11/28/2023 [id number] / [id number] / [id number] [employer] [id number] Actis Collar Hip 9 High Offset Stem Femoral - [id number] Implanted:Qty: 1 on 05/23/2020 by Claude Colbert MD at [facility] Right: Hip [employer] [id number] 02/27/2030 [id number] / / [id number] [employer] [id number] Articul/Lake 28mm Cementless Hip +1.5mm 12/14 Taper Head Femoral Latex Free - [id number] Implanted:Qty: 1 on 05/23/2020 by Claude Colbert MD at [facility] Right: Hip [employer] [id number] 03/30/2025 [id number] / / [id number] [employer] Cup 55mm Acetabular Bi Mentum Femoral Proximal Press Fit [id number] - [id number] Implanted:Qty: 1 on 05/12/2022 by Claude Colbert MD at [facility] Left: Hip [employer] [id number] 06/30/2024 [id number] / / [id number] Description:Implant pause pe rformed [employer] Liner Acet Hip Size 28 Poly Bi Mentum Altrx 55mm [id number] - [id number] Implanted:Qty: 1 on 05/12/2022 by Claude Colbert MD at [facility] Left: Hip [employer] [id number] 02/27/2027 [id number] / / [id number] Description:Implant pause pe rformed [employer] Actis L111 Mm Collar Hip 8 High Offset Stem Femoral [id number] - [id number] Implanted:Qty: 1 on 05/12/2022 by Claude Colbert MD at [facility] Left: Hip [employer] [id number] 02/28/2032 [id number] / / [id number] Description:Implant pause pe rformed [employer] Articul/Lake 28mm Cementless Hip +1.5mm 05/13 Taper Head Femoral Latex Free [id number] - [id number] Implanted:Qty: 1 on 05/12/2022 by Claude Colbert MD at [facility] Left: Hip [employer] [id number] 02/27/2027 [id number] / / [id number] Description:Implant pause pe rformed Insurance [facility] Advance Directives For more information, please contact: [phone] * Full Code (Latest Code Status on File) Date Activated Date Inactivated Comments 05/23/2020 9:13 AM 05/23/2020 5:14 PM Care Teams Compensation Agent Relationship Specialty Start Date End Date Johnnie Red MD [address] [place] [address] PCP - General Family Medicine 02/14/20
--- OUTSIDE RECORDS SUMMARY | 2024-12-05 08:52 | XMS_ITS | Referral Summary ---
Author Organization [facility] Address [address] [place] [address] Care Team Providers Care Food Safety Field Specialist Name Role Phone Johnnie Red MD Primary Care Provider [phone] Allergies No known active allergies Medications cetirizine [...] (02/04/2022): Added automatically from request for surgery [id number] RUI on CPAP 05/21/2020 Class 2 obesity in adult 05/21/2020 Primary osteoarthritis of right hip 04/29/2020 Overview (04/29/2020): Added automatically from request for surgery [id number] Immunizations Immunization Administration Dates Next Due Flucelvax [...] Comments Blood Pressure 132/64 05/29/2022 11:34 AM WINDOW TREATMENT INSTALLER Pulse 68 05/29/2022 11:34 AM WINDOW TREATMENT INSTALLER Temperature 35.9 C (96.7 F) 05/29/2022 11:34 AM WINDOW TREATMENT INSTALLER Respiratory Rate 18 05/29/2022 11:34 AM WINDOW TREATMENT INSTALLER Oxygen Saturation 98% 05/29/2022 11:34 AM WINDOW TREATMENT INSTALLER Inhaled Oxygen Concentration - - Weight 130.2 kg (287 lb) 05/12/2022 5:20 AM WINDOW TREATMENT INSTALLER Height 193 cm (6' 4) 05/14/2022 11:30 AM WINDOW TREATMENT INSTALLER Body Mass Index 34.93 05/12/2022 5:20 AM WINDOW TREATMENT INSTALLER Plan of Treatment Not on file Medical Devices Implanted Type Area Building Specialist Device Identifier Shelf Expiration Date Model / Serial / Lot [employer] [id number] Cup 55mm Acetabular Bi Mentum Femoral Proximal Press Fit - [id number] - [id number] Implanted:Qty: 1 on 05/23/2020 by Claude Colbert MD at [facility] Right: Hip [employer] [id number] 02/28/2024 [id number] / [id number] / [id number] [employer] [id number] Liner 55mm 28mm Acetabular Bi Mentum Femoral Proximal Polyethylene - [id number] - [id number] Implanted:Qty: 1 on 05/23/2020 by Claude Colbert MD at [facility] Right: Hip [employer] [id number] 11/28/2023 [id number] / [id number] / [id number] [employer] [id number] Actis Collar Hip 9 High Offset Stem Femoral - [id number] Implanted:Qty: 1 on 05/23/2020 by Claude Colbert MD at [facility] Right: Hip [employer] [id number] 02/27/2030 [id number] / / [id number] [employer] [id number] Articul/Lake 28mm Cementless Hip +1.5mm /14 Taper Head Femoral Latex Free - [id number] Implanted:Qty: 1 on 05/23/2020 by Claude Colbert MD at [facility] Right: Hip [employer] [id number] 03/30/2025 [id number] / / [id number] [employer] Cup 55mm Acetabular Bi Mentum Femoral Proximal Press Fit [id number] - [id number] Implanted:Qty: 1 on 05/12/2022 by Claude Colbert MD at [facility] Left: Hip [employer] [id number] 06/30/2024 [id number] / / [id number] Description:Implant pause pe rformed [employer] Liner Acet Hip Size 28 Poly Bi Mentum Altrx 55mm [id number] - [id number] Implanted:Qty: 1 on 05/12/2022 by Claude Colbert MD at [facility] Left: Hip [employer] [id number] 02/27/2027 [id number] / / [id number] Description:Implant pause pe rformed [employer] Actis L111 Mm Collar Hip 8 High Offset Stem Femoral [id number] - [id number] Implanted:Qty: 1 on 05/12/2022 by Claude Colbert MD at [facility] Left: Hip [employer] [id number] 02/28/2032 [id number] / / [id number] Description:Implant pause pe rformed [employer] Articul/Lake 28mm Cementless Hip +1.5mm 14 Taper Head Femoral Latex Free [id number] - [id number] Implanted:Qty: 1 on 05/12/2022 by Claude Colbert MD at [facility] Left: Hip [employer] [id number] 02/27/2027 [id number] / / [id number] Description:Implant pause pe rformed Insurance [facility] Address: [address] [place], [place] [id number] [facility] Address: [address] [place], [place] [id number] [facility] Address: [address] [place], [place] [id number] Advance Directives For more information, please contact: [phone] * Full Code (Latest Code Status on File) Date Activated Date Inactivated Comments 05/23/2020 9:13 AM 05/23/2020 5:14 PM Care Teams Food Safety Field Specialist Relationship Specialty Start Date End Date Johnnie Red MD [address] [place] [address] PCP - General Family Medicine 02/14/20
[2024-12-05 12:25] LABS: Cholesterol 193 mg/dL (0-200); HDL Direct 40 mg/dL; Triglycerides 90 mg/dL (<150)
[2024-12-09 11:08] LABS: Free Testosterone (Direct) 3.5 pg/mL (6.6-18.1)
== END 2024-12-05 08:48 | disposition home or self-care (01) ==
LOC: ANHGOSHLAB 08:48
PROVIDERS: PCP Family Medicine; Visit Provider Family Medicine
DX: R79.89 Other specified abnormal findings of blood chemistry (principal); R53.83 Other fatigue; Z00.00 Encounter for general adult medical examination without abnormal findings; E66.01 Morbid (severe) obesity due to excess calories
CPT/HCPCS: 36415; 80061; 84402; 84403